=== PATIENT | male | born 1945 | race Caucasian/White ===

== ENCOUNTER 2016-08-27 06:31 | Day surgery (SDC) | payer MEDICARE, OTHER ==
[2016-08-23 14:28] VITALS: BMI 25.0
[~2016-08-27 06:31] MED LIST: LACTATED RINGERS 1,000 ML IV SCH
[2016-08-27 08:03] VITALS: RESP 16; TEMP 97
[2016-08-27] MEDS ORDERED: LIDOCAINE 1% 20 ML VIAL (10MG/ML) FOR IV START INTRADERMA ONE (08:08)
[2016-08-27] MEDS ORDERED: LIDOCAINE 1% INJ 10MG/ML (20 ML MDV) ONE (08:10)
[2016-08-27] MEDS ORDERED: PROPOFOL 10 MG/ML 20 ML VIAL IV ONE (08:10)
--- NOTE | 2016-08-27 08:58 | P.PCN ---
Date of Procedure: 08/27/16 Preoperative Diagnosis: Patient history colon polyps Postoperative Diagnosis: Same extremely poor bowel prep Procedure(s) Performed: Attempted colonoscopy Implants: Anesthesia: MAC Surgeon: Isabel Cm Estimated Blood Loss (ml): 0 IV fluids (ml): 700 Pathology: none sent Condition: stable Disposition: PACU Indications for Procedure: History of colon polyps aborted colonoscopy March secondary to poor bowel prep Operative Findings: Extremely poor bowel prep with copious amounts of liquid stool repeatedly flowing into the colonic lumen Description of Procedure: Patient was taken to the endoscopy suite and following sedation he underwent an EGD, following this an attempted colonoscopy was performed. He was placed in the left lateral decubitus position. Prior to the procedure the patient began to pass stool and gas. He passed copious amounts of liquid stool. The patient underwent a rectal exam patient was noted to have adequate sphincter tone no masses noted. The scope was introduced into the rectum and able to be passed through the rectum and sigmoid colon constantly suctioning liquid stool which was passed into the lumen of the bowel. Although attempts were made to flush the bowel the stool from above was liquid and was continuously flowing into the lumen. The scope was able to be advanced to approximately 100cm and was believed to be in the area of the right colon however large amounts of stool were present. Despite attempts to suction the stool clean bowel secondary to stool continuously coming from above. In the distalmost part of the scope there was noted to be inflammation of the mucosa and a possible hemangioma again however secondary to the repeat covering of this area with stool it was felt that it was not safe to do a biopsy at this time. Recommended that the patient undergo a several-day colon cleansing prior to any repeated attempts to do another colonoscopy. Fashion/plan: 1. Extremely poor bowel prep repeat colonoscopy after new bowel prep
--- NOTE | 2016-08-27 08:59 | P.PCN ---
Date of Procedure: 08/27/16 Preoperative Diagnosis: Postoperative Diagnosis: Procedure(s) Performed: Procedure: Esophagogastroduodenoscopy and biopsy. Preoperative diagnosis: Iron deficiency anemia and history of ulcer disease. Postoperative diagnosis: 1. Hiatal hernia with no obvious esophagitis or complicated reflux disease. 2. Mild antral gastritis. 3. Multiple biopsies obtained from the duodenum, antrum and esophagus. Preparation sedation: Was provided by anesthesia. Brief clinical history: The patient is a 70-year-old male who is scheduled today for colonoscopy with Dr. Cm who asked that I perform an upper endoscopy at the same time because of history of iron deficiency anemia and ulcer disease. The patient is not having any upper GI complaints or any alarm symptoms. Procedure: With the patient on his left lateral decubitus position and after informed consent and adequate sedation, I passed the Olympus-GIF 160 video upper endoscope through the cricopharyngeus down the esophagus. GE junction was around 40 cm from the incisors and there was a small sliding hiatal hernia. The esophagus did not show any obvious erosions, ulcers, strictures or Garcia 's esophagus. The endoscope was then passed into the stomach which was insufflated with air and inspected in detail including the retroflex view in the cardia. There was some mottling and erythema and minimal friability in the antrum and immediate prepyloric area but no ulcers or erosions. Pyloric channel , duodenal bulb, post bulbar area and descending duodenum appeared within normal limits. Because of his anemia, I obtained biopsies from the duodenum, antrum and esophagus then the endoscope was withdrawn. The patient tolerated the procedure well. Plan: The patient will be undergoing colonoscopy shortly. Will await biopsy results and further plans can be made based on his course and biopsy results. I would be happy to see in the future if needed. Implants: Indications for Procedure: Operative Findings: Description of Procedure:
--- NOTE | 2016-08-27 09:00 | P.DS ---
Providers Attending physician: Isabel mC Primary care physician: Cristofer Jones Plan - Discharge Summary Discharge Medication List Albuterol Inhaler [Ventolin Hfa Inhaler] 1 puff INHALATION DAILY PRN 11/02/13 [ History] DULoxetine HCL [Cymbalta] 30 mg PO BID 11/02/13 [History] LORazepam [LORazepam] 1 mg PO TID 11/02/13 [History] Albuterol Nebulized [Ventolin Nebulized] 2.5 mg INHALATION DAILY PRN 03/15/16 [ History] Cyanocobalamin (Vitamin B-12) [Vitamin B-12] 6,000 mcg PO DAILY 03/15/16 [ History] Ferrous Sulfate [Feosol] 325 mg PO DAILY 03/15/16 [History] L.acidoph,Paracasei, B.lactis [Probiotic] 1 each PO DAILY 03/15/16 [History] Methylsulfonylmethane [MSM] 1,000 mg PO DAILY 03/15/16 [History] Mometasone Furoate [Asmanex Hfa] 1 puff INHALATION BID 03/15/16 [History] Multivitamins, Thera [Multivitamin] 1 tab PO DAILY 03/15/16 [History] Naproxen Sodium [Aleve] 220 mg PO DAILY PRN 03/15/16 [History] Omeprazole 20 mg PO BID 03/15/16 [History] Oxybutynin Chloride 5 mg PO BID 03/15/16 [History] Polyethylene Glycol 3350 [Miralax] 17 gm PO DAILY 03/15/16 [History] Triamcinolone Acetonide [Kenalog] 100 gm TP DAILY PRN 03/15/16 [History] Tiotropium Br/Olodaterol HCl [Stiolto Respimat Inhal Allen] 2 spray INHALATION DAILY 08/23/16 [History] Follow up Appointment(s)/Referral(s): Isabel Cm MD [STAFF PHYSICIAN] - 3 Days Discharge Disposition: HOME SELF-CARE
[2016-08-27 09:29] VITALS: BP 158/86; PULSE 59
== END 2016-08-27 09:55 | disposition home or self-care (01) ==
LOC: ORWHC2ENDO 06:31
PROVIDERS: ATTEND Surgery
DX: K29.50 Unspecified chronic gastritis without bleeding (principal); K21.0 Gastro-esophageal reflux disease with esophagitis; D50.9 Iron deficiency anemia, unspecified; Z86.010 Personal history of colon polyps; K44.9 Diaphragmatic hernia without obstruction or gangrene; J44.9 Chronic obstructive pulmonary disease, unspecified; Z87.891 Personal history of nicotine dependence; Z79.51 Long term (current) use of inhaled steroids; Z79.899 Other long term (current) drug therapy; Z91.013 Allergy to seafood
CPT/HCPCS: 88305; 88342; 45378; 43239; J2001; J2704

== ENCOUNTER → 2018-05-05 | Outpatient (CLI) | payer MEDICARE, OTHER ==
--- NOTE | 2018-05-05 15:03 | CONS ---
CONSULTATION REASON FOR CONSULTATION: Disruptive sleep and excessive daytime sleepiness. HISTORY OF PRESENT ILLNESS: A 72-year-old male patient who is coming in for evaluation at the [facility] because of feeling tired and sleepy all the time. Despite sleeping, the patient does not feel refreshed and is constantly feeling fatigued and tired and his symptoms are excessive. For that reason, he decided to come back to the [facility]. Going back through her records, the patient came in for similar complaints back in 2014 and at that time, the patient was seen by Dr. Brown for a sleep evaluation. A sleep study was conducted on 11/14/2014. At that time, the patient used to weigh around 197 pounds. He sleep efficiency back pain was 76% with a latency to sleep onset of around 19 minutes. No REM was identified and the patient's sleep architecture was quite abnormal with over representation of stage I sleep that was approaching 38% in addition to 55% stage II, 6.2% stage III, and 0% REM sleep. He had an arousal index of 42 with a total of 242 arousals and his apnea-hypopnea index was 11.9. The patient also had severe periodic limb movement with a total of 641 periodic limb movements counted with an index of 113. There were 38 periodic limb movements with arousals with an index of 6.7. Based on these results, the patient was given a CPAP therapy pressure of 11 cm of water. The patient tried the CPAP and subsequently he quit the treatment as the patient was unable to tolerate CPAP therapy. I noted that on his CPAP titration study, the patient continued to have excessive periodic limb movements. The arousal index dropped down to 6.3, with complete elimination of the obstructive respiratory events. On today's evaluation, I find this patient quite anxious. He has been going to bed around 10 p.m. and getting up panic at 10 a.m. in the morning. His anxiety has been extensive as the patient had some marital issues. He is currently on a combination of Ativan 0.5 mg 3 times a day and the patient is heavily dependent on benzodiazepines. The patient also has been on a combination of BuSpar at a dose of 5 mg 1 tablet twice a day and venlafaxine 75 mg SA 1 tablet a day. He has had iron deficiency and based on the most recent record, his serum iron level is up to 59 and the patient is on iron supplements orally. The patient's iron levels are from 09/10/2017. In terms of sleep apnea, the patient has lost around 16 to 17 pounds. He is not snoring for now. His main issue is inability to effectively get refreshed after sleeping a good number of hours of sleep. His blood work otherwise is within normal limits. He has normal thyroid function test and liver function tests and the rest of the blood work and electrolytes are within normal limits. His current Alsey Score is at 13. No sleep paralysis. No hallucinations. No cataplexy. No other complaints otherwise. PAST MEDICAL HISTORY: 1. Mild obstructive sleep apnea, as mentioned, with an AHI of 11.9. 2. Severe periodic limb movements. 3. Chronic anxiety. 4. Depression. 5. History of headaches. 6. Acid reflux. 7. BPH. 8. Attention deficit disorder. 9. Bronchial asthma. 10.Iron deficiency currently on oral iron supplements. 11.Psoriasis. PAST SURGICAL HISTORY: Includes penile body plication in addition to hand surgery. DRUG ALLERGIES: Not known. SOCIAL HISTORY: The patient is a former smoker. No history of alcohol. No history of IV drugs. CURRENT MEDICATIONS: Include ProAir rescue inhaler on a as-needed basis, Mometasone 220 mcg 2 puffs once a day, 2 puffs once a day. BuSpar 5 mg p.o. twice a day. Lorazepam 0.5 mg 3 times a day. Venlafaxine 75 mg SA 1 tablet a day. Oxybutynin 5 mg p.o. twice a day, triamcinolone cream, omeprazole 20 mg p.o. daily, calcium supplement, vitamin D supplement, ferrous sulfate 25 mg p.o. daily, cyanocobalamin and albuterol HFA on a p.r.n. basis. SOCIAL HISTORY: Former smoker. No history of alcohol, no history of IV drugs. FAMILY HISTORY: Negative for sleep apnea. REVIEW OF SYSTEMS: A 12-point review of system was done. The patient admits to have some restlessness in lower extremities. Numbness, tingling and restlessness that sometimes wakes him up and gives him the urge to walk. He wakes up with dry mouth. He has lost about 17 pounds. No naps during the day. No dreams. He does not wake up in the middle of the night. He has not been involved in a motor vehicle accident because of feeling drowsy or sleepy. PHYSICAL EXAMINATION: His current vital signs are as follows. His Alsey score is at 13. The blood pressure is 150/75, pulse 58, respirations 16, temperature 97.5, saturation 97% on room air. BMI 24.5, weight is 181, height is 6, 2, neck size 15.5 inches, Alsey score is 13. GENERAL APPEARANCE: Calm, comfortable. Head is atraumatic, normocephalic. Neck is supple. No JVD. No goiter or neck masses. LUNGS: Clear to auscultation. HEART: Sounds regular rate and rhythm. Normal S1, S2. No S3, S4. No murmurs. ABDOMEN: Soft, nontender. No organomegaly. EXTREMITIES: No edema. No cyanosis or clubbing. NEUROLOGIC: The patient is alert and oriented x3. No focal neurological deficits. PSYCHIATRIC: The patient has increased anxiety. No symptoms of active depression, no PTSD. Skin history of psoriasis, currently neck stable. IMPRESSION: Hypersomnia, chronic Alsey score of 13. The patient seems to be sleeping good, more than 8 hours in 24 hours. Yet, he is waking up non refreshed and he is feeling sleepy and tired during the day. He has been diagnosed having obstructive sleep apnea four years ago. However, since then, the patient has lost around 16, 17 pounds. Note that the patient was started on CPAP therapy at that time, and the treatment had failed and the patient opted not to proceed with the treatment. Since then, the patient has lost weight and has not been on any GILBERTO treatment. I noted that he had excessive periodic limb movement in the lower extremities on his previous sleep studies. This was noted on his polysomnogram and his CPAP titration. The patient has some symptoms to suggest restless legs syndrome. He is on a SSRI which potentially exacerbates the periodic limb movements. It is likely, that periodic limb movements/restless leg may be potentiating or exacerbating his daytime sleepiness by making this patient's sleep more fragmented. This is something that we need to concentrate further. Other comorbidities include increased anxiety and some episodic pain which could be viewed as additional factors affecting the patient's sleep quality. My overall impression is that the sleep apnea has a limited role in the patient's symptoms. PLAN: 1. I asked the patient to continue the same medication. 2. Continue iron supplements. 3. Serum iron levels are within normal limits. 4. Rest of the blood work and within normal limits. 5. Repeat a screening polysomnogram to reevaluate this patient. 6. Evaluate the extent of sleep disruption and decide on the factors that are affecting the patient's inability to maintain sleep. Accordingly, will make further recommendations. I am very much inclined treating periodic limb movements which in my view could have been one of the main factors affecting this patient's sleep maintenance. Prosper continue to follow and make final recommendations following his polysomnogram. MMODL / IJN: [id number] /
== END | disposition home or self-care (01) ==
LOC: SLEEP 13:29
PROVIDERS: ATTEND Internal Medicine Critical Care Medicine
DX: G47.10 Hypersomnia, unspecified (principal); F41.9 Anxiety disorder, unspecified; R52 Pain, unspecified; Z87.891 Personal history of nicotine dependence; Z79.899 Other long term (current) drug therapy
CPT/HCPCS: 99211

== ENCOUNTER 2018-08-10 14:30 | Observation (INO) | payer MEDICARE, OTHER ==
[2018-08-10] MEDS ORDERED: SODIUM CHLORIDE 0.9% 500 ML 500 ML IV ONE (15:48)
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
[2018-08-10 16:26] LABS: Basophils % (A) 0 %; Eosinophils # (A) 0.1 k/uL (0-0.7); Eosinophils % (A) 1 %; HCT 35.5 % (39.0-53.0); HGB 11.2 gm/dL (13.0-17.5); Hypochromasia Moderate; Lymphocytes # (A) 0.6 k/uL (1.0-4.8); Lymphocytes % (A) 11 %; MCH 23.3 pg (25.0-35.0); MCHC 31.5 g/dL (31.0-37.0); Mean Platelet Volume 7.4; Microcytosis Slight; Monocytes # (A) 0.4 k/uL (0-1.0); Monocytes % (A) 7 %; Neutrophils # (A) 4.3 k/uL (1.3-7.7); Neutrophils % (A) 78 %; Platelet Count 224 k/uL (150-450); RDW 14.8 % (11.5-15.5); WBC 5.5 k/uL (3.8-10.6)
[2018-08-10 16:32] LABS: Glucose,Whole Blood 82 mg/dL (75-99)
[2018-08-10 16:39] LABS: ALT 20 U/L (21-72); AST 15 U/L (17-59); Albumin 3.3 g/dL (3.5-5.0); Alkaline Phosphatase 80 U/L (38-126); Anion Gap 7 mmol/L; Blood Urea Nitrogen 18 mg/dL (9-20); Calcium 9.2 mg/dL (8.4-10.2); Carbon Dioxide 24 mmol/L (22-30); Chloride 110 mmol/L (98-107); Glucose 89 mg/dL (74-99); Potassium 4.1 mmol/L (3.5-5.1); Sodium 141 mmol/L (137-145); Total Bilirubin 0.9 mg/dL (0.2-1.3); Total Protein 5.6 g/dL (6.3-8.2)
[2018-08-10 16:51] LABS: INR 0.9 (<1.2); Partial Thromboplastin Time 24.3 sec (22.0-30.0); Prothrombin Time 10.2 sec (9.0-12.0)
--- NOTE | 2018-08-10 16:54 | CT ---
EXAMINATION TYPE: CT brain wo con DATE OF EXAM: 08/10/2018 COMPARISON: None HISTORY: altered mental status CT DLP: 1153.4 mGycm Automated exposure control for dose reduction was used. FINDINGS: There is cerebral cortical atrophy. There is no mass effect nor midline shift. There is no sign of in tracranial hemorrhage. The calvarium is intact. There is a 9 mm rounded soft tissue density mass within the right orbit lateral to the optic nerve. T he globes are symmetric. Extraocular muscles are fairly symmetric. Mass appears separate from the keyanna be. Mass effect has contact with the lateral aspect of the optic nerve. IMPRESSION: CEREBRAL ATROPHY. NO ACUTE INTRACRANIAL ABNORMALITY. 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
[2018-08-10 17:36] LABS: Appearance,Urine Clear (Clear); Bilirubin,Urine Negative (Negative); Blood,Urine Negative (Negative); Color,Urine Yellow; Glucose,Urine (UA) Negative (Negative); Ketones,Urine 1+ (Negative); Leukocyte Esterase,Urine Negative (Negative); Nitrite,Urine Negative (Negative); Protein,Urine Negative (Negative); Specific Gravity,Urine 1.016 (1.001-1.035); Urobilinogen,Urine <2.0 mg/dL (<2.0)
--- NOTE | 2018-08-10 17:43 | XR ---
EXAMINATION TYPE: XR chest 2V DATE OF EXAM: 08/10/2018 COMPARISON: 05/31/2016 HISTORY: Altered mental status TECHNIQUE: Frontal and lateral views of the chest are obtained. FINDINGS: There is no heart failure nor confluent pneumonic infiltrate. Heart size is normal. There is no pleural effusion. There is 20% loss of height of T12 vertebra. There are no hilar masses. IMPRESSION: No active cardiopulmonary disease. Old T12 mild compression fracture.
[2018-08-10 17:58] LABS: Amphetamine Screen,Urine Not Detected (NotDetected); Barbiturate Screen,Urine Not Detected (NotDetected); Benzodiazepines Screen,Urine Detected (NotDetected); Cocaine Screen,Urine Not Detected (NotDetected); Methadone Screen, Urine Not Detected (NotDetected); Opiate Screen,Urine Not Detected (NotDetected); Oxycodone Screen, Urine Not Detected (NotDetected); Phencyclidine Screen,Urine Not Detected (NotDetected); Tricyclic Antidepressant,Urine Not Detected (NotDetected); Urn Cannabinoid Scrn Not Detected (NotDetected)
[2018-08-10] MEDS ORDERED: SODIUM CHLORIDE 0.9% 1,000 ML IV ONE (18:20)
[2018-08-10] MEDS ORDERED: CYCLOBENZAPRINE 10 MG TAB PO PRN (22:28)
[2018-08-10] MEDS ORDERED: ALBUTEROL NEBULIZED 2.5 MG/3 ML INHALATION PRN (22:28)
[2018-08-10] MEDS: OXYBUTYNIN CHLORIDE 5 MG TAB PO SCH (23:20)
[2018-08-10] MEDS: LORazepam 1 MG TAB PO PRN (23:20)
[2018-08-11] MEDS ORDERED: PANTOPRAZOLE 40 MG TABLET PO SCH (07:30)
[2018-08-11] MEDS: IPRATROPIUM 0.5 MG/2.5 ML NEBU INHALATION SCH ×4 (07:37→19:28)
[2018-08-11] MEDS: FORMOTEROL FUMARATE 20 MCG/2 ML NEBU INHALATION SCH ×2 (07:37→19:28)
[2018-08-11] MEDS: OXYBUTYNIN CHLORIDE 5 MG TAB PO SCH ×2 (08:41→20:42)
[2018-08-11] MEDS: LORazepam 1 MG TAB PO PRN ×2 (08:44→20:42)
[2018-08-11] MEDS ORDERED: VENLAFAXINE HCL ER 150 MG CAP PO SCH (09:00)
[2018-08-11] MEDS ORDERED: VITAMIN E (DL,TOCOPHERYL ACET) 400 UNIT CAP PO SCH (09:00)
[2018-08-11 09:30] LABS: T4, Free (Free Thyroxine) 1.3 ng/dL (0.78-2.19)
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
[2018-08-11 13:38] VITALS: RESP 18
[2018-08-11 19:28] VITALS: BP 162/77; TEMP 98
[2018-08-11 19:30] VITALS: PULSE 58
== END 2018-08-11 21:40 | disposition other institution (70) ==
LOC: EC 14:30 → 4MS4W 18:20
PROVIDERS: ADMIT Family Medicine; ATTEND Family Medicine
DX: R41.82 Altered mental status, unspecified (principal); R41.89 Other symptoms and signs involving cognitive functions and awareness; R41.3 Other amnesia; G93.9 Disorder of brain, unspecified; K21.9 Gastro-esophageal reflux disease without esophagitis; J44.9 Chronic obstructive pulmonary disease, unspecified; L40.9 Psoriasis, unspecified; N48.6 Induration penis plastica; F41.9 Anxiety disorder, unspecified; R06.00 Dyspnea, unspecified; H53.9 Unspecified visual disturbance; E03.9 Hypothyroidism, unspecified; E46 Unspecified protein-calorie malnutrition; Z79.899 Other long term (current) drug therapy; Z91.013 Allergy to seafood; Z87.891 Personal history of nicotine dependence; Z87.81 Personal history of (healed) traumatic fracture
CPT/HCPCS: 96361 ×2; 96360; 99285; 36415; 94640 ×2; 93005; 84439; 80053; 84443; 84484; 85025; 85610; 85730; 81003; 80306; 71046; 70450; G0378 ×2

== ENCOUNTER 2020-11-01 10:10 | Day surgery (SDC) | payer MEDICARE, OTHER ==
[2020-10-27 13:44] VITALS: BMI 23.1
--- NOTE | 2020-11-01 07:37 | P.GSHP ---
History of Present Illness H&P Date: 11/01/20 CHIEF COMPLAINT: GERD and colon screen HISTORY OF PRESENT ILLNESS: The patient is a 75-year-old male who presents with gastroesophageal reflux disease and need for colon screen. Upper and lower endoscopy were offered for further evaluation and management. PAST MEDICAL HISTORY: Please see list. PAST SURGICAL HISTORY: Please see list. MEDICATIONS: Please see list. ALLERGIES: Please see list. SOCIAL HISTORY: No illicit drug use FAMILY HISTORY: No reports of Crohn disease or ulcerative colitis. REVIEW OF ORGAN SYSTEMS: CONSTITUTIONAL: No reports of fevers or chills. GI: Denies any blood in stools or constipation. PHYSICAL EXAM: VITAL SIGNS: Stable GENERAL: Well-developed pleasant in no acute distress. HEENT: No scleral icterus. Extraocular movements grossly intact. Moist buccal mucosa. NECK: Supple without lymphadenopathy. CHEST: Unlabored respirations. Equal bilateral excursions. CARDIOVASCULAR: Regular rate and rhythm. Distal 2+ pulses. ABDOMEN: Soft, nondistended. MUSCULOSKELETAL: No clubbing, cyanosis, or edema. ASSESSMENT: 1. Gastroesophageal reflux disease 2. Colon screen. PLAN: 1. Recommend proceeding with an upper and lower endoscopy Past Medical History Past Medical History: Asthma, GERD/Reflux, Memory Impairment, Skin Disorder, Thyroid Disorder Additional Past Medical History / Comment(s): PSORIASIS. PEYRONIES DISORDER, HX Ulcers, History of Any Multi-Drug Resistant Organisms: None Reported Past Surgical History: Orthopedic Surgery Additional Past Surgical History / Comment(s): PENILE CORPRAL BODY PLICATION. HAND SX X2 Past Anesthesia/Blood Transfusion Reactions: No Reported Reaction Smoking Status: Former smoker - Past Family History Mother Family Medical History: No Reported History Medications and Allergies Home Medications Medication Instructions Recorded Confirmed Type Albuterol Inhaler (Mhu) [Ventolin 2 puff INHALATION RT-Q4H PRN 11/02/13 10/27/20 History Hfa Inhaler (Mhu)] Omeprazole 40 mg PO DAILY 03/15/16 10/27/20 History Oxybutynin Chloride 5 mg PO DAILY 03/15/16 10/27/20 History Venlafaxine HCl [Effexor XR] 37.5 mg PO DAILY 08/10/18 10/27/20 History Cholecalciferol [Vitamin D3 (25 50 mcg PO DAILY 10/27/20 10/27/20 History Mcg = 1000 Iu)] Cyanocobalamin (Vitamin B-12) 1,000 mcg PO DAILY 10/27/20 10/27/20 History [Vitamin B-12] Donepezil [Aricept] 10 mg PO HS 10/27/20 10/27/20 History Melatonin 3 mg PO HS 10/27/20 10/27/20 History Memantine [Namenda] 10 mg PO DAILY 10/27/20 10/27/20 History Mometasone Furoate [Asmanex Hfa] 1 puff INHALATION DAILY 10/27/20 10/27/20 History Tiotropium Br/Olodaterol HCl 2 puff INHALATION DAILY 10/27/20 10/27/20 History [Stiolto Respimat Inhal [place]] buPROPion XL [Wellbutrin Xl] 150 mg PO DAILY 10/27/20 10/27/20 History modafiniL [Provigil] 100 mg PO QAM 10/27/20 10/27/20 History Allergies Allergy/AdvReac Type Severity Reaction Status Date / Time shellfish derived Allergy Swelling Verified 10/27/20 13:30
[~2020-11-01 10:10] MED LIST changes: +LIDOCAINE 1% (10MG/ML) FOR IV START INTRADERMA PRN
[2020-11-01 10:58] VITALS: TEMP 96.9
[2020-11-01] MEDS ORDERED: PHENYLEPHRINE-0.9% NACL SYG 1,000 MCG/10 ML SYRINGE ONE (11:20)
[2020-11-01] MEDS ORDERED: PROPOFOL 10 MG/ML 20 ML VIAL IV ONE (11:20)
[2020-11-01] MEDS ORDERED: LIDOCAINE 1% INJ 10MG/ML (20 ML MDV) ONE (11:20)
[2020-11-01 12:13] VITALS: BP 126/58; PULSE 50; RESP 16
--- NOTE | 2020-11-01 12:22 | P.PCN ---
Date of Procedure: 11/01/20 Description of Procedure: PREOPERATIVE DIAGNOSIS: Gastroesophageal reflux disease. Epigastric abdominal pain POSTOPERATIVE DIAGNOSIS: Gastritis. Gastroesophageal reflux disease. Diaphragmatic hiatal hernia OPERATION: Esophagogastroduodenoscopy with biopsies along antrum. SURGEON: Brenda Briceño MD ANESTHESIA: MAC. INDICATIONS: The patient is a 75-year-old and epigastric abdominal pain male who presents with a history of reflux disease. Benefits and risks of the procedure were described. Informed consent was obtained. DESCRIPTION: The patient was brought into the endoscopy suite and laid in the left lateral decubitus position. An Olympus gastroscope was passed along the posterior oropharynx down to the distal esophagus where the squamocolumnar junction was encountered at 44 cm from the incisors. The stomach was entered and no bile reflux was found. Additional findings are listed below. Biopsies with cold forceps were obtained of the antrum. The first through third portion of the duodenum was examined and unremarkable. Retroflexion of the scope confirmed Hill grade 4 lower esophageal valve. The squamocolumnar junction demonstrated LA grade B erosive esophagitis. The stomach was desufflated. The patient tolerated the procedure well. FINDINGS: Squamocolumnar junction 44 cm from the incisors. Diaphragmatic hiatus at 45 cm. Hiatal hernia, 1 cm Hill grade 4 lower esophageal valve. LA grade B erosive esophagitis. No active duodenitis. Chronic gastritis RECOMMENDATIONS: Upper endoscopy as needed.
--- NOTE | 2020-11-01 12:42 | P.PCN ---
Date of Procedure: 11/01/20 Description of Procedure: PREOPERATIVE DIAGNOSIS: Personal history of colon polyps Colonoscopy screening POSTOPERATIVE DIAGNOSIS: Tubular adenoma descending colon Tubular adenoma transverse colon Tubular adenoma ascending colon Sigmoid diverticulosis OPERATION: Colonoscopy to the ileocecal valve and appendiceal orifice, cecum Colonoscopy with hot snare polypectomy SURGEON: Brenda Briceño MD. ANESTHESIA: MAC. INDICATIONS: The patient is an 75-year-old male who presents personal history of colon polyps. Last colonoscopy over 5 years. Benefits and risks were described and informed consent was obtained. DESCRIPTION OF PROCEDURE: The patient had undergone Sutab prep. He underwent over 2 day prep. The patient had been brought into the operating room and laid in the left lateral decubitus position. After adequate intravenous sedation, the rectum was examined with 2% lidocaine jelly. The prostate was unremarkable. No external hemorrhoids were encountered. The rectal tone was within normal limits. No lesions were palpated in the rectal vault. An Olympus colonoscope was advanced until the cecum, ileocecal valve and appendiceal orifice were clearly viewed. The prep was fair. The sigmoid colon was highly redundant requiring abdominal wall pressure. Sigmoid diverticulosis was encountered. Colonic polyps were found and removed. No evidence of focal colitis was found. Retroflexion of the scope demonstrated grade 2 internal hemorrhoids without active bleeding or inflammation. The colon was desufflated. The patient had tolerated the procedure well. Withdrawal time was over 6 minutes. FINDINGS: Aronchick preparation quality scale 3 (1-5) Internal hemorrhoids, grade 2 No external hemorrhoids No arteriovenous malformations. Sigmoid diverticulosis Removal of 5 polyps: - Snare polypectomy ascending colon, 5 mm tubulovillous adenoma polyp. - Snare polypectomy transverse colon 3, 5-8 mm flat villous adenoma polyp. - Snare polypectomy descending colon, 5 mm flat villous adenoma polyp. No focal colitis. RECOMMENDATIONS: 1. Recommend colon prep more than 2 days 2. Repeat colonoscopy 3 years, 2023 Plan - Discharge Summary Discharge Rx Participant: No New Discharge Prescriptions: Continue Albuterol Inhaler (Mhu) [Ventolin Hfa Inhaler (Mhu)] 2 puff INHALATION RT-Q4H PRN PRN Reason: Shortness Of Breath Oxybutynin Chloride 5 mg PO DAILY Omeprazole 40 mg PO DAILY Venlafaxine HCl [Effexor XR] 37.5 mg PO DAILY Tiotropium Br/Olodaterol HCl [Stiolto Respimat Inhal [place]] 2 puff INHALATION DAILY Mometasone Furoate [Asmanex Hfa] 1 puff INHALATION DAILY Melatonin 3 mg PO HS Donepezil [Aricept] 10 mg PO HS Cyanocobalamin (Vitamin B-12) [Vitamin B-12] 1,000 mcg PO DAILY buPROPion XL [Wellbutrin XL] 150 mg PO DAILY Cholecalciferol [Vitamin D3 (25 Mcg = 1000 Iu)] 50 mcg PO DAILY Memantine [Namenda] 10 mg PO DAILY modafiniL [Provigil] 100 mg PO QAM Discharge Medication List Albuterol Inhaler (Mhu) [Ventolin Hfa Inhaler (Mhu)] 2 puff INHALATION RT-Q4H PRN 11/02/13 [History] Omeprazole 40 mg PO DAILY 03/15/16 [History] Oxybutynin Chloride 5 mg PO DAILY 03/15/16 [History] Venlafaxine HCl [Effexor XR] 37.5 mg PO DAILY 08/10/18 [History] Cholecalciferol [Vitamin D3 (25 Mcg = 1000 Iu)] 50 mcg PO DAILY 10/27/20 [History] Cyanocobalamin (Vitamin B-12) [Vitamin B-12] 1,000 mcg PO DAILY 10/27/20 [History] Donepezil [Aricept] 10 mg PO HS 10/27/20 [History] Melatonin 3 mg PO HS 10/27/20 [History] Memantine [Namenda] 10 mg PO DAILY 10/27/20 [History] Mometasone Furoate [Asmanex Hfa] 1 puff INHALATION DAILY 10/27/20 [History] Tiotropium Br/Olodaterol HCl [Stiolto Respimat Inhal [place]] 2 puff INHALATION DAILY 10/27/20 [History] buPROPion XL [Wellbutrin XL] 150 mg PO DAILY 10/27/20 [History] modafiniL [Provigil] 100 mg PO QAM 10/27/20 [History] Follow up Appointment(s)/Referral(s): Brenda Briceño MD [STAFF PHYSICIAN] - 11/09/20 Patient Instructions/Handouts: Hiatal Hernia (DC), Colorectal Polyps (GEN) Activity/Diet/Wound Care/Special Instructions: Repeat colonoscopy 3 years, 2023 Discharge Disposition: HOME SELF-CARE
== END 2020-11-01 13:13 | disposition home or self-care (01) ==
LOC: ORWHC2ENDO 10:10
PROVIDERS: ATTEND Surgery Plastic and Reconstructive Surgery
DX: K29.50 Unspecified chronic gastritis without bleeding (principal); K57.30 Diverticulosis of large intestine without perforation or abscess without bleeding; K44.9 Diaphragmatic hernia without obstruction or gangrene; Z79.51 Long term (current) use of inhaled steroids; K21.9 Gastro-esophageal reflux disease without esophagitis; D12.2 Benign neoplasm of ascending colon; D12.3 Benign neoplasm of transverse colon; D12.4 Benign neoplasm of descending colon; J45.909 Unspecified asthma, uncomplicated; Z87.891 Personal history of nicotine dependence; Z87.19 Personal history of other diseases of the digestive system; F41.8 Other specified anxiety disorders; Z79.82 Long term (current) use of aspirin; F03.90 Unspecified dementia, unspecified severity, without behavioral disturbance, psychotic disturbance, mood disturbance, and anxiety
CPT/HCPCS: 45385; 43239; 88305; J2001; J2370; J2704

== ENCOUNTER 2021-03-13 15:14 | Inpatient (IN) | payer MEDICARE, OTHER ==
[2021-03-13] MEDS ORDERED: SODIUM CHLORIDE 0.9% 1,000 ML IV STA (15:43)
--- NOTE | 2021-03-13 15:46 | ED ---
General Adult HPI - General Chief complaint: Weakness Stated complaint: AMS/Weakness Time Seen by Provider: 03/13/21 15:19 Source: EMS Mode of arrival: EMS Limitations: no limitations - History of Present Illness Initial comments: Dictation was produced using [employer] dictation software. please excuse any grammatical, word or spelling errors. Chief Complaint: [id number] male past medical history of dementia brought to the emergency department for altered mental status and episode of hypotension and weakness History of Present Illness: She is a 75-year-old male he lives at assisted living facility. Today patient was found wandering the hallways. He was redirected by staff to go back to his room. Patient was put in a chair. Supposedly he was found on the ground. There was noticed stool behind him. EMS was called. EMS reports the patient was mildly hypertensive initially. He is given some fluids and patient brought to the emergency department. Patient is a poor historian. Suffers from dementia. He has no complaints. He states he wants to go to sleep. The ROS documented in this emergency department record has been reviewed and confirmed by me. Those systems with pertinent positive or negative responses wood ve been documented in the HPI. All other systems are other negative and/or noncontributory. PHYSICAL EXAM: General Impression: Alert and oriented x3, not in acute distress HEENT: Normocephalic atraumatic, extra-ocular movements intact, pupils equal and reactive to light bilaterally, mucous membranes moist. Cardiovascular: Heart regular rate and rhythm Chest: Able to complete full sentences, no retractions, no tachypnea Abdomen: abdomen soft, non-tender, non-distended, no organomegaly Musculoskeletal: Pulses present and equal in all extremities, no peripheral edema Motor: no focal deficits noted Neurological: CN II-XII grossly intact, no focal motor or sensory deficits noted Skin: Intact with no visualized rashes Psych: Normal affect and mood ED course: 75-year-old male with past medical history dementia presents emergency department after terms of potential fall versus weakness and episode of hypotension. Vital signs upon arrival are within acceptable limits. Patient has no signs of traumatic injuries at the bedside. His physical examination is benign. No focal weakness or sensory deficit. Return evaluation obtained. CBC unremarkable. Metabolic panel shows elevated renal markers. Patient has BUN of 32 and creatinine of 1.37. He has no history of elevated renal markers. Rotavirus test is negative. Computed tomography scan of brain is unremarkable. No intracranial processes.. Patient reevaluated at bedside at 5:12 PM. Patient's weakness is likely secondary to his dehydration. He is too weak for discharge back to assisted living facility. Patient given fluids. He will be admitted to observation for IV fluids and medical monitoring. EKG interpretation: Ventricular rate 61, normal sinus rhythm,. Interval 186, QRS 1:30, QTC 481, right bundle branch block. No AR prolongation, no QTC prolongation, no ST or T-wave changes noted. EKG compared to 08/10/2018 showing no changes. Overall, this EKG is unremarkable - Related Data Home Medications Medication Instructions Recorded Confirmed Albuterol Inhaler (Mhu) [Ventolin 2 puff INHALATION RT-Q4H PRN 11/02/13 11/01/20 Hfa Inhaler (Mhu)] Omeprazole 40 mg PO DAILY 03/15/16 11/01/20 Oxybutynin Chloride 5 mg PO DAILY 03/15/16 11/01/20 Venlafaxine HCl [Effexor XR] 37.5 mg PO DAILY 08/10/18 11/01/20 Cholecalciferol [Vitamin D3 (25 50 mcg PO DAILY 10/27/20 11/01/20 Mcg = 1000 Iu)] Cyanocobalamin (Vitamin B-12) 1,000 mcg PO DAILY 10/27/20 11/01/20 [Vitamin B-12] Donepezil [Aricept] 10 mg PO HS 10/27/20 11/01/20 Melatonin 3 mg PO HS 10/27/20 11/01/20 Memantine [Namenda] 10 mg PO DAILY 10/27/20 11/01/20 Mometasone Furoate [Asmanex Hfa] 1 puff INHALATION DAILY 10/27/20 11/01/20 Tiotropium Br/Olodaterol HCl 2 puff INHALATION DAILY 10/27/20 11/01/20 [Stiolto Respimat Inhal [place]] buPROPion XL [Wellbutrin XL] 150 mg PO DAILY 10/27/20 11/01/20 modafiniL [Provigil] 100 mg PO QAM 10/27/20 11/01/20 Allergies Allergy/AdvReac Type Severity Reaction Status Date / Time shellfish derived Allergy Swelling Verified 03/13/21 16:42 Review of Systems ROS Statement: Those systems with pertinent positive or pertinent negative responses have been documented in the HPI. ROS Other: All systems not noted in ROS Statement are negative. Past Medical History Past Medical History: Asthma, GERD/Reflux, Memory Impairment, Skin Disorder, Thyroid Disorder Additional Past Medical History / Comment(s): PSORIASIS. PEYRONIES DISORDER, HX Ulcers, History of Any Multi-Drug Resistant Organisms: None Reported Past Surgical History: Orthopedic Surgery Additional Past Surgical History / Comment(s): PENILE CORPRAL BODY PLICATION. HAND SX X2 Past Anesthesia/Blood Transfusion Reactions: No Reported Reaction Past Psychological History: Anxiety, Depression Smoking Status: Former smoker Past Alcohol Use History: None Reported Past Drug Use History: None Reported - Past Family History Mother Family Medical History: No Reported History General Exam Limitations: no limitations Course Vital Signs 03/13/21 15:17 Temperature 99.5 F Pulse Rate 64 Respiratory 18 Rate Blood Pressure 127/65 O2 Sat by Pulse 95 Oximetry Medical Decision Making - Lab Data Result diagrams: 03/13/21 15:39 03/13/21 15:39 Lab Results 03/13/21 03/13/21 03/13/21 Range/Units 15:39 15:39 15:39 WBC 7.1 (3.8-10.6) k/uL RBC 4.45 (4.30-5.90) m/uL Hgb 13.0 (13.0-17.5) gm/dL Hct 39.9 (39.0-53.0) % MCV 89.7 (80.0-100.0) fL MCH 29.3 (25.0-35.0) pg MCHC 32.6 (31.0-37.0) g/dL RDW 13.6 (11.5-15.5) % Plt Count 172 (150-450) k/uL MPV 7.4 Neutrophils % 83 % Lymphocytes % 7 % Monocytes % 7 % Eosinophils % 2 % Basophils % 0 % Neutrophils # 5.9 (1.3-7.7) k/uL Lymphocytes # 0.5 L (1.0-4.8) k/uL Monocytes # 0.5 (0-1.0) k/uL Eosinophils # 0.1 (0-0.7) k/uL Basophils # 0.0 (0-0.2) k/uL Sodium 140 (137-145) mmol/L Potassium 4.0 (3.5-5.1) mmol/L Chloride 110 H (98-107) mmol/L Carbon Dioxide 21 L (22-30) mmol/L Anion Gap 9 mmol/L BUN 32 H (9-20) mg/dL Creatinine 1.37 H (0.66-1.25) mg/dL Est GFR (CKD-EPI)AfAm 58 (>60 ml/min/1.73 sqM) Est GFR (CKD-EPI)NonAf 50 (>60 ml/min/1.73 sqM) Glucose 118 H (74-99) mg/dL Calcium 8.1 L (8.4-10.2) mg/dL Magnesium 1.9 (1.6-2.3) mg/dL Total Bilirubin 1.0 (0.2-1.3) mg/dL AST 16 L (17-59) U/L ALT 8 (4-49) U/L Alkaline Phosphatase 77 (38-126) U/L Total Protein 5.6 L (6.3-8.2) g/dL Albumin 3.1 L (3.5-5.0) g/dL Coronavirus (PCR) Not Detected (Not Detectd) Disposition Clinical Impression: Weakness, Dehydration Disposition: ADMITTED IP TO THIS HOSP Condition: Fair Referrals: Alec Craig MD [Primary Care Provider] - 1-2 days
[2021-03-13 15:48] LABS: Basophils % (A) 0 %; Eosinophils # (A) 0.1 k/uL (0-0.7); Eosinophils % (A) 2 %; HCT 39.9 % (39.0-53.0); Lymphocytes # (A) 0.5 k/uL (1.0-4.8); Lymphocytes % (A) 7 %; MCH 29.3 pg (25.0-35.0); MCHC 32.6 g/dL (31.0-37.0); MCV 89.7 fL (80.0-100.0); Mean Platelet Volume 7.4; Monocytes # (A) 0.5 k/uL (0-1.0); Monocytes % (A) 7 %; Neutrophils # (A) 5.9 k/uL (1.3-7.7); Neutrophils % (A) 83 %; Platelet Count 172 k/uL (150-450); RBC 4.45 m/uL (4.30-5.90); RDW 13.6 % (11.5-15.5); WBC 7.1 k/uL (3.8-10.6)
[2021-03-13 16:10] LABS: Albumin 3.1 g/dL (3.5-5.0); Calcium 8.1 mg/dL (8.4-10.2); Magnesium 1.9 mg/dL (1.6-2.3); Total Protein 5.6 g/dL (6.3-8.2)
--- NOTE | 2021-03-13 16:35 | CT ---
EXAMINATION TYPE: CT brain wo con DATE OF EXAM: 03/13/2021 COMPARISON: 08/10/2018 INDICATION: Patient appears confused DLP: 1202.4 mGycm, Automated exposure control for dose reduction was used. CONTRAST: None CT of the brain is performed utilizing 3 mm thick sections through the posterior fossa and 3 mm thick sections through the remaining calvarium. Study is performed within 24 hours of arrival to the hosp [facility]. No abnormal hyperdensity is present to suggest an acute intracranial hemorrhage. No mass lesion is evident. No acute infarcts are evident. Ventricles and sulci are prominent for the patient age. Paranasal sinuses and mastoid air cells within the [id number] are clear. There is an intraconal mass in the right orbit. This is lateral and superior to the optic nerve. This is near the extraocular muscle. This is present on the comparison study and is stable in size. IMPRESSIONS: 1. Atrophy. 2. MRI could be performed for more sensitive evaluation. 3. Right intraconal mass, stable from 2019
[2021-03-13] MEDS ORDERED: NALOXONE 0.4 MG/ML 1 ML VIAL IV PRN (17:08)
[2021-03-13] MEDS ORDERED: ONDANSETRON 4 MG/2 ML VIAL IVP PRN (17:08)
[2021-03-13] MEDS ORDERED: ACETAMINOPHEN TAB 325 MG TAB PO PRN (17:08)
[2021-03-14] MEDS: SODIUM CHLORIDE 0.9% 1,000 ML IV SCH ×3 (03:18→20:43)
[2021-03-14] MEDS ORDERED: modafiniL 100 MG TAB PO PRN (10:41)
[2021-03-14] MEDS: CHOLECALCIFEROL 25 MCG (1000 IU) TABLET PO SCH (11:37)
[2021-03-14] MEDS: CYANOCOBALAMIN 500 MCG TAB PO SCH (11:37)
[2021-03-14] MEDS: OXYBUTYNIN CHLORIDE 5 MG TAB PO SCH ×3 (11:38→20:42)
[2021-03-14] MEDS: VENLAFAXINE HCL ER 75 MG CAP PO SCH (11:38)
[2021-03-14 11:48] LABS: African American GFR (CKD) 83 (>60 ml/min/1.73 sqM); Anion Gap 3 mmol/L; Basophils % (A) 1 %; Blood Urea Nitrogen 25 mg/dL (9-20); Calcium 8.1 mg/dL (8.4-10.2); Carbon Dioxide 27 mmol/L (22-30); Chloride 110 mmol/L (98-107); Eosinophils # (A) 0.2 k/uL (0-0.7); Eosinophils % (A) 5 %; Glucose 191 mg/dL (74-99); HCT 38.8 % (39.0-53.0); Lymphocytes # (A) 0.4 k/uL (1.0-4.8); Lymphocytes % (A) 10 %; MCH 28.5 pg (25.0-35.0); MCHC 30.9 g/dL (31.0-37.0); MCV 92.2 fL (80.0-100.0); Mean Platelet Volume 7.8; Monocytes # (A) 0.3 k/uL (0-1.0); Monocytes % (A) 6 %; Neutrophils # (A) 3.3 k/uL (1.3-7.7); Neutrophils % (A) 77 %; Non-African American GFR(CKD) 72 (>60 ml/min/1.73 sqM); Platelet Count 164 k/uL (150-450); Potassium 3.9 mmol/L (3.5-5.1); RBC 4.21 m/uL (4.30-5.90); RDW 13.6 % (11.5-15.5); Sodium 140 mmol/L (137-145); WBC 4.2 k/uL (3.8-10.6)
[2021-03-14] MEDS ORDERED: amLODIPine 10 MG TAB PO STA (20:03)
[2021-03-14] MEDS: DONEPEZIL 10 MG TAB PO SCH (20:42)
[2021-03-14] MEDS: MEMANTINE 10 MG TAB PO SCH (20:42)
[2021-03-14] MEDS: PANTOPRAZOLE 40 MG TABLET PO SCH (20:42)
[2021-03-14] MEDS ORDERED: SENNOSIDES 8.6 MG TAB PO PRN (22:34)
--- NOTE | 2021-03-14 22:34 | P.HPIM ---
History of Present Illness H&P Date: 03/14/21 Chief Complaint: Weakness Patient is a 75-year-old male with a known history of memory impairment/dementia, asthma, GERD, hypothyroidism, anxiety/depression and previous history of smoking was brought to ER due to altered mental status and episode of hypotension and weakness. Patient is currently at the assisted living facility. Evidently patient was found wandering the hallways. He was also having generalized weakness. Assisted living facility staff directed him to go to his room. Patient was put in a chair and supposedly he was found on the ground. EMS was called. Patient was started on IV fluids and was brought to ER. Patient was found to be hypotensive on admission. Blood pressure 162/72 pulse is 58 respirations 18 pulse ox 98% on room air. Laboratory showed WBC 7.1 hemoglobin 13.0 platelets 172 lymphocytes 0.5 Sodium 140 potassium 4.0 chloride 110 bicarb is 20 BUN 32 creatinine 1.37 blood sugar is 118 calcium 8.1 Coronavirus PCR not detected. CT head showed atrophy. Right Mass intraconal mass stable from 2019. EKG showed normal sinus rhythm. Patient is a poor historian. Review of Systems Complete review of systems could not be obtained from the patient. Past Medical History Past Medical History: Asthma, GERD/Reflux, Memory Impairment, Skin Disorder, Thyroid Disorder Additional Past Medical History / Comment(s): PSORIASIS. PEYRONIES DISORDER, HX Ulcers, History of Any Multi-Drug Resistant Organisms: None Reported Past Surgical History: Orthopedic Surgery Additional Past Surgical History / Comment(s): PENILE CORPRAL BODY PLICATION. HAND SX X2 Past Anesthesia/Blood Transfusion Reactions: No Reported Reaction Past Psychological History: Anxiety, Depression Smoking Status: Former smoker Past Alcohol Use History: None Reported Additional Past Alcohol Use History / Comment(s): smoked [id number] 10 packs/month Past Drug Use History: None Reported - Past Family History Mother Family Medical History: No Reported History Medications and Allergies Home Medications Medication Instructions Recorded Confirmed Type Oxybutynin Chloride 5 mg PO QID 03/15/16 03/13/21 History Cholecalciferol [Vitamin D3 (25 50 mcg PO DAILY 10/27/20 03/13/21 History Mcg = 1000 Iu)] Cyanocobalamin (Vitamin B-12) 1,000 mcg PO DAILY 10/27/20 03/13/21 History [Vitamin B-12] Donepezil [Aricept] 10 mg PO HS 10/27/20 03/13/21 History Melatonin 3 mg PO HS 10/27/20 03/13/21 History Memantine [Namenda] 10 mg PO BID 10/27/20 03/13/21 History Tiotropium Br/Olodaterol HCl 2 puff INHALATION RT-DAILY 10/27/20 03/13/21 History [Stiolto Respimat Inhal [place]] modafiniL [Provigil] 100 mg PO DAILY PRN 10/27/20 03/13/21 History Albuterol Sulfate [Albuterol 2 puff PO RT-BID 03/13/21 03/13/21 History Sulfate Hfa] Mometasone Furoate [Asmanex] 1 puff INHALATION RT-DAILY 03/13/21 03/13/21 History Omeprazole 40 mg PO HS 03/13/21 03/13/21 History Venlafaxine HCl [Effexor XR] 75 mg PO DAILY 03/13/21 03/13/21 History Allergies Allergy/AdvReac Type Severity Reaction Status Date / Time shellfish derived Allergy Swelling Verified 03/13/21 19:31 Physical Exam Vitals: Vital Signs Temp Pulse Pulse Resp BP BP Pulse Ox 03/14/21 07:00 98.0 F 41 L 17 151/65 96 03/14/21 02:00 59 L 19 03/14/21 00:30 98.0 F 54 L 16 154/74 99 03/13/21 23:15 98.4 F 59 L 19 178/56 99 03/13/21 21:45 98.0 F 58 L 18 162/72 98 03/13/21 15:17 99.5 F 64 18 127/65 95 Intake and Output 03/13/21 03/14/21 03/14/21 22:59 06:59 14:59 Output Total 150 Balance -150 Output: Urine 150 Other: Voiding Method Urinal # Voids 1 Weight 76.204 kg PHYSICAL EXAMINATION: Patient is lying in the bed comfortably, no acute distress, awake alert. Dementia. Patient is pulling out lines... HEENT: Normocephalic. Neck is supple. Pupils reactive. Nostrils clear. Oral cavity is moist. Neck reveals no JVD, carotid bruits, or thyromegaly. CHEST EXAMINATION: Trachea is central. Symmetrical expansion. Lung melissa clear to auscultation and percussion. CARDIAC: Normal S1, S2 with no gallops. No murmurs ABDOMEN: Soft. Bowel sounds normal. No organomegaly. No abdominal bruits. Extremities: reveal no edema. No clubbing or cyanosis Neurologically awake, alert, oriented x1-2 with well-coordinated movements. No focal deficits noted Skin: No rash or skin lesions. Psychiatric: Noncooperative. Could not be assessed completely. Musculoskeletal: No joint swelling or deformity. Normal range of motion. Results CBC & Chem 7: 03/14/21 11:09 03/14/21 11:09 Labs: Abnormal Lab Results - Last 24 Hours (Table) 03/13/21 03/13/21 Range/Units 15:39 15:39 Lymphocytes # 0.5 L (1.0-4.8) k/uL Chloride 110 H (98-107) mmol/L Carbon Dioxide 21 L (22-30) mmol/L BUN 32 H (9-20) mg/dL Creatinine 1.37 H (0.66-1.25) mg/dL Glucose 118 H (74-99) mg/dL Calcium 8.1 L (8.4-10.2) mg/dL AST 16 L (17-59) U/L Total Protein 5.6 L (6.3-8.2) g/dL Albumin 3.1 L (3.5-5.0) g/dL Thrombosis Risk Factor Assmnt - DVT/VTE Prophylaxis DVT/VTE Prophylaxis: Pharmacologic Prophylaxis ordered Assessment and Plan Assessment: Altered mental status possible metabolic encephalopathy. Generalized weakness. Memory impairment/dementia Acute kidney injury likely prerenal. Improving Hypertension Hypothyroidism DVT prophylaxis with heparin subcu Plan: Patient will be continued on IV hydration with normal saline. Monitor renal function blood pressure. Continue with home medications and follow-up closely. PT OT consulted and possible transfer back to assisted care facility. TSH level was ordered.
[2021-03-15] MEDS: SODIUM CHLORIDE 0.9% 1,000 ML IV SCH ×2 (06:00→21:05)
--- NOTE | 2021-03-15 07:27 | XR ---
EXAMINATION TYPE: XR chest 1V DATE OF EXAM: 03/15/2021 HISTORY: Shortness of breath. COMPARISON: 08/10/2018 TECHNIQUE: Single view of the chest is submitted. FINDINGS: Demonstrated are scattered senescent parenchymal change. There is no evidence for focal infiltrate. The heart is stable. Hilar and mediastinal structures are within normal limits. Degenerative changes are seen of the dorsal spine. IMPRESSION: 1. Chronic changes without evidence for acute pulmonary disease.
[2021-03-15] MEDS: CHOLECALCIFEROL 25 MCG (1000 IU) TABLET PO SCH (08:09)
[2021-03-15] MEDS: VENLAFAXINE HCL ER 75 MG CAP PO SCH (08:10)
[2021-03-15] MEDS: OXYBUTYNIN CHLORIDE 5 MG TAB PO SCH ×4 (08:11→20:47)
[2021-03-15] MEDS: amLODIPine 10 MG TAB PO SCH (08:11)
[2021-03-15] MEDS: CYANOCOBALAMIN 500 MCG TAB PO SCH (08:11)
[2021-03-15] MEDS: MEMANTINE 10 MG TAB PO SCH ×2 (08:11→20:47)
[2021-03-15] MEDS: IPRATROPIUM 0.5 MG/2.5 ML NEBU INHALATION SCH ×4 (08:54→20:04)
[2021-03-15] MEDS: FORMOTEROL FUMARATE 20 MCG/2 ML NEBU INHALATION SCH ×2 (08:54→20:04)
[2021-03-15 11:12] LABS: Basophils # (A) 0.03 X 10*3/uL (0.00-0.10); Basophils % (A) 0.6 %; Eosinophils # (A) 0.24 X 10*3/uL (0.04-0.35); Eosinophils % (A) 4.9 %; HCT 39.9 % (39.6-50.0); HGB 12.3 g/dL (13.0-17.0); Lymphocytes # (A) 0.64 X 10*3/uL (0.90-5.00); MCH 28.1 pg (27.0-32.0); MCHC 30.8 g/dL (32.0-37.0); MCV 91.3 fL (80.0-97.0); Mean Platelet Volume 10.2 fL (9.5-12.2); Monocytes % (A) 10.1 %; Neutrophils # (A) 3.51 X 10*3/uL (1.80-7.70); Platelet Count 155 X 10*3/uL (140-440); RBC 4.37 X 10*6/uL (4.40-5.60); RDW 13.4 % (11.5-14.5); WBC 4.94 X 10*3/uL (4.50-10.00)
[2021-03-15 12:33] LABS: African American GFR (CKD) 102.2 (60.0-200.0); BUN/Creat Ratio 21.43 Ratio (12.00-20.00); Blood Urea Nitrogen 16.5 mg/dL (9.0-27.0); Carbon Dioxide 22.8 mmol/L (20.0-27.5); Chloride 108 mmol/L (96-109); Glucose 101 mg/dL (70-110); Non-African American GFR(CKD) 88.2 (60.0-200.0); Potassium 3.7 mmol/L (3.5-5.5); Sodium 141 mmol/L (135-145)
--- NOTE | 2021-03-15 19:20 | P.PN ---
Subjective Progress Note Date: 03/15/21 Patient is a 75-year-old male with a known history of memory impairment/dementia, asthma, GERD, hypothyroidism, anxiety/depression and previous history of smoking was brought to ER due to altered mental status and episode of hypotension and weakness. Patient is currently at the assisted living facility. Evidently patient was found wandering the hallways. He was also having generalized weakness. Assisted living facility staff directed him to go to his room. Patient was put in a chair and supposedly he was found on the ground. EMS was called. Patient was started on IV fluids and was brought t o ER. Patient was found to be hypotensive on admission. Blood pressure 162/72 pulse is 58 respirations 18 pulse ox 98% on room air. Laboratory showed WBC 7.1 hemoglobin 13.0 platelets 172 lymphocytes 0.5 Sodium 140 potassium 4.0 chloride 110 bicarb is 20 BUN 32 creatinine 1.37 blood sugar is 118 calcium 8.1 Coronavirus PCR not detected. CT head showed atrophy. Right Mass intraconal mass stable from 2019. EKG showed normal sinus rhythm. Patient is a poor historian. 03/15/2021 Patient is seen in follow up this morning and feeling well. Patient was able to work with physical therapy today and will be able to return to his [facility] and will not require MARILEE. Patient kidney functions improved and IV fluids discontinued. Patient blood pressure mildly elevated and will continue with norvasc. Patient reports to eating with no nausea or vomiting noted. Patient is urinating well. Patient was to be discharged and upon leaving started experiencing some dizziness with standing and will keep overnight and observe closely on telemetry. Obtain 2d echo, ecg and basic labs. PHYSICAL EXAMINATION: Patient is lying in the bed comfortably, no acute distress, awake alert. Dementia. more alert and appropriate today HEENT: Normocephalic. Neck is supple. Pupils reactive. Nostrils clear. Oral cavity is moist. Neck reveals no JVD, carotid bruits, or thyromegaly. CHEST EXAMINATION: Trachea is central. Symmetrical expansion. Lung melissa clear to auscultation and percussion. CARDIAC: Normal S1, S2 with no gallops. No murmurs ABDOMEN: Soft. Bowel sounds normal. No organomegaly. No abdominal bruits. Extremities: reveal no edema. No clubbing or cyanosis Neurologically awake, alert, oriented x1-2 with well-coordinated movements. No focal deficits noted Skin: No rash or skin lesions. Psychiatric: cooperative. Musculoskeletal: No joint swelling or deformity. Normal range of motion. Assessment: Altered mental status possible metabolic encephalopathy. Generalized weakness. Memory impairment/dementia Acute kidney injury likely prerenal. Improving dizziness possibly secondary to dehydration and feroz Hypertension Hypothyroidism DVT prophylaxis with heparin subcu Full code Plan: Patient will be continued on IV hydration with normal saline. Will repeat am labs and obtain 2d echo. Patient will continue on telemetry and will repeat ecg. Will have PT/OT reevaluate in the am. Encouraged oral intake and increased activity as tolerated. Monitor renal function blood pressure. Continue with home medications and follow-up closely. Possible discharge in 24 hours to his [facility]. Objective - Vital Signs Vital signs: Vital Signs Temp 97.5 F L 03/15/21 07:00 Pulse 60 03/15/21 09:15 Resp 18 03/15/21 14:00 BP 160/72 03/15/21 16:00 Pulse Ox 97 03/15/21 07:00 Intake & Output 03/15/21 03/15/21 03/16/21 06:59 18:59 06:59 Intake Total 236 Balance 236 Intake: Oral 236 Other: Voiding Method Urinal Urinal # Voids 2 1 - Labs CBC & Chem 7: 03/15/21 06:51 03/15/21 06:51 Labs: Abnormal Lab Results - Last 24 Hours (Table) 03/15/21 03/15/21 Range/Units 06:51 06:51 RBC 4.37 L (4.40-5.60) X 10*6/uL Hgb 12.3 L (13.0-17.0) g/dL MCHC 30.8 L (32.0-37.0) g/dL Lymphocytes # 0.64 L (0.90-5.00) X 10*3/uL BUN/Creatinine Ratio 21.43 H (12.00-20.00) Ratio Calcium 8.0 L (8.7-10.3) mg/dL
[2021-03-15] MEDS: PANTOPRAZOLE 40 MG TABLET PO SCH (20:47)
[2021-03-15] MEDS: DONEPEZIL 10 MG TAB PO SCH (20:48)
[2021-03-16 05:59] LABS: Basophils % (A) 1 %; Eosinophils # (A) 0.3 k/uL (0-0.7); Eosinophils % (A) 6 %; HCT 38.9 % (39.0-53.0); HGB 12.9 gm/dL (13.0-17.5); Lymphocytes # (A) 0.8 k/uL (1.0-4.8); Lymphocytes % (A) 16 %; MCH 30.1 pg (25.0-35.0); MCHC 33.2 g/dL (31.0-37.0); MCV 90.5 fL (80.0-100.0); Mean Platelet Volume 7.4; Monocytes # (A) 0.3 k/uL (0-1.0); Monocytes % (A) 6 %; Neutrophils # (A) 3.3 k/uL (1.3-7.7); Neutrophils % (A) 71 %; Platelet Count 163 k/uL (150-450); RDW 14.2 % (11.5-15.5); WBC 4.7 k/uL (3.8-10.6)
[2021-03-16 06:12] LABS: African American GFR (CKD) >90 (>60 ml/min/1.73 sqM); Anion Gap 7 mmol/L; Blood Urea Nitrogen 17 mg/dL (9-20); Calcium 8.3 mg/dL (8.4-10.2); Carbon Dioxide 26 mmol/L (22-30); Chloride 104 mmol/L (98-107); Glucose 114 mg/dL (74-99); Magnesium 1.7 mg/dL (1.6-2.3); Non-African American GFR(CKD) 83 (>60 ml/min/1.73 sqM); Potassium 3.4 mmol/L (3.5-5.1); Sodium 137 mmol/L (137-145)
[2021-03-16] MEDS: FORMOTEROL FUMARATE 20 MCG/2 ML NEBU INHALATION SCH (07:31)
[2021-03-16] MEDS: IPRATROPIUM 0.5 MG/2.5 ML NEBU INHALATION SCH ×2 (07:31→11:24)
[2021-03-16 08:10] VITALS: BP 135/71; PULSE 84; RESP 16; TEMP 97.4
[2021-03-16] MEDS ORDERED: MAGNESIUM OXIDE 400 MG TAB PO STA (08:23)
[2021-03-16] MEDS ORDERED: POTASSIUM CHLORIDE ER 20 MEQ TAB.ER PO STA (08:23)
[2021-03-16] MEDS: CYANOCOBALAMIN 500 MCG TAB PO SCH (08:50)
[2021-03-16] MEDS: amLODIPine 10 MG TAB PO SCH (08:50)
[2021-03-16] MEDS: MEMANTINE 10 MG TAB PO SCH (08:50)
[2021-03-16] MEDS: VENLAFAXINE HCL ER 75 MG CAP PO SCH (08:51)
[2021-03-16] MEDS: CHOLECALCIFEROL 25 MCG (1000 IU) TABLET PO SCH (08:51)
[2021-03-16] MEDS: OXYBUTYNIN CHLORIDE 5 MG TAB PO SCH ×2 (08:51→12:29)
--- NOTE | 2021-03-16 12:04 | P.CRDCN ---
History of Present Illness History of present illness: HISTORY OF PRESENTING ILLNESS This is a pleasant 75-year-old male past medical history significant for hypertension, asthma, dementia, former smoker. He does not follow with a seaman officer. We were consulted on 03/16/2021 for dizziness and bradycardia. Patient was brought to the emergency department on 03/13/2021 for concerns for altered mental status, hypotension, and generalized weakness. Patient is from an assisted living, he was found wandering the halls, staff directed him to his ro om, patient supposedly was in the chair was supposedly found on the ground. EMS was called. Patient was found to be hypotensive. IV fluids were given. On admission patient and found to have acute kidney injury, due to dehydration, patient was given IV fluids with improvement in kidney function. Patient was supposedly being discharged on 03/15/2021, however, had an episode of dizziness with standing, And patient was kept for observation overnight. Telemetry reviewed, on 03/14/2021 overnight patient did go into sinus rhythm with second degree AV block type 1. No further episodes. On exam, patient is alert, oriented x 1-2. He is pleasant denies dizziness, lightheadedness, chest pain or shortness of breath DIAGNOSTICS EKG reveals sinus rhythm, heart rate 61, right bundle-branch block, left anterior fascicular block, T wave inversion in lead III, ST depression in lead V3, ST flattening in V4. Prior EKG in 2019 with similar findings. Telemetry tracings indicate sinus bradycardia HR 42-50s. Chest xray no acute cardiopulmonary process. Demonstrated scattered parenchymal changes. CT brain revealed atrophy, right intracostal mass, stable from 2019, [place], performed more sensitive evaluation. Laboratory reviewed,WBC 4.7, hemoglobin 12.9, platelets 163, sodium 137, potassium 3.4, BUN 17, serum creatinine 0.8, magnesium 1.7. TSH within normal limits Current home medications include amlodipine 10 mg daily, Aricept, Namenda, melatonin, Monopril, omeprazole, senna, albuterol, Effexor, Asmanex REVIEW OF SYSTEMS At the time of my exam: CONSTITUTIONAL: Denies fever or chills. CARDIOVASCULAR: Denies chest pain, shortness of breath, orthopnea, PND or palpitations. RESPIRATORY: Denies cough. GASTROINTESTINAL: Denies abdominal pain, diarrhea, constipation, nausea or vomiting. MUSCULOSKELETAL: Denies myalgias. NEUROLOGIC: Denies numbness, tingling, headacbe or weakness. ENDOCRINE: Denies fatigue, weight change, polydipsia or polyurina. GENITOURINARY: Denies burning, hematuria or urgency with micturation. HEMATOLOGIC: Denies history of anemia or bleeding. PHYSICAL EXAMINATION Blood pressure 135/71, heart rate 84, afebrile, saturations 92% on room air CONSTITUTIONAL: No apparent distress. HEENT: Head is normocephalic. Pupils are equal, round. Sclerae anicteric. Mucous membranes of the mouth are moist. No JVD. No carotid bruit. CHEST EXAMINATION: Lungs are clear to auscultation. No chest wall tenderness is noted on palpation or with deep breathing. HEART EXAMINATION: Regular rate and rhythm. S1, S2 heard. No murmurs, gallops or rub. ABDOMEN: Soft, nontender. Positive bowel sounds. EXTREMITIES: 2+ peripheral pulses, no lower extremity edema and no calf tenderness. NEUROLOGIC EXAMINATION: Patient is awake, alert and oriented x1-2 ASSESSMENT Altered mental status Acute Kidney Injury, improved with IV fluids Dehydration Second degree AV block type 1 Dizziness, resolved. Dementia Asthma Former Smoker PLAN From a cardiology perspective, patient is stable. No significant pauses or arrhythmia. Patient is not on an AV isa blockers. Ok to continue amlodipine. We will follow the patient as needed. Please re-consult if needed. Nurse Practitioner note has been reviewed, I agree with a documented findings and plan of care. Patient was seen and examined. Past Medical History Past Medical History: Asthma, GERD/Reflux, Memory Impairment, Skin Disorder, Thyroid Disorder Additional Past Medical History / Comment(s): PSORIASIS. PEYRONIES DISORDER, HX Ulcers, History of Any Multi-Drug Resistant Organisms: None Reported Past Surgical History: Orthopedic Surgery Additional Past Surgical History / Comment(s): PENILE CORPRAL BODY PLICATION. HAND SX X2 Past Anesthesia/Blood Transfusion Reactions: No Reported Reaction Past Psychological History: Anxiety, Depression Smoking Status: Former smoker Past Alcohol Use History: None Reported Additional Past Alcohol Use History / Comment(s): smoked [id number] 10 packs/month Past Drug Use History: None Reported - Past Family History Mother Family Medical History: No Reported History Medications and Allergies Home Medications Medication Instructions Recorded Confirmed Type Oxybutynin Chloride 5 mg PO QID 03/15/16 03/13/21 History Cholecalciferol [Vitamin D3 (25 50 mcg PO DAILY 10/27/20 03/13/21 History Mcg = 1000 Iu)] Cyanocobalamin (Vitamin B-12) 1,000 mcg PO DAILY 10/27/20 03/13/21 History [Vitamin B-12] Donepezil [Aricept] 10 mg PO HS 10/27/20 03/13/21 History Melatonin 3 mg PO HS 10/27/20 03/13/21 History Memantine [Namenda] 10 mg PO BID 10/27/20 03/13/21 History Tiotropium Br/Olodaterol HCl 2 puff INHALATION RT-DAILY 10/27/20 03/13/21 History [Stiolto Respimat Inhal [place]] modafiniL [Provigil] 100 mg PO DAILY PRN 10/27/20 03/13/21 History Albuterol Sulfate [Albuterol 2 puff PO RT-BID 03/13/21 03/13/21 History Sulfate Hfa] Mometasone Furoate [Asmanex] 1 puff INHALATION RT-DAILY 03/13/21 03/13/21 History Omeprazole 40 mg PO HS 03/13/21 03/13/21 History Venlafaxine HCl [Effexor XR] 75 mg PO DAILY 03/13/21 03/13/21 History Acetaminophen Tab [Tylenol] 650 mg PO Q6HR PRN tab 03/15/21 Rx Sennosides [Senokot] 8.6 mg PO DAILY PRN #30 tab 03/15/21 Rx amLODIPine [Norvasc] 10 mg PO DAILY 30 Days #30 tab 03/15/21 Rx Allergies Allergy/AdvReac Type Severity Reaction Status Date / Time shellfish derived Allergy Swelling Verified 03/13/21 19:31 Physical Exam Vitals: Vital Signs Temp Pulse Pulse Resp BP Pulse Ox 03/16/21 07:46 68 03/16/21 07:42 66 03/16/21 07:41 66 03/16/21 07:31 66 03/16/21 07:00 97.4 F L 84 16 135/71 92 L 03/16/21 02:00 98.0 F 51 L 17 172/74 97 03/15/21 20:00 49 L 17 03/15/21 19:55 97.6 F 49 L 17 160/71 99 03/15/21 16:00 160/72 03/15/21 14:00 18 Intake and Output 03/15/21 03/16/21 03/16/21 22:59 06:59 14:59 Intake Total 118 120 Output Total 500 Balance 118 -380 Intake: Oral 118 120 Output: Urine 500 Other: # Voids 2 1 Results 03/16/21 05:25 03/16/21 05:25 CBC 03/15/21 03/16/21 Range/Units 06:51 05:25 WBC 4.94 4.7 (4.50-10.00) X 10*3/uL RBC 4.37 L 4.30 (4.40-5.60) X 10*6/uL Hgb 12.3 L 12.9 L (13.0-17.0) g/dL Hct 39.9 38.9 L (39.6-50.0) % Plt Count 155 163 (140-440) X 10*3/uL Comprehensive Metabolic Panel 03/15/21 03/16/21 Range/Units 06:51 05:25 Sodium 141 137 (135-145) mmol/L Potassium 3.7 3.4 L (3.5-5.5) mmol/L Chloride 108 104 (96-109) mmol/L Carbon Dioxide 22.8 26 (20.0-27.5) mmol/L BUN 16.5 17 (9.0-27.0) mg/dL Creatinine 0.8 0.89 (0.6-1.5) mg/dL Glucose 101 114 H (70-110) mg/dL Calcium 8.0 L 8.3 L (8.7-10.3) mg/dL Current Medications Generic Name Dose Route Start Last Admin Trade Name Freq PRN Reason Stop Dose Admin Acetaminophen 650 mg 03/13/21 17:08 Acetaminophen Tab 325 Mg Tab PO Q6HR PRN Mild Pain or Fever > 100.5 Amlodipine Besylate 10 mg 03/15/21 09:00 03/16/21 08:50 Amlodipine 10 Mg Tab PO 10 mg DAILY SHARITA Administration Cholecalciferol 50 mcg 03/14/21 10:45 03/16/21 08:51 Cholecalciferol 25 Mcg (1000 Iu) Tablet PO 50 mcg DAILY SHARITA Administration Cyanocobalamin 1,000 mcg 03/14/21 10:45 03/16/21 08:50 Cyanocobalamin 500 Mcg Tab PO 1,000 mcg DAILY SHARITA Administration Donepezil HCl 10 mg 03/14/21 21:00 03/15/21 20:48 Donepezil 10 Mg Tab PO 10 mg HS SHARITA Administration Formoterol Fumarate 20 mcg 03/15/21 08:00 03/16/21 07:31 Formoterol Fumarate 20 Mcg/2 Ml Nebu INHALATION 20 mcg RT-BID SHARITA Administration Sodium Chloride 1,000 mls @ 100 mls/hr 03/13/21 17:15 03/15/21 21:05 Saline 0.9% IV 100 mls/hr .Q10H SHARITA Administration Ipratropium [place] 0.5 mg 03/15/21 08:00 03/16/21 07:31 Ipratropium 0.5 Mg/2.5 Ml Nebu INHALATION 0.5 mg RT-QID SHARITA Administration Memantine 10 mg 03/14/21 21:00 03/16/21 08:50 Memantine 10 Mg Tab PO 10 mg BID SHARITA Administration Modafinil 100 mg 03/14/21 10:41 Modafinil 100 Mg Tab PO DAILY PRN EXCESSIVE DAYTIME SLEEPINESS Naloxone HCl 0.2 mg 03/13/21 17:08 Naloxone 0.4 Mg/Ml 1 Ml Vial IV Q2M PRN Opioid Reversal Ondansetron HCl 4 mg 03/13/21 17:08 Ondansetron 4 Mg/2 Ml Vial IVP Q8HR PRN Nausea And Vomiting Oxybutynin Chloride 5 mg 03/14/21 13:00 03/16/21 08:51 Oxybutynin Chloride 5 Mg Tab PO 5 mg QID SHARITA Administration Pantoprazole Sodium 40 mg 03/14/21 21:00 03/15/21 20:47 Pantoprazole 40 Mg Tablet PO 40 mg HS SHARITA Administration Senna 8.6 mg 03/14/21 22:34 Sennosides 8.6 Mg Tab PO DAILY PRN Constipation Venlafaxine HCl 75 mg 03/14/21 10:45 03/16/21 08:51 Venlafaxine Hcl Er 75 Mg Cap PO 75 mg DAILY SHARITA Administration Intake and Output 03/15/21 03/16/21 03/16/21 22:59 06:59 14:59 Intake Total 118 120 Output Total 500 Balance 118 -380 Intake: Oral 118 120 Output: Urine 500 Other: # Voids 2 1 03/16/21 05:25 03/16/21 05:25
[2021-03-16] MEDS: SODIUM CHLORIDE 0.9% 1,000 ML IV SCH (12:29)
--- NOTE | 2021-03-16 13:00 | ECHOF ---
Referral Reason:dizziness MEASUREMENTS -------- HEIGHT: 188.0 cm WEIGHT: 76.2 kg BP: 172/74 IVSd: 1.6 cm (0.6 - 1.1) LVIDd: 3.9 cm (3.9 - 5.3) LVPWd: 1.7 cm (0.6 - 1.1) EDV(Teich): 67 ml IVSs: 1.7 cm LVIDs: 2.3 cm LVPWs: 2.1 cm %IVS Thck: 10 % ESV(Teich): 19 ml EF(Teich): 72 % %FS: 40 % SV(Teich): 48 ml RVIDd: 4.4 cm (< 3.3) RA Diam: 5.7 cm LALs A4C: 5.5 cm LAAs A4C: 22.5 cm LAESV A-L A4C: 78 ml LAESV MOD A4C: 74 ml LALs A2C: 5.8 cm LAAs A2C: 20.9 cm LAESV A-L A2C: 64 ml LAESV MOD A2C: 62 ml LAESV(A-L): 72 ml LAESV Index (A-L): 35.85 ml/m Ao Diam: 3.1 cm (2.0 - 3.7) LA Diam: 5.9 cm (2.7 - 3.8) AV Cusp: 2.3 cm (1.5 - 2.6) EPSS: 0.2 cm MV E Daren: 0.73 m/s MV DecT: 297 ms MV Dec [place]: 2.4 m/s MV A Daren: 0.85 m/s MV E/A Ratio: 0.85 MV PHT: 86 ms LVOT Vmax: 1.09 m/s LVOT maxP.79 mmHg AV Vmax: 1.32 m/s AV maxP.95 mmHg TR Vmax: 2.85 m/s TR maxP.41 mmHg RAP: 5.00 mmHg RVSP: 37.41 mmHg MV EF SLOPE: 38.35 mm/s (70 - 150) MV EXCURSION: 15.89 mm (> 18.000) FINDINGS -------- Sinus rhythm. This was a technically adequate study. The left ventricular size is normal. There is moderate concentric left ventricular hypertrophy. O verall left ventricular systolic function is normal with, an EF between 55 - 60 %. The diastolic fi lling pattern is normal for the age of the patient {E/E'}. The right ventricle is moderate to severely enlarged. LA is moderately dilated 34-39 ml/m2 The right atrium is mildly enlarged. Interatrial and interventricular septum intact. There is mild aortic regurgitation. There is no evidence of aortic stenosis. [id number] mitral regurgitation is present. Mild tricuspid regurgitation present. There is mild pulmonary hypertension. The right ventricular systolic pressure, as measured by Doppler, is 37.41mmHg. There is no pulmonic regurgitation present. The aortic root size is normal. IVC Not well visulized. There is a small, generalized pericardial effusion present. CONCLUSIONS -------- 1. The left ventricular size is normal. 2. There is moderate concentric left ventricular hypertrophy. 3. Overall left ventricular systolic function is normal with, an EF between 55 - 60 %. 4. The diastolic filling pattern is normal for the age of the patient {E/E'} 5. The right ventricle is moderate to severely enlarged. 6. LA is moderately dilated 34-39 ml/m2 7. The right atrium is mildly enlarged. 8. There is mild aortic regurgitation. 9. [id number]-[id number] mitral regurgitation is present. 10. Mild tricuspid regurgitation present. 11. There is mild pulmonary hypertension. 12. The right ventricular systolic pressure, as measured by Doppler, is 37.41mmHg. 13. There is a small, generalized pericardial effusion present. [employer]ION PI[employer]URE CRITIC: Nayely Prince RDCS
--- NOTE | 2021-03-16 13:06 | P.DS ---
Providers Date of admission: 03/13/21 17:09 Expected date of discharge: 03/16/21 Attending physician: Skylar Davila Primary care physician: Alec Craig Hospital Course: Final diagnosis Altered mental status possible metabolic encephalopathy, improved Generalized weakness. Memory impairment/dementia Acute kidney injury likely prerenal. Improved dizziness possibly secondary to dehydration and feroz Hypertension Hypothyroidism DVT prophylaxis Full code Discharge disposition Patient is being discharged in a stable condition with guarded prognosis to home patient resides at [facility]. Patient will follow-up with Dr. Craig in the outpatient setting upon discharge. Patient will also need to follow-up with cardiology outpatient in 1-2 weeks. Patient will continue on Norvasc 10 mg daily and close monitoring of blood pressure. Recommend repeat labs in 2-3 days to monitor electrolytes. Total time taken is greater than 35 minutes. Hospital course This is a 75-year-old male who was recently admitted with altered mental status and episode of hypotension and weakness and was brought to the hospital from his [facility] facility after being found wandering the halls and altered. Patient was found to be dehydrated and given IV hydration which showed improvement. Patient was initially scheduled to be discharged and had feelings of dizziness with ambulation in order 2-D echo along with repeat labs and cardiology consult. EKG showed normal sinus rhythm with a right bundle branch block with a left anterior fascicular block bifascicular block which appeared changed from original. Cardiology has evaluated the patient and cleared him for discharge and would like him to follow-up in the outpatient setting with Dr. Inman in the clinic in 2 weeks. Patient also instructed to follow-up with [facility] care provider Dr. Craig upon discharge. Patient has been evaluated by physical therapy and has improved recommending home with home care. Patient does have resources that are provided by [email or web address]] and will continue with those. Patient to continue Norvasc 10 mg daily and recommended to keep a diary of blood pressure readings for primary care follow- up. Patient encouraged to get up slowly and sit for 1-2 minutes prior to getting and standing and monitor for any signs of further dizziness. Patient denies any dizziness and requesting when he can go home today. Encouraged oral intake and patient states he has been eating well. Currently no reports of chest pain, shortness of breath, or palpitations. Patient is afebrile. No reports of nausea or vomiting and patient is tolerating diet. Patient will be discharged to [facility] today. Guarded prognosis. PHYSICAL EXAMINATION: Patient is sitting up at the side of the bed comfortably, no acute distress, awake alert. Dementia. more alert and appropriate today HEENT: Normocephalic. Neck is supple. Pupils reactive. Nostrils clear. Oral cavity is moist. Neck reveals no JVD, carotid bruits, or thyromegaly. CHEST EXAMINATION: Trachea is central. Symmetrical expansion. Lung melissa clear to auscultation and percussion. CARDIAC: Normal S1, S2 with no gallops. No murmurs ABDOMEN: Soft. Bowel sounds normal. No organomegaly. No abdominal bruits. Extremities: reveal no edema. No clubbing or cyanosis Neurologically awake, alert, oriented x2-3 with well-coordinated movements. No focal deficits noted Skin: No rash or skin lesions. Psychiatric: cooperative. Musculoskeletal: No joint swelling or deformity. Normal range of motion. Please refer to medication reconciliation sheet for a list of medications. Patient Condition at Discharge: Fair Plan - Discharge Summary New Discharge Prescriptions: New Acetaminophen Tab [Tylenol] 650 mg PO Q6HR PRN tab PRN Reason: Mild Pain Or Fever > 100.5 amLODIPine [Norvasc] 10 mg PO DAILY 30 Days #30 tab Sennosides [Senokot] 8.6 mg PO DAILY PRN #30 tab PRN Reason: Constipation Continue Oxybutynin Chloride 5 mg PO QID Tiotropium Br/Olodaterol HCl [Stiolto Respimat Inhal [place]] 2 puff INHALATION RT-DAILY Melatonin 3 mg PO HS Donepezil [Aricept] 10 mg PO HS Cyanocobalamin (Vitamin B-12) [Vitamin B-12] 1,000 mcg PO DAILY Albuterol Sulfate [Albuterol Sulfate Hfa] 2 puff PO RT-BID Omeprazole 40 mg PO HS Cholecalciferol [Vitamin D3 (25 Mcg = 1000 Iu)] 50 mcg PO DAILY Memantine [Namenda] 10 mg PO BID modafiniL [Provigil] 100 mg PO DAILY PRN PRN Reason: EXCESSIVE DAYTIME SLEEPINESS Venlafaxine HCl [Effexor XR] 75 mg PO DAILY Mometasone Furoate [Asmanex] 1 puff INHALATION RT-DAILY Discharge Medication List Oxybutynin Chloride 5 mg PO QID 03/15/16 [History] Cholecalciferol [Vitamin D3 (25 Mcg = 1000 Iu)] 50 mcg PO DAILY 10/27/20 [History] Cyanocobalamin (Vitamin B-12) [Vitamin B-12] 1,000 mcg PO DAILY 10/27/20 [History] Donepezil [Aricept] 10 mg PO HS 10/27/20 [History] Melatonin 3 mg PO HS 10/27/20 [History] Memantine [Namenda] 10 mg PO BID 10/27/20 [History] Tiotropium Br/Olodaterol HCl [Stiolto Respimat Inhal [place]] 2 puff INHALATION RT-DAILY 10/27/20 [History] modafiniL [Provigil] 100 mg PO DAILY PRN 10/27/20 [History] Albuterol Sulfate [Albuterol Sulfate Hfa] 2 puff PO RT-BID 03/13/21 [History] Mometasone Furoate [Asmanex] 1 puff INHALATION RT-DAILY 03/13/21 [History] Omeprazole 40 mg PO HS 03/13/21 [History] Venlafaxine HCl [Effexor XR] 75 mg PO DAILY 03/13/21 [History] Acetaminophen Tab [Tylenol] 650 mg PO Q6HR PRN tab 03/15/21 [Rx] Sennosides [Senokot] 8.6 mg PO DAILY PRN #30 tab 03/15/21 [Rx] amLODIPine [Norvasc] 10 mg PO DAILY 30 Days #30 tab 03/15/21 [Rx] Follow up Appointment(s)/Referral(s): Alec Craig MD [Primary Care Provider] - 1-2 days Wagner Inman MD [STAFF PHYSICIAN] - 2 Weeks (financial investment adviser ) Patient Instructions/Handouts: Dehydration (DC), Heart Healthy Diet (DC), Hypertension in the Older Adult (DC) Activity/Diet/Wound Care/Special Instructions: Patient returning to AF Activity as tolerated Continue taking medications as prescribed Follow-up with primary care provider on discharge Monitor blood pressure daily and keep a diary for primary follow-up as patient was started on Norvasc 10 mg daily Continue heart healthy diet *On d/c please call [facility] for wheelchair van . Cost to be billed to hospital. Discharge Disposition: HOME SELF-CARE
== END 2021-03-16 14:07 | disposition home or self-care (01) | DRG 640 ==
LOC: EC 15:14 → 6NMEDSUR 17:09 → OBSVTOIN 03-16 08:50
PROVIDERS: ADMIT Hospitalist; ATTEND Hospitalist
DX: E86.0 Dehydration (principal); G93.41 Metabolic encephalopathy; I45.2 Bifascicular block; N17.9 Acute kidney failure, unspecified; E03.9 Hypothyroidism, unspecified; F03.90 Unspecified dementia, unspecified severity, without behavioral disturbance, psychotic disturbance, mood disturbance, and anxiety; I95.9 Hypotension, unspecified; I10 Essential (primary) hypertension; N48.6 Induration penis plastica; Z20.822 Contact with and (suspected) exposure to COVID-19; R53.1 Weakness; G31.89 Other specified degenerative diseases of nervous system; K21.9 Gastro-esophageal reflux disease without esophagitis; L40.9 Psoriasis, unspecified; I08.3 Combined rheumatic disorders of mitral, aortic and tricuspid valves; I27.20 Pulmonary hypertension, unspecified; F32.A Depression, unspecified; F41.9 Anxiety disorder, unspecified; I44.1 Atrioventricular block, second degree; J45.909 Unspecified asthma, uncomplicated; Z79.899 Other long term (current) drug therapy; Z87.891 Personal history of nicotine dependence; Z91.83 Wandering in diseases classified elsewhere; Z79.890 Hormone replacement therapy; Z91.013 Allergy to seafood; Z87.19 Personal history of other diseases of the digestive system
CPT/HCPCS: 36415; 70450; 71045; 80048; 80053; 83735; 84443; 85025; 87635; 93005; 93306; 94640; 99285

== ENCOUNTER 2021-06-04 21:36 | Observation (INO) | payer MEDICARE, OTHER ==
[2021-06-04] MEDS ORDERED: SODIUM CHLORIDE 0.9% 1,000 ML IV ONE (22:20)
--- NOTE | 2021-06-04 22:20 | ED ---
Altered Mental Status HPI - General Chief Complaint: Altered Mental Status Stated Complaint: AMS Time Seen by Provider: 06/04/21 22:00 Source: patient, EMS, RN notes reviewed (Mayito), old records reviewed Mode of arrival: EMS Limitations: altered mental status - History of Present Illness Initial Comments: This is a 75-year-old male from his apartment. Patient was sent in by staff for not acting himself, not making appropriate same as it just acting a little bit off. Patient does have a mild history of underlying dementia but does live on his own. Patient is unable to provide accurate history states he currently has no complaints no headache chest pain shortness breath or abdominal pain. Patient is without fever. No new medications. Denies drugs or alcohol MD Complaint: altered mental status, confusion, decreased responsiveness -: unknown Severity: mild Consistency of Symptoms: waxing and waning Context: history of similar presentation Associated Symptoms: weakness Treatments Prior to Arrival: IV fluid, oxygen - Related Data Home Medications Medication Instructions Recorded Confirmed Oxybutynin Chloride 5 mg PO QID 03/15/16 03/13/21 Cholecalciferol [Vitamin D3 (25 50 mcg PO DAILY 10/27/20 03/13/21 Mcg = 1000 Iu)] Cyanocobalamin (Vitamin B-12) 1,000 mcg PO DAILY 10/27/20 03/13/21 [Vitamin B-12] Donepezil [Aricept] 10 mg PO HS 10/27/20 03/13/21 Melatonin 3 mg PO HS 10/27/20 03/13/21 Memantine [Namenda] 10 mg PO BID 10/27/20 03/13/21 Tiotropium Br/Olodaterol HCl 2 puff INHALATION RT-DAILY 10/27/20 03/13/21 [Stiolto Respimat Inhal [place]] modafiniL [Provigil] 100 mg PO DAILY PRN 10/27/20 03/13/21 Albuterol Sulfate [Albuterol 2 puff PO RT-BID 03/13/21 03/13/21 Sulfate Hfa] Mometasone Furoate [Asmanex 1 puff INHALATION RT-DAILY 03/13/21 03/13/21 Inhaler] Omeprazole 40 mg PO HS 03/13/21 03/13/21 Venlafaxine HCl [Effexor XR] 75 mg PO DAILY 03/13/21 03/13/21 Previous Rx's Medication Instructions Recorded Acetaminophen Tab [Tylenol] 650 mg PO Q6HR PRN tab 03/15/21 Sennosides [Senokot] 8.6 mg PO DAILY PRN #30 tab 03/15/21 amLODIPine [Norvasc] 10 mg PO DAILY 30 Days #30 tab 03/15/21 Allergies Allergy/AdvReac Type Severity Reaction Status Date / Time shellfish derived Allergy Swelling Verified 03/13/21 19:31 Review of Systems ROS Statement: Those systems with pertinent positive or pertinent negative responses have been documented in the HPI. ROS Other: All systems not noted in ROS Statement are negative. Past Medical History Past Medical History: Asthma, GERD/Reflux, Memory Impairment, Skin Disorder, Thyroid Disorder Additional Past Medical History / Comment(s): PSORIASIS. PEYRONIES DISORDER, HX Ulcers, History of Any Multi-Drug Resistant Organisms: None Reported Past Surgical History: Orthopedic Surgery Additional Past Surgical History / Comment(s): PENILE CORPRAL BODY PLICATION. HAND SX X2 Past Anesthesia/Blood Transfusion Reactions: No Reported Reaction Past Psychological History: ADD/ADHD, Anxiety, Depression Smoking Status: Former smoker Past Alcohol Use History: None Reported Past Drug Use History: None Reported - Past Family History Mother Family Medical History: No Reported History General Exam Limitations: altered mental status General appearance: alert, lethargic Head exam: Present: atraumatic, normocephalic, normal inspection Eye exam: Present: normal appearance, PERRL, EOMI. Absent: scleral icterus, conjunctival injection, periorbital swelling ENT exam: Present: normal exam, mucous membranes moist Neck exam: Present: normal inspection. Absent: tenderness, meningismus, lymphadenopathy Respiratory exam: Present: normal lung sounds bilaterally. Absent: respiratory distress, wheezes, rales, rhonchi, stridor Cardiovascular Exam: Present: regular rate, normal rhythm, normal heart sounds. Absent: systolic murmur, diastolic murmur, rubs, gallop, clicks GI/Abdominal exam: Present: soft, normal bowel sounds. Absent: distended, tenderness, guarding, rebound, rigid Extremities exam: Present: normal inspection, full ROM, normal capillary refill. Absent: tenderness, pedal edema, joint swelling, calf tenderness Back exam: Present: normal inspection Neurological exam: Present: alert, oriented X3, CN II-XII intact Psychiatric exam: Present: normal affect, normal mood Skin exam: Present: warm, dry, intact, normal color. Absent: rash Course Vital Signs 06/04/21 06/04/21 06/04/21 22:00 22:38 22:40 Temperature 98.7 F Pulse Rate 73 Respiratory 18 Rate Blood Pressure 155/79 137/66 137/66 O2 Sat by Pulse 98 99 99 Oximetry 06/04/21 06/04/21 06/04/21 22:50 23:00 23:10 Temperature Pulse Rate Respiratory Rate Blood Pressure 137/66 137/66 150/68 O2 Sat by Pulse 99 99 100 Oximetry 06/04/21 06/04/21 06/04/21 23:20 23:30 23:40 Temperature Pulse Rate Respiratory Rate Blood Pressure 150/68 150/68 149/67 O2 Sat by Pulse 99 Oximetry 06/04/21 06/05/21 06/05/21 23:50 00:00 00:10 Temperature Pulse Rate Respiratory Rate Blood Pressure 149/67 149/67 143/65 O2 Sat by Pulse Oximetry 06/05/21 00:20 Temperature Pulse Rate Respiratory Rate Blood Pressure 143/65 O2 Sat by Pulse Oximetry - Reevaluation(s) Reevaluation #1: 06/05/21 00:42 Medical record is reviewed Reevaluation #2: 06/05/21 00:42 Patient is mental status does appear to be improving here in the ER Reevaluation #3: 06/05/21 00:42 Patient informed results and questions answered - Consultations Consultation #1: Spoke with Dr. Craig who agrees to admit this patient Medical Decision Making - Medical Decision Making 75 male to the emergency department for evaluation. Patient for altered mental status not acting himself patient is dehydrated with urinary tract infection, weakness and acute kidney injury. Patient be admitted for IV antibiotics and resuscitation - Lab Data Result diagrams: 06/04/21 22:38 06/04/21 22:38 Lab Results 06/04/21 06/04/21 06/04/21 Range/Units 22:38 22:38 22:38 WBC 5.4 (3.8-10.6) k/uL RBC 4.48 (4.30-5.90) m/uL Hgb 13.8 (13.0-17.5) gm/dL Hct 43.0 (39.0-53.0) % MCV 96.0 (80.0-100.0) fL MCH 30.9 (25.0-35.0) pg MCHC 32.2 (31.0-37.0) g/dL RDW 14.5 (11.5-15.5) % Plt Count 194 (150-450) k/uL MPV 7.3 Neutrophils % 81 % Lymphocytes % 10 % Monocytes % 6 % Eosinophils % 1 % Basophils % 0 % Neutrophils # 4.4 (1.3-7.7) k/uL Lymphocytes # 0.6 L (1.0-4.8) k/uL Monocytes # 0.3 (0-1.0) k/uL Eosinophils # 0.1 (0-0.7) k/uL Basophils # 0.0 (0-0.2) k/uL PT 10.3 (9.0-12.0) sec INR 0.9 (<1.2) APTT 18.7 L (22.0-30.0) sec Sodium 137 (137-145) mmol/L Potassium 5.1 (3.5-5.1) mmol/L Chloride 110 H (98-107) mmol/L Carbon Dioxide 19 L (22-30) mmol/L Anion Gap 8 mmol/L BUN 44 H (9-20) mg/dL Creatinine 2.01 H (0.66-1.25) mg/dL Est GFR (CKD-EPI)AfAm 36 (>60 ml/min/1.73 sqM) Est GFR (CKD-EPI)NonAf 31 (>60 ml/min/1.73 sqM) Glucose 109 H (74-99) mg/dL POC Glucose (mg/dL) (75-99) mg/dL POC Glu Fibrous Plasterer ID Calcium 8.6 (8.4-10.2) mg/dL Total Bilirubin 0.8 (0.2-1.3) mg/dL AST 21 (17-59) U/L ALT 17 (4-49) U/L Alkaline Phosphatase 94 (38-126) U/L Ammonia (<30) umol/L Troponin I (0.000-0.034) ng/mL Total Protein 6.1 L (6.3-8.2) g/dL Albumin 3.6 (3.5-5.0) g/dL Urine Color Urine Appearance (Clear) Urine pH (5.0-8.0) Ur Specific [place] (1.001-1.035) Urine Protein (Negative) Urine Glucose (UA) (Negative) Urine Ketones (Negative) Urine Blood (Negative) Urine Nitrite (Negative) Urine Bilirubin (Negative) Urine Urobilinogen (<2.0) mg/dL Ur Leukocyte Esterase (Negative) Urine RBC (0-5) /hpf Urine WBC (0-5) /hpf Urine Bacteria (None) /hpf Hyaline Casts (0-2) /lpf Urine Mucus (None) /hpf Urine Opiates Screen (NotDetected) Ur Oxycodone Screen (NotDetected) Urine Methadone Screen (NotDetected) Ur Propoxyphene Screen (NotDetected) Ur Barbiturates Screen (NotDetected) U Tricyclic Antidepress (NotDetected) Ur Phencyclidine Scrn (NotDetected) Ur Amphetamines Screen (NotDetected) U Methamphetamines Scrn (NotDetected) U Benzodiazepines Scrn (NotDetected) Urine Cocaine Screen (NotDetected) U Marijuana (THC) Screen (NotDetected) Serum Alcohol <10 mg/dL 06/04/21 06/04/21 06/04/21 Range/Units 22:38 22:38 23:03 WBC (3.8-10.6) k/uL RBC (4.30-5.90) m/uL Hgb (13.0-17.5) gm/dL Hct (39.0-53.0) % MCV (80.0-100.0) fL MCH (25.0-35.0) pg MCHC (31.0-37.0) g/dL RDW (11.5-15.5) % Plt Count (150-450) k/uL MPV Neutrophils % % Lymphocytes % % Monocytes % % Eosinophils % % Basophils % % Neutrophils # (1.3-7.7) k/uL Lymphocytes # (1.0-4.8) k/uL Monocytes # (0-1.0) k/uL Eosinophils # (0-0.7) k/uL Basophils # (0-0.2) k/uL PT (9.0-12.0) sec INR (<1.2) APTT (22.0-30.0) sec Sodium (137-145) mmol/L Potassium (3.5-5.1) mmol/L Chloride (98-107) mmol/L Carbon Dioxide (22-30) mmol/L Anion Gap mmol/L BUN (9-20) mg/dL Creatinine (0.66-1.25) mg/dL Est GFR (CKD-EPI)AfAm (>60 ml/min/1.73 sqM) Est GFR (CKD-EPI)NonAf (>60 ml/min/1.73 sqM) Glucose (74-99) mg/dL POC Glucose (mg/dL) 95 (75-99) mg/dL POC Glu Fibrous Plasterer ID Michell Esparza Calcium (8.4-10.2) mg/dL Total Bilirubin (0.2-1.3) mg/dL AST (17-59) U/L ALT (4-49) U/L Alkaline Phosphatase (38-126) U/L Ammonia <9 (<30) umol/L Troponin I <0.012 (0.000-0.034) ng/mL Total Protein (6.3-8.2) g/dL Albumin (3.5-5.0) g/dL Urine Color Urine Appearance (Clear) Urine pH (5.0-8.0) Ur Specific [place] (1.001-1.035) Urine Protein (Negative) Urine Glucose (UA) (Negative) Urine Ketones (Negative) Urine Blood (Negative) Urine Nitrite (Negative) Urine Bilirubin (Negative) Urine Urobilinogen (<2.0) mg/dL Ur Leukocyte Esterase (Negative) Urine RBC (0-5) /hpf Urine WBC (0-5) /hpf Urine Bacteria (None) /hpf Hyaline Casts (0-2) /lpf Urine Mucus (None) /hpf Urine Opiates Screen (NotDetected) Ur Oxycodone Screen (NotDetected) Urine Methadone Screen (NotDetected) Ur Propoxyphene Screen (NotDetected) Ur Barbiturates Screen (NotDetected) U Tricyclic Antidepress (NotDetected) Ur Phencyclidine Scrn (NotDetected) Ur Amphetamines Screen (NotDetected) U Methamphetamines Scrn (NotDetected) U Benzodiazepines Scrn (NotDetected) Urine Cocaine Screen (NotDetected) U Marijuana (THC) Screen (NotDetected) Serum Alcohol mg/dL 06/04/21 Range/Units 23:52 WBC (3.8-10.6) k/uL RBC (4.30-5.90) m/uL Hgb (13.0-17.5) gm/dL Hct (39.0-53.0) % MCV (80.0-100.0) fL MCH (25.0-35.0) pg MCHC (31.0-37.0) g/dL RDW (11.5-15.5) % Plt Count (150-450) k/uL MPV Neutrophils % % Lymphocytes % % Monocytes % % Eosinophils % % Basophils % % Neutrophils # (1.3-7.7) k/uL Lymphocytes # (1.0-4.8) k/uL Monocytes # (0-1.0) k/uL Eosinophils # (0-0.7) k/uL Basophils # (0-0.2) k/uL PT (9.0-12.0) sec INR (<1.2) APTT (22.0-30.0) sec Sodium (137-145) mmol/L Potassium (3.5-5.1) mmol/L Chloride (98-107) mmol/L Carbon Dioxide (22-30) mmol/L Anion Gap mmol/L BUN (9-20) mg/dL Creatinine (0.66-1.25) mg/dL Est GFR (CKD-EPI)AfAm (>60 ml/min/1.73 sqM) Est GFR (CKD-EPI)NonAf (>60 ml/min/1.73 sqM) Glucose (74-99) mg/dL POC Glucose (mg/dL) (75-99) mg/dL POC Glu Fibrous Plasterer ID Calcium (8.4-10.2) mg/dL Total Bilirubin (0.2-1.3) mg/dL AST (17-59) U/L ALT (4-49) U/L Alkaline Phosphatase (38-126) U/L Ammonia (<30) umol/L Troponin I (0.000-0.034) ng/mL Total Protein (6.3-8.2) g/dL Albumin (3.5-5.0) g/dL Urine Color Light Red Urine Appearance Cloudy (Clear) Urine pH 6.0 (5.0-8.0) Ur Specific [place] 1.021 (1.001-1.035) Urine Protein 2+ H (Negative) Urine Glucose (UA) Negative (Negative) Urine Ketones Negative (Negative) Urine Blood Large H (Negative) Urine Nitrite Negative (Negative) Urine Bilirubin Negative (Negative) Urine Urobilinogen <2.0 (<2.0) mg/dL Ur Leukocyte Esterase Large H (Negative) Urine RBC >182 H (0-5) /hpf Urine WBC >182 H (0-5) /hpf Urine Bacteria Rare H (None) /hpf Hyaline Casts 10 H (0-2) /lpf Urine Mucus Moderate H (None) /hpf Urine Opiates Screen Not Detected (NotDetected) Ur Oxycodone Screen Not Detected (NotDetected) Urine Methadone Screen Not Detected (NotDetected) Ur Propoxyphene Screen Not Detected (NotDetected) Ur Barbiturates Screen Not Detected (NotDetected) U Tricyclic Antidepress Not Detected (NotDetected) Ur Phencyclidine Scrn Not Detected (NotDetected) Ur Amphetamines Screen Not Detected (NotDetected) U Methamphetamines Scrn Not Detected (NotDetected) U Benzodiazepines Scrn Detected H (NotDetected) Urine Cocaine Screen Not Detected (NotDetected) U Marijuana (THC) Screen Not Detected (NotDetected) Serum Alcohol mg/dL - EKG Data -: EKG Interpreted by Me (EKG shows sinus a rate of 62 MT 223 QRS 143 QTc 451) Disposition Clinical Impression: Altered mental status, Weakness, Dehydration, Dizziness, EBONY (acute kidney injury) Disposition: ADMITTED IP TO THIS [facility] Condition: Fair Is patient prescribed a controlled substance at d/c from ED?: No Referrals: Alec Craig MD [Primary Care Provider] - 1-2 days
[2021-06-04 22:59] LABS: Basophils % (A) 0 %; Eosinophils # (A) 0.1 k/uL (0-0.7); Eosinophils % (A) 1 %; HGB 13.8 gm/dL (13.0-17.5); Lymphocytes # (A) 0.6 k/uL (1.0-4.8); Lymphocytes % (A) 10 %; MCH 30.9 pg (25.0-35.0); MCHC 32.2 g/dL (31.0-37.0); Mean Platelet Volume 7.3; Monocytes # (A) 0.3 k/uL (0-1.0); Monocytes % (A) 6 %; Neutrophils # (A) 4.4 k/uL (1.3-7.7); Neutrophils % (A) 81 %; Platelet Count 194 k/uL (150-450); RBC 4.48 m/uL (4.30-5.90); RDW 14.5 % (11.5-15.5); WBC 5.4 k/uL (3.8-10.6)
[2021-06-04 23:03] LABS: ALT 17 U/L (4-49); AST 21 U/L (17-59); African American GFR (CKD) 36 (>60 ml/min/1.73 sqM); Albumin 3.6 g/dL (3.5-5.0); Alcohol <10 mg/dL; Alkaline Phosphatase 94 U/L (38-126); Anion Gap 8 mmol/L; Blood Urea Nitrogen 44 mg/dL (9-20); Calcium 8.6 mg/dL (8.4-10.2); Carbon Dioxide 19 mmol/L (22-30); Chloride 110 mmol/L (98-107); Glucose 109 mg/dL (74-99); Non-African American GFR(CKD) 31 (>60 ml/min/1.73 sqM); Potassium 5.1 mmol/L (3.5-5.1); Sodium 137 mmol/L (137-145); Total Bilirubin 0.8 mg/dL (0.2-1.3); Total Protein 6.1 g/dL (6.3-8.2)
[2021-06-04 23:04] LABS: Glucose,Whole Blood 95 mg/dL (75-99)
[2021-06-04 23:16] LABS: INR 0.9 (<1.2); Prothrombin Time 10.3 sec (9.0-12.0)
[2021-06-04 23:23] LABS: Partial Thromboplastin Time 18.7 sec (22.0-30.0)
[2021-06-05 00:33] LABS: Appearance,Urine Cloudy (Clear); Bacteria,Urine Rare /hpf; Bilirubin,Urine Negative (Negative); Blood,Urine Large (Negative); Color,Urine Light Red; Glucose,Urine (UA) Negative (Negative); Hyaline Casts,Urine 10 /lpf (0-2); Ketones,Urine Negative (Negative); Leukocyte Esterase,Urine Large (Negative); Mucus,Urine Moderate /hpf; Nitrite,Urine Negative (Negative); Protein,Urine 2+ (Negative); RBC,Urine >182 /hpf (0-5); Specific Gravity,Urine 1.021 (1.001-1.035); Urobilinogen,Urine <2.0 mg/dL (<2.0); WBC,Urine >182 /hpf (0-5)
[2021-06-05 00:36] LABS: Amphetamine Screen,Urine Not Detected (NotDetected); Barbiturate Screen,Urine Not Detected (NotDetected); Benzodiazepines Screen,Urine Detected (NotDetected); Cocaine Screen,Urine Not Detected (NotDetected); Methadone Screen, Urine Not Detected (NotDetected); Opiate Screen,Urine Not Detected (NotDetected); Oxycodone Screen, Urine Not Detected (NotDetected); Phencyclidine Screen,Urine Not Detected (NotDetected); Tricyclic Antidepressant,Urine Not Detected (NotDetected); Urn Cannabinoid Scrn Not Detected (NotDetected)
[2021-06-05] MEDS ORDERED: SODIUM CHLORIDE 0.9% 1,000 ML IV STA ×2 (00:37)
[2021-06-05] MEDS ORDERED: MORPHINE SULFATE 4 MG/ML SYRINGE IV PRN (00:38)
[2021-06-05] MEDS ORDERED: NALOXONE 0.4 MG/ML 1 ML VIAL IV PRN (00:38)
[2021-06-05] MEDS ORDERED: LORazepam 2 MG/ML INJ IV PRN (00:38)
[2021-06-05] MEDS: SODIUM CHLORIDE 0.9% 1,000 ML IV SCH ×3 (03:56→11:19)
[2021-06-05 09:39] LABS: HCT 37.5 % (39.0-53.0); MCH 31.4 pg (25.0-35.0); Mean Platelet Volume 7.5; Platelet Count 127 k/uL (150-450); RBC 3.83 m/uL (4.30-5.90); RDW 13.8 % (11.5-15.5)
[2021-06-05 09:49] LABS: ALT 13 U/L (4-49); AST 18 U/L (17-59); African American GFR (CKD) 65 (>60 ml/min/1.73 sqM); Albumin 2.6 g/dL (3.5-5.0); Albumin/Globulin Ratio 1.2; Alkaline Phosphatase 74 U/L (38-126); Anion Gap 3 mmol/L; Blood Urea Nitrogen 32 mg/dL (9-20); Calcium 7.6 mg/dL (8.4-10.2); Carbon Dioxide 19 mmol/L (22-30); Chloride 115 mmol/L (98-107); Globulin 2.2 g/dL; Glucose 87 mg/dL (74-99); Non-African American GFR(CKD) 57 (>60 ml/min/1.73 sqM); Potassium 4.3 mmol/L (3.5-5.1); Sodium 137 mmol/L (137-145); Total Bilirubin 0.7 mg/dL (0.2-1.3); Total Protein 4.8 g/dL (6.3-8.2)
[2021-06-05] MEDS: PANTOPRAZOLE 40 MG/10 ML VIAL IV SCH (10:15)
[2021-06-05] MEDS ORDERED: ALBUTEROL NEBULIZED 2.5 MG/3 ML INHALATION PRN (10:38)
[2021-06-05] MEDS: VENLAFAXINE HCL ER 75 MG CAP PO SCH (11:18)
[2021-06-05] MEDS: MEMANTINE 10 MG TAB PO SCH ×2 (11:18→21:55)
[2021-06-05] MEDS: busPIRone HCl 10 MG TAB PO SCH ×2 (11:18→21:55)
[2021-06-05] MEDS: CHOLECALCIFEROL 25 MCG (1000 IU) TABLET PO SCH (11:25)
[2021-06-05] MEDS: LORazepam 0.5 MG TAB PO PRN (11:25)
[2021-06-05] MEDS: amLODIPine 10 MG TAB PO SCH (11:26)
[2021-06-05] MEDS: CYANOCOBALAMIN 500 MCG TAB PO SCH (11:26)
--- NOTE | 2021-06-05 14:25 | P.HPIM ---
History of Present Illness H&P Date: 06/05/21 Chief Complaint: altered mental status Patient is a pleasantly confused 75-year-old male, that was sent to the emergency room for altered mental status. Patient reports trying to leave apartment facility to go to the store and got into an argument with the security solutions engineer. security guards dispatcher called 911 for altered mental status. Patient has a pertinent medical history of dementia, memory impairment, asthma, hypertension, hypothyroidism, obstructive sleep apnea, iron deficiency anemia, BPH, anxiety, depression and ADD. Workup in the emergency room found urinary tract infection, and dehydration with acute kidney injury. EKG showed sinus rhythm with first- degree AV block. Patient did test positive for benzodiazepine on drug screen, patient has not been prescribed Ativan in 2 years. Patient reports having a few pills left that he took prior to admission. 06/05/2021 Patient was seen and examined at bedside. Patient was agitated and anxious about missing clothing items. Alert and orientedx3, but easily confused. Patient denies chest pain, shortness of breath, headache, fever, chills. Patient denies pain with urination. Urinary output has increased overnight. BUN improved from 44-32, creatinine improved from 2.0-1.24. IV fluids were decreased to 75 mLs an hour, continue treatment with IV Rocephin until urine culture results. Patient had reported to nurse that he is requiring more assistance at home and may need to go to an assisted living. Social work and physical therapy consulted. Review of Systems Constitutional: Denies chills, Denies fever Ears, nose, mouth and throat: Denies hoarseness, Denies sore throat, Denies vertigo Cardiovascular: Denies chest pain, Denies palpitations, Denies shortness of breath, Denies syncope Respiratory: Denies cough, Denies dyspnea Gastrointestinal: Denies abdominal pain, Denies nausea, Denies vomiting Genitourinary: Denies flank pain, Denies urinary retention Musculoskeletal: Denies frequent falls, Denies muscle weakness Integumentary: Denies change in hair/nails, Denies wounds Neurological: Denies headaches, Denies syncope, Denies weakness Psychiatric: Reports anxiety, Reports confusion Endocrine: Denies fatigue, Denies weight change Hematologic/Lymphatic: Denies easy bleeding Allergic/Immunologic: Denies anaphylaxis, Denies wheezing Past Medical History Past Medical History: Asthma, Dementia, GERD/Reflux, Hypertension, Memory Impairment, Prostate Disorder, Skin Disorder, Sleep Apnea/CPAP/BIPAP, Thyroid Disorder Additional Past Medical History / Comment(s): Pt states he has had a recent UTI treated with antibiotic, PUD, hiatal hernia, benign colon polyps, constipation, BPH, vertigo, peyronies disorder, iron anemia, GILBERTO without device, hypothyroid, acute kidney injury, psoriaisis. History of Any Multi-Drug Resistant Organisms: None Reported Past Surgical History: Orthopedic Surgery Additional Past Surgical History / Comment(s): Penile implant, EGD, colonoscopy, L hand surgery d/t injury, R hand trigger finger release. Past Anesthesia/Blood Transfusion Reactions: No Reported Reaction Smoking Status: Former smoker - Past Family History Mother Family Medical History: No Reported History Additional Family Medical History / Comment(s): Mother lived to be 94 yrs old. Father Family Medical History: No Reported History Additional Family Medical History / Comment(s): Father lived to be 97 yrs old. Medications and Allergies Home Medications Medication Instructions Recorded Confirmed Type Oxybutynin Chloride 5 mg PO QID 03/15/16 06/05/21 History Cholecalciferol [Vitamin D3 (25 50 mcg PO DAILY 10/27/20 06/05/21 History Mcg = 1000 Iu)] Cyanocobalamin (Vitamin B-12) 1,000 mcg PO DAILY 10/27/20 06/05/21 History [Vitamin B-12] Donepezil [Aricept] 10 mg PO HS 10/27/20 06/05/21 History Melatonin 3 mg PO HS 10/27/20 06/05/21 History Memantine [Namenda] 10 mg PO BID 10/27/20 06/05/21 History Tiotropium Br/Olodaterol HCl 2 puff INHALATION RT-DAILY 10/27/20 06/05/21 History [Stiolto Respimat Inhal [place]] modafiniL [Provigil] 100 mg PO DAILY 10/27/20 06/05/21 History Albuterol Sulfate [Albuterol 2 puff PO RT-BID 03/13/21 06/05/21 History Sulfate Hfa] Mometasone Furoate [Asmanex 1 puff INHALATION RT-DAILY 03/13/21 06/05/21 History Inhaler] Omeprazole 40 mg PO HS 03/13/21 06/05/21 History Venlafaxine HCl [Effexor XR] 75 mg PO DAILY 03/13/21 06/05/21 History amLODIPine [Norvasc] 10 mg PO DAILY 30 Days #30 tab 03/15/21 06/05/21 Rx Sennosides [Senokot] 8.6 mg PO HS 06/05/21 06/05/21 History Sulfamethox-Tmp 800-160Mg [Bactrim 1 tab PO Q12HR 06/05/21 06/05/21 History DS 800-160 mg] Triamcinolone 0.1% Cream [Kenalog 1 applic TOPICAL BID PRN 06/05/21 06/05/21 History 0.1% Cream] busPIRone HCl [Buspar] 10 mg PO BID 06/05/21 06/05/21 History Allergies Allergy/AdvReac Type Severity Reaction Status Date / Time shellfish derived Allergy Swelling Verified 06/05/21 08:32 Physical Exam Vitals: Vital Signs Temp Pulse Pulse Resp BP BP Pulse Ox 06/05/21 07:00 97.3 F L 50 L 18 135/62 98 06/05/21 02:00 97.7 F 48 L 16 161/76 99 06/05/21 00:20 143/65 06/05/21 00:10 143/65 06/05/21 00:00 149/67 06/04/21 23:50 149/67 06/04/21 23:40 149/67 06/04/21 23:30 150/68 06/04/21 23:20 150/68 99 06/04/21 23:10 150/68 100 06/04/21 23:00 137/66 99 06/04/21 22:50 137/66 99 06/04/21 22:40 137/66 99 06/04/21 22:38 137/66 99 06/04/21 22:00 98.7 F 73 18 155/79 98 Intake and Output 06/04/21 06/05/21 06/05/21 22:59 06:59 14:59 Intake Total 1040 Balance 1040 Intake: Intake, IV Titration 1040 Amount Sodium Chloride 0.9% 1, 1040 000 ml @ 130 mls/hr IV . Q7H42M [facility] Rx#:[id number] Other: # Voids 1 Weight 79.379 kg 79.379 kg - Constitutional General appearance: average body habitus, disheveled, no acute distress - EENT Eyes: EOMI, PERRLA ENT: normal oropharynx Ears: bilateral: normal - Neck Neck: normal ROM Carotids: bilateral: upstroke normal - Respiratory Respiratory: bilateral: diminished - Cardiovascular Heart rate: 70 Rhythm: regular Heart sounds: normal: S1, S2 radial pulse Peripheral Pulses: bilateral: Normal - Gastrointestinal General gastrointestinal: normal bowel sounds, soft - Integumentary Integumentary: normal - Neurologic History of dementia, poor historian Neurologic: focal deficits - Musculoskeletal Musculoskeletal: gait normal - Psychiatric Anxious, agitated with missing clothes, confused at times Results CBC & Chem 7: 06/05/21 09:09 06/05/21 09:09 Labs: Abnormal Lab Results - Last 24 Hours (Table) 06/04/21 06/04/21 06/04/21 Range/Units 22:38 22:38 22:38 RBC (4.30-5.90) m/uL Hgb (13.0-17.5) gm/dL Hct (39.0-53.0) % Plt Count (150-450) k/uL Lymphocytes # 0.6 L (1.0-4.8) k/uL APTT 18.7 L (22.0-30.0) sec Chloride 110 H (98-107) mmol/L Carbon Dioxide 19 L (22-30) mmol/L BUN 44 H (9-20) mg/dL Creatinine 2.01 H (0.66-1.25) mg/dL Glucose 109 H (74-99) mg/dL Calcium (8.4-10.2) mg/dL Total Protein 6.1 L (6.3-8.2) g/dL Albumin (3.5-5.0) g/dL Urine Protein (Negative) Urine Blood (Negative) Ur Leukocyte Esterase (Negative) Urine RBC (0-5) /hpf Urine WBC (0-5) /hpf Urine Bacteria (None) /hpf Hyaline Casts (0-2) /lpf Urine Mucus (None) /hpf U Benzodiazepines Scrn (NotDetected) 06/04/21 06/05/21 06/05/21 Range/Units 23:52 09:09 09:09 RBC 3.83 L (4.30-5.90) m/uL Hgb 12.0 L (13.0-17.5) gm/dL Hct 37.5 L (39.0-53.0) % Plt Count 127 L (150-450) k/uL Lymphocytes # (1.0-4.8) k/uL APTT (22.0-30.0) sec Chloride 115 H (98-107) mmol/L Carbon Dioxide 19 L (22-30) mmol/L BUN 32 H (9-20) mg/dL Creatinine (0.66-1.25) mg/dL Glucose (74-99) mg/dL Calcium 7.6 L (8.4-10.2) mg/dL Total Protein 4.8 L (6.3-8.2) g/dL Albumin 2.6 L (3.5-5.0) g/dL Urine Protein 2+ H (Negative) Urine Blood Large H (Negative) Ur Leukocyte Esterase Large H (Negative) Urine RBC >182 H (0-5) /hpf Urine WBC >182 H (0-5) /hpf Urine Bacteria Rare H (None) /hpf Hyaline Casts 10 H (0-2) /lpf Urine Mucus Moderate H (None) /hpf U Benzodiazepines Scrn Detected H (NotDetected) Microbiology - Last 24 Hours (Table) 06/04/21 23:52 Urine Culture - Preliminary Urine,Voided Thrombosis Risk Factor Assmnt - DVT/VTE Prophylaxis DVT/VTE Prophylaxis: Pharmacologic Prophylaxis ordered - Choose All That Apply Any of the Below Risk Factors Present?: No Other Risk Factors: Yes Each Risk Factor Represents 3 Points: Age 75 years or older Other congenital or acquired thrombophilia - If yes, enter type in comment: No Thrombosis Risk Factor Assessment Total Risk Factor Score: 3 Thrombosis Risk Factor Assessment Level: Moderate Risk Assessment and Plan Assessment: Altered mental status Urinary tract infection, culture pending Acute kidney injury secondary to dehydration Acute anxiety Increasing weakness at home Poor short-term memory secondary to dementia Hypertension GERD Mild intermittent asthma full code Plan: Continue IV hydration, kidney function has improved, repeat in the morning Continue IV Rocephin for antibiotic treatment of urinary tract infection, awaiting culture results Patient's mental status has returned closer to normal, continue to monitor mentation Social work and physical therapy consulted to assess patient's need for placement Heparin subcu for DVT prophylaxis Further recommendations to come based on patient's clinical course Time with Patient: Greater than 30
[2021-06-05] MEDS ORDERED: ACETAMINOPHEN TAB 325 MG TAB PO PRN (14:27)
[2021-06-05] MEDS: modafiniL 100 MG TAB PO SCH (16:30)
[2021-06-05] MEDS: IPRATROPIUM 0.5 MG/2.5 ML NEBU INHALATION SCH ×3 (16:41→20:52)
[2021-06-05] MEDS: FORMOTEROL FUMARATE 20 MCG/2 ML NEBU INHALATION SCH ×2 (16:43→20:51)
[2021-06-05] MEDS ORDERED: ALBUTEROL NEBULIZED 2.5 MG/3 ML INHALATION SCH (20:00)
[2021-06-05] MEDS: DONEPEZIL 10 MG TAB PO SCH (21:55)
[2021-06-05] MEDS: SENNOSIDES 8.6 MG TAB PO SCH (21:55)
[2021-06-05] MEDS: MELATONIN 3 MG TABLET PO SCH (21:55)
[2021-06-05] MEDS: HEPARIN SODIUM,PORCINE/PF 5,000 UNIT/0.5 ML SYRINGE SQ SCH (21:55)
[2021-06-06] MEDS: SODIUM CHLORIDE 0.9% 1,000 ML IV SCH ×2 (01:05→16:03)
[2021-06-06] MEDS: FORMOTEROL FUMARATE 20 MCG/2 ML NEBU INHALATION SCH ×2 (08:41→19:38)
[2021-06-06] MEDS: IPRATROPIUM 0.5 MG/2.5 ML NEBU INHALATION SCH ×4 (08:41→19:38)
[2021-06-06] MEDS: FLUTICASONE 110 MCG INHALER INHALATION SCH ×2 (08:44→19:38)
[2021-06-06 09:46] LABS: Basophils # (A) 0.02 X 10*3/uL (0.00-0.10); Basophils % (A) 0.5 %; Eosinophils % (A) 2.3 %; HGB 11.5 g/dL (13.0-17.0); Immature Grans, Automated 0.2 %; Lymphocytes # (A) 0.92 X 10*3/uL (0.90-5.00); Lymphocytes % (A) 20.8 %; MCH 29.8 pg (27.0-32.0); MCHC 31.9 g/dL (32.0-37.0); MCV 93.3 fL (80.0-97.0); Mean Platelet Volume 9.7 fL (9.5-12.2); Monocytes # (A) 0.37 X 10*3/uL (0.20-1.00); Monocytes % (A) 8.4 %; NRBC Per 100 WBC 0 /100 WBCS (0.0-0.0); Neutrophils # (A) 3.01 X 10*3/uL (1.80-7.70); Neutrophils % (A) 67.8 %; Platelet Count 158 X 10*3/uL (140-440); RBC 3.86 X 10*6/uL (4.40-5.60); RDW 13.8 % (11.5-14.5); WBC 4.43 X 10*3/uL (4.50-10.00)
[2021-06-06 09:58] LABS: African American GFR (CKD) 84.4 (60.0-200.0); Anion Gap 9.2 mmol/L (10.00-18.00); BUN/Creat Ratio 21.8 Ratio (12.00-20.00); Blood Urea Nitrogen 21.8 mg/dL (9.0-27.0); Calcium 8.1 mg/dL (8.7-10.3); Carbon Dioxide 20.8 mmol/L (20.0-27.5); Globulin 1.5 g/dL (1.6-3.3); Non-African American GFR(CKD) 72.8 (60.0-200.0); Potassium 4.3 mmol/L (3.5-5.5); Total Bilirubin 0.3 mg/dL (0.30-1.20); Total Protein 4.5 g/dL (6.2-8.2)
[2021-06-06] MEDS: LORazepam 0.5 MG TAB PO PRN ×2 (10:24→22:00)
[2021-06-06] MEDS: MEMANTINE 10 MG TAB PO SCH ×2 (10:25→21:59)
[2021-06-06] MEDS: CYANOCOBALAMIN 500 MCG TAB PO SCH (10:25)
[2021-06-06] MEDS: busPIRone HCl 10 MG TAB PO SCH ×2 (10:25→22:00)
[2021-06-06] MEDS: VENLAFAXINE HCL ER 75 MG CAP PO SCH (10:26)
[2021-06-06] MEDS: CHOLECALCIFEROL 25 MCG (1000 IU) TABLET PO SCH (10:26)
[2021-06-06] MEDS: amLODIPine 10 MG TAB PO SCH (10:26)
[2021-06-06] MEDS: PANTOPRAZOLE 40 MG/10 ML VIAL IV SCH (10:27)
[2021-06-06] MEDS: HEPARIN SODIUM,PORCINE/PF 5,000 UNIT/0.5 ML SYRINGE SQ SCH ×2 (10:27→22:00)
[2021-06-06] MEDS: modafiniL 100 MG TAB PO SCH (11:43)
--- NOTE | 2021-06-06 15:26 | P.PN ---
Subjective Patient is admitted for altered mental status, toxic encephalopathy secondary believed to be secondary to urinary tract Infection patient also had acute renal failure. Azotemia from sepsis secondary to intravascular depletion both of which improved patient is awaiting urine cultures and sensitivity results and the awaiting physical gentleman occupational therapy evaluation patient present creatinine is around 1. Receiving 75 mL of normal saline at this time. REVIEW OF SYSTEMS: CONSTITUTIONAL: No fever, no malaise, no fatigue. HEENT: No recent visual problems or hearing problems. Denied any sore throat. CARDIOVASCULAR: No chest pain, orthopnea, PND, no palpitations, no syncope. PULMONARY: No shortness of breath, no cough, no hemoptysis. GASTROINTESTINAL: No diarrhea, no nausea, no vomiting, no abdominal pain. NEUROLOGICAL: No headaches, no weakness, no numbness. HEMATOLOGICAL: Denies any bleeding or petechiae. GENITOURINARY: Denies any burning micturition, frequency, or urgency. MUSCULOSKELETAL/RHEUMATOLOGICAL: Denies any joint pain, swelling, or any muscle pain. ENDOCRINE: Denies any polyuria or polydipsia. The rest of the 14-point review of systems is negative. PHYSICAL EXAMINATION: GENERAL: The patient is alert and oriented x3, not in any acute distress. Well developed, well nourished. HEENT: Pupils are round and equally reacting to light. EOMI. No scleral icterus. No conjunctival pallor. Normocephalic, atraumatic. No pharyngeal erythema. No thyromegaly. CARDIOVASCULAR: S1 and S2 present. No murmurs, rubs, or gallops. PULMONARY: Chest is clear to auscultation, no wheezing or crackles. ABDOMEN: Soft, nontender, nondistended, normoactive bowel sounds. No palpable organomegaly. MUSCULOSKELETAL: No joint swelling or deformity. EXTREMITIES: No cyanosis, clubbing, or pedal edema. NEUROLOGICAL: Gross neurological examination did not reveal any focal deficits. SKIN: No rashes. Assessment and plan -Altered mental status: Seconded toxic applied encephalopathy patient may have metabolic encephalopathy from acute renal failure as. -Acute renal failure prerenal azotemia from sepsis and intravascular volume depletion which improved at this time we'll leave him on surfaces of normal saline today patient possibly can be discharged tomorrow Urinary tract infection for which Rocephin is being continued and still pending Hypertension -Gastroesophageal reflux disease -Mild intermittent asthma without any acute exacerbation DVT prophylaxis: Subcutaneous heparin Objective - Vital Signs Vital signs: Vital Signs Temp 98.0 F 06/06/21 14:46 Pulse 52 L 06/06/21 14:46 Resp 18 06/06/21 14:46 BP 110/61 06/06/21 14:46 Pulse Ox 97 06/06/21 14:46 Intake & Output 06/05/21 06/06/21 06/06/21 18:59 06:59 18:59 Intake Total 118 780 Balance 118 780 Weight 79.379 kg Intake: Oral 118 780 Other: # Voids 1 2 - Labs CBC & Chem 7: 06/06/21 06:15 06/06/21 06:15 Labs: Abnormal Lab Results - Last 24 Hours (Table) 06/06/21 06/06/21 Range/Units 06:15 06:15 WBC 4.43 L (4.50-10.00) X 10*3/uL RBC 3.86 L (4.40-5.60) X 10*6/uL Hgb 11.5 L (13.0-17.0) g/dL Hct 36.0 L (39.6-50.0) % MCHC 31.9 L (32.0-37.0) g/dL Chloride 110 H (96-109) mmol/L Anion Gap 9.20 L (10.00-18.00) mmol/L BUN/Creatinine Ratio 21.80 H (12.00-20.00) Ratio Calcium 8.1 L (8.7-10.3) mg/dL AST 13 L (14-35) U/L Total Protein 4.5 L (6.2-8.2) g/dL Albumin 3.0 L (3.8-4.9) g/dL Globulin 1.5 L (1.6-3.3) g/dL Microbiology - Last 24 Hours (Table) 06/04/21 23:52 Urine Culture - Final Urine,Voided
[2021-06-06] MEDS: SENNOSIDES 8.6 MG TAB PO SCH (22:00)
[2021-06-06] MEDS: DONEPEZIL 10 MG TAB PO SCH (22:00)
[2021-06-06] MEDS: MELATONIN 3 MG TABLET PO SCH (22:00)
[2021-06-07] MEDS: SODIUM CHLORIDE 0.9% 1,000 ML IV SCH (04:33)
[2021-06-07 07:06] VITALS: BP 157/68; PULSE 49; RESP 12; TEMP 97.7
[2021-06-07] MEDS ORDERED: PANTOPRAZOLE 40 MG TABLET PO SCH (07:30)
[2021-06-07] MEDS: FLUTICASONE 110 MCG INHALER INHALATION SCH (07:48)
[2021-06-07] MEDS: FORMOTEROL FUMARATE 20 MCG/2 ML NEBU INHALATION SCH (07:48)
[2021-06-07] MEDS: IPRATROPIUM 0.5 MG/2.5 ML NEBU INHALATION SCH ×2 (07:49→11:25)
[2021-06-07] MEDS: CHOLECALCIFEROL 25 MCG (1000 IU) TABLET PO SCH (08:56)
[2021-06-07] MEDS: MEMANTINE 10 MG TAB PO SCH (08:56)
[2021-06-07] MEDS: CYANOCOBALAMIN 500 MCG TAB PO SCH (08:56)
[2021-06-07] MEDS: busPIRone HCl 10 MG TAB PO SCH (08:56)
[2021-06-07] MEDS: amLODIPine 10 MG TAB PO SCH (08:56)
[2021-06-07] MEDS: HEPARIN SODIUM,PORCINE/PF 5,000 UNIT/0.5 ML SYRINGE SQ SCH (08:56)
[2021-06-07] MEDS: VENLAFAXINE HCL ER 75 MG CAP PO SCH (08:57)
[2021-06-07] MEDS: LORazepam 0.5 MG TAB PO PRN (09:37)
[2021-06-07] MEDS: modafiniL 100 MG TAB PO SCH (09:37)
--- NOTE | 2021-06-07 11:05 | P.DS ---
Providers Date of admission: 06/05/21 00:38 Expected date of discharge: 06/07/21 Attending physician: Alec Craig Primary care physician: Alec Craig [facility] Course: Patient is a pleasantly confused 75-year-old male, that was sent to the emergency room for altered mental status. Patient reports trying to leave apartment facility to go to the store and got into an argument with the security guard supervisor. career guidance technician called 911 for altered mental status. Patient has a pertinent medical history of dementia, memory impairment, asthma, hypertension, hypothyroidism, obstructive sleep apnea, iron deficiency anemia, BPH, anxiety, depression and ADD. Workup in the emergency room found urinary tract infection, and dehydration with acute kidney injury. EKG showed sinus rhythm with first- degree AV block. Patient did test positive for benzodiazepine on drug screen, patient has not been prescribed Ativan in 2 years. Patient reports having a few pills left that he took prior to admission. 06/05/2021 Patient was seen and examined at bedside. Patient was agitated and anxious about missing clothing items. Alert and orientedx3, but easily confused. Patient denies chest pain, shortness of breath, headache, fever, chills. Patient denies pain with urination. Urinary output has increased overnight. BUN improved from 44-32, creatinine improved from 2.0-1.24. IV fluids were decreased to 75 mLs an hour, continue treatment with IV Rocephin until urine culture results. Patient had reported to nurse that he is requiring more assistance at home and may need to go to an assisted living. Social work and physical therapy consulted. 06/06/2021-hospitalist coverage 06/07/2021 Patient was seen and examined at bedside. Patient reports feeling better, alert and oriented 3, back at baseline mentation. He denies chest pain, shortness of breath, fever, headaches. States he is ready to leave the hospital but does not feel safe to go home, needs more assistance with activities of daily living. [facility] has [facility] patient for rehab, patient will be discharged to subacute rehab. Urine culture was negative for growth after 18 hours. Kidney function has returned to normal, BUN 21, creatinine 1.2. Stable for d ischarge. Assessment: Altered mental status Urinary tract infection, resolved Acute kidney injury secondary to dehydration, resolved Acute anxiety Increasing weakness at home Poor short-term memory secondary to dementia Hypertension GERD Mild intermittent asthma full code Health Concerns: multiple comorbidities Pertinent Studies: urine culture negative after 18 hours Patient Condition at Discharge: Fair Plan - Discharge Summary Discharge Rx Participant: No New Discharge Prescriptions: Continue Tiotropium Br/Olodaterol HCl [Stiolto Respimat Inhal [place]] 2 puff INHALATION RT-DAILY Melatonin 3 mg PO HS Donepezil [Aricept] 10 mg PO HS Cyanocobalamin (Vitamin B-12) [Vitamin B-12] 1,000 mcg PO DAILY Albuterol Sulfate [Albuterol Sulfate Hfa] 2 puff PO RT-BID Omeprazole 40 mg PO HS Cholecalciferol [Vitamin D3 (25 Mcg = 1000 Iu)] 50 mcg PO DAILY Memantine [Namenda] 10 mg PO BID modafiniL [Provigil] 100 mg PO DAILY Venlafaxine HCl [Effexor XR] 75 mg PO DAILY Mometasone Furoate [Asmanex Inhaler] 1 puff INHALATION RT-DAILY amLODIPine [Norvasc] 10 mg PO DAILY 30 Days #30 tab busPIRone HCl [Buspar] 10 mg PO BID Sennosides [Senokot] 8.6 mg PO HS Discontinued Oxybutynin Chloride 5 mg PO QID Sulfamethox-Tmp 800-160Mg [Bactrim DS 800-160 mg] 1 tab PO Q12HR Triamcinolone 0.1% Cream [Kenalog 0.1% Cream] 1 applic TOPICAL BID PRN PRN Reason: Rash Discharge Medication List Cholecalciferol [Vitamin D3 (25 Mcg = 1000 Iu)] 50 mcg PO DAILY 10/27/20 [History] Cyanocobalamin (Vitamin B-12) [Vitamin B-12] 1,000 mcg PO DAILY 10/27/20 [History] Donepezil [Aricept] 10 mg PO HS 10/27/20 [History] Melatonin 3 mg PO HS 10/27/20 [History] Memantine [Namenda] 10 mg PO BID 10/27/20 [History] Tiotropium Br/Olodaterol HCl [Stiolto Respimat Inhal [place]] 2 puff INHALATION RT-DAILY 10/27/20 [History] modafiniL [Provigil] 100 mg PO DAILY 10/27/20 [History] Albuterol Sulfate [Albuterol Sulfate Hfa] 2 puff PO RT-BID 03/13/21 [History] Mometasone Furoate [Asmanex Inhaler] 1 puff INHALATION RT-DAILY 03/13/21 [History] Omeprazole 40 mg PO HS 03/13/21 [History] Venlafaxine HCl [Effexor XR] 75 mg PO DAILY 03/13/21 [History] amLODIPine [Norvasc] 10 mg PO DAILY 30 Days #30 tab 03/15/21 [Rx] Sennosides [Senokot] 8.6 mg PO HS 06/05/21 [History] busPIRone HCl [Buspar] 10 mg PO BID 06/05/21 [History] Follow up Appointment(s)/Referral(s): Alec Craig MD [Primary Care Provider] - 1-2 days Activity/Diet/Wound Care/Special Instructions: No ativan at discharge. Discharge Disposition: TRANSFER TO SNF/ECF
== END 2021-06-07 13:35 ==
LOC: EC 21:36 → 6NMEDSUR 06-05 00:38
PROVIDERS: ADMIT Family Medicine; ATTEND Family Medicine
DX: N17.9 Acute kidney failure, unspecified (principal); G92.9 Unspecified toxic encephalopathy; N39.0 Urinary tract infection, site not specified; E86.0 Dehydration; F03.90 Unspecified dementia, unspecified severity, without behavioral disturbance, psychotic disturbance, mood disturbance, and anxiety; I10 Essential (primary) hypertension; K21.9 Gastro-esophageal reflux disease without esophagitis; J45.20 Mild intermittent asthma, uncomplicated; E03.9 Hypothyroidism, unspecified; N40.0 Benign prostatic hyperplasia without lower urinary tract symptoms; G47.33 Obstructive sleep apnea (adult) (pediatric); D50.9 Iron deficiency anemia, unspecified; F32.A Depression, unspecified; F41.9 Anxiety disorder, unspecified; I44.0 Atrioventricular block, first degree; N48.6 Induration penis plastica; L40.9 Psoriasis, unspecified; F90.9 Attention-deficit hyperactivity disorder, unspecified type; F90.0 Attention-deficit hyperactivity disorder, predominantly inattentive type; K44.9 Diaphragmatic hernia without obstruction or gangrene; K59.00 Constipation, unspecified; Z79.899 Other long term (current) drug therapy; Z79.51 Long term (current) use of inhaled steroids; Z91.013 Allergy to seafood; Z87.891 Personal history of nicotine dependence; Z96.89 Presence of other specified functional implants; Z86.010 Personal history of colon polyps; Z87.11 Personal history of peptic ulcer disease; Z87.19 Personal history of other diseases of the digestive system; Z98.890 Other specified postprocedural states
CPT/HCPCS: 96376; 96361 ×4; 96366 ×3; 96372 ×3; 96365; 96375; 99285; 36415; 94640 ×2; 94760; 93005; 97162; 97535; 97166; 80053 ×3; 82140; 84484; 85025 ×2; 85027; 85610; 85730; 81001; 80306; 87086; G0378 ×3; G0480; J0696 ×4; C9113 ×2; J1644 ×3; 80320

== ENCOUNTER 2022-01-08 12:20 | Inpatient (IN) | payer MEDICARE, OTHER ==
[2022-01-08] MEDS ORDERED: SODIUM CHLORIDE 0.9% 1,000 ML IV STA (12:34)
[2022-01-08] MEDS ORDERED: DIPHENOX-ATROP 2.5-0.025 MG 1 EACH TAB PO STA (12:34)
[2022-01-08 12:57] LABS: Basophils % (A) 0 %; Eosinophils # (A) 0.1 k/uL (0-0.7); Eosinophils % (A) 1 %; HCT 41.3 % (39.0-53.0); HGB 13.4 gm/dL (13.0-17.5); Lymphocytes # (A) 0.5 k/uL (1.0-4.8); Lymphocytes % (A) 7 %; MCH 29.1 pg (25.0-35.0); MCHC 32.5 g/dL (31.0-37.0); MCV 89.5 fL (80.0-100.0); Mean Platelet Volume 7.9; Monocytes # (A) 0.6 k/uL (0-1.0); Monocytes % (A) 8 %; Neutrophils % (A) 82 %; Platelet Count 121 k/uL (150-450); RBC 4.61 m/uL (4.30-5.90); RDW 13.2 % (11.5-15.5); WBC 7.3 k/uL (3.8-10.6)
[2022-01-08 13:07] LABS: Albumin 3.5 g/dL (3.5-5.0); Calcium 8.4 mg/dL (8.4-10.2); Potassium 4.2 mmol/L (3.5-5.1); Total Bilirubin 1.4 mg/dL (0.2-1.3); Total Protein 5.7 g/dL (6.3-8.2)
--- NOTE | 2022-01-08 13:19 | ED ---
General Adult HPI - General Chief complaint: Abdominal Pain Stated complaint: Diarrhea Time Seen by Provider: 01/08/22 12:20 Source: patient, EMS, RN notes reviewed, old records reviewed Mode of arrival: EMS Limitations: altered mental status - History of Present Illness Initial comments: This is a 76-year-old male who presents emergency Department because of he has been having diarrhea since yesterday at 5:00. Patient is an extremely poor historian secondary to dementia. According to EMS the patient stated to them that he didn't feel capable of taking care of himself at home anymore. Patient lives alone. Patient denies any pain currently. Patient denies any chest pain difficult breathing shortness breath per patient denies having had a fever. Patient denies any abdominal pain. She denies any antibiotic use recently - Related Data Home Medications Medication Instructions Recorded Confirmed Cholecalciferol [Vitamin D3 (25 50 mcg PO DAILY 10/27/20 06/05/21 Mcg = 1000 Iu)] Cyanocobalamin (Vitamin B-12) 1,000 mcg PO DAILY 10/27/20 06/05/21 [Vitamin B-12] Donepezil [Aricept] 10 mg PO HS 10/27/20 06/05/21 Melatonin 3 mg PO HS 10/27/20 06/05/21 Memantine [Namenda] 10 mg PO BID 10/27/20 06/05/21 Tiotropium Br/Olodaterol HCl 2 puff INHALATION RT-DAILY 10/27/20 06/05/21 [Stiolto Respimat Inhal [place]] modafiniL [Provigil] 100 mg PO DAILY 10/27/20 06/05/21 Albuterol Sulfate [Albuterol 2 puff PO RT-BID 03/13/21 06/05/21 Sulfate Hfa] Mometasone Furoate [Asmanex 1 puff INHALATION RT-DAILY 03/13/21 06/05/21 Inhaler] Omeprazole 40 mg PO HS 03/13/21 06/05/21 Venlafaxine HCl [Effexor XR] 75 mg PO DAILY 03/13/21 06/05/21 Sennosides [Senokot] 8.6 mg PO HS 06/05/21 06/05/21 busPIRone HCl [Buspar] 10 mg PO BID 06/05/21 06/05/21 Previous Rx's Medication Instructions Recorded amLODIPine [Norvasc] 10 mg PO DAILY 30 Days #30 tab 03/15/21 Allergies Allergy/AdvReac Type Severity Reaction Status Date / Time shellfish derived Allergy Swelling Verified 01/08/22 12:29 Review of Systems ROS Statement: Those systems with pertinent positive or pertinent negative responses have been documented in the HPI. ROS Other: All systems not noted in ROS Statement are negative. Past Medical History Past Medical History: Asthma, Dementia, GERD/Reflux, Hypertension, Memory Impairment, Prostate Disorder, Skin Disorder, Sleep Apnea/CPAP/BIPAP, Thyroid Disorder Additional Past Medical History / Comment(s): Pt states he has had a recent UTI treated with antibiotic, PUD, hiatal hernia, benign colon polyps, constipation, BPH, vertigo, peyronies disorder, iron anemia, GILBERTO without device, hypothyroid, acute kidney injury, psoriaisis. History of Any Multi-Drug Resistant Organisms: None Reported Past Surgical History: Orthopedic Surgery Additional Past Surgical History / Comment(s): Penile implant, EGD, colonoscopy, L hand surgery d/t injury, R hand trigger finger release. Past Anesthesia/Blood Transfusion Reactions: No Reported Reaction Past Psychological History: ADD/ADHD, Anxiety, Depression Smoking Status: Former smoker - Past Family History Mother Family Medical History: No Reported History Additional Family Medical History / Comment(s): Mother lived to be 94 yrs old. Father Family Medical History: No Reported History Additional Family Medical History / Comment(s): Father lived to be 97 yrs old. General Exam - General Exam Comments Initial Comments: GENERAL: Patient is well-developed and well-nourished. Patient is nontoxic and well- hydrated and is in no acute distress. ENT: Neck is soft and supple. No significant lymphadenopathy is noted. Oropharynx is clear. Moist mucous membranes. Neck has full range of motion without eliciting any pain. EYES: The sclera were anicteric and conjunctiva were pink and moist. Extraocular movements were intact and pupils were equal round and reactive to light. Eyelids were unremarkable. PULMONARY: Unlabored respirations. Good breath sounds bilaterally. No audible rales rhonchi or wheezing was noted. CARDIOVASCULAR: There is a regular rate and rhythm without any murmurs gallops or rubs. ABDOMEN: Soft and nontender with normal bowel sounds. No palpable organomegaly was noted. There is no palpable pulsatile mass. SKIN: Skin is clear with no lesions or rashes and otherwise unremarkable. NEUROLOGIC: Patient is alert and oriented 2. Cranial nerves II through XII are grossly intact. Motor and sensory are also intact. Normal speech, volume and content. Symmetrical smile. MUSCULOSKELETAL: Normal extremities with adequate strength and full range of motion. LYMPHATICS: No significant lymphadenopathy is noted PSYCHIATRIC: Normal psychiatric evaluation. Limitations: altered mental status Course Vital Signs 01/08/22 12:22 Temperature 97.9 F Pulse Rate 61 Respiratory 18 Rate Blood Pressure 123/62 O2 Sat by Pulse 96 Oximetry Medical Decision Making - Medical Decision Making I spoke with Dr. Davila he agreed to admit the patient admitted the patient I wrote admitting orders. Patient will be needing placement because he is unable to take care of himself at home. - Lab Data Result diagrams: 01/08/22 12:46 01/08/22 12:46 Lab Results 01/08/22 01/08/22 Range/Units 12:46 12:46 WBC 7.3 (3.8-10.6) k/uL RBC 4.61 (4.30-5.90) m/uL Hgb 13.4 (13.0-17.5) gm/dL Hct 41.3 (39.0-53.0) % MCV 89.5 (80.0-100.0) fL MCH 29.1 (25.0-35.0) pg MCHC 32.5 (31.0-37.0) g/dL RDW 13.2 (11.5-15.5) % Plt Count 121 L (150-450) k/uL MPV 7.9 Neutrophils % 82 % Lymphocytes % 7 % Monocytes % 8 % Eosinophils % 1 % Basophils % 0 % Neutrophils # 6.0 (1.3-7.7) k/uL Lymphocytes # 0.5 L (1.0-4.8) k/uL Monocytes # 0.6 (0-1.0) k/uL Eosinophils # 0.1 (0-0.7) k/uL Basophils # 0.0 (0-0.2) k/uL Sodium 140 (137-145) mmol/L Potassium 4.2 (3.5-5.1) mmol/L Chloride 103 (98-107) mmol/L Carbon Dioxide 28 (22-30) mmol/L Anion Gap 9 mmol/L BUN 19 (9-20) mg/dL Creatinine 0.99 (0.66-1.25) mg/dL Est GFR (CKD-EPI)AfAm 85 (>60 ml/min/1.73 sqM) Est GFR (CKD-EPI)NonAf 73 (>60 ml/min/1.73 sqM) Glucose 120 H (74-99) mg/dL Calcium 8.4 (8.4-10.2) mg/dL Total Bilirubin 1.4 H (0.2-1.3) mg/dL AST 17 (17-59) U/L ALT 14 (4-49) U/L Alkaline Phosphatase 92 (38-126) U/L Total Protein 5.7 L (6.3-8.2) g/dL Albumin 3.5 (3.5-5.0) g/dL Amylase 45 (30-110) U/L Lipase 15 L (23-300) U/L Disposition Clinical Impression: Acute diarrhea, Inability to perform activities of daily living Disposition: ADMITTED IP TO THIS [facility] Referrals: Alec Craig MD [Primary Care Provider] - 1-2 days Time of Disposition: 15:02
[2022-01-08] MEDS ORDERED: SODIUM CHLORIDE 0.9% 1,000 ML IV ONE (15:04)
--- NOTE | 2022-01-08 17:51 | CT ---
EXAMINATION TYPE: CT brain wo con CT DLP: 1137.4 mGycm, Automated exposure control for dose reduction was used. DATE OF EXAM: 01/08/2022 5:23 PM COMPARISON: 03/13/2021. MRI brain 10/19/2015, 08/10/2018. CLINICAL INDICATION:Male, 76 years old with history of stroke, TECHNIQUE: Brain: Axial CT images of the brain were obtained with coronal and sagittal reformats created and rev iewed. Contrast used: None. Oral contrast used: None. FINDINGS: Brain: Extra-axial spaces: No abnormal extra-axial fluid collections. Ventricular system: Within normal limits Cerebral parenchyma: Remote right basal ganglia lacunar injury. No acute intraparenchymal hemorrhage or mass effect. The marquez-white junction is well differentiated. Cerebellum: Unremarkable. Mass effect: No evidence of midline shift. Intracranial vasculature: Atherosclerotic calcifications of the intracranial vessels. Soft tissues: Normal. Calvarium/osseous structures: No depressed skull fracture. Paranasal sinuses and mastoid air cells: Clear Visualized orbits: Orbital contents are intact. There is an intraconal mass seen within the right orb it which is increased in size from prior now measuring 14 mm, previously 10 mm in greatest dimension in 2019. IMPRESSION: 1. No acute intracranial process. 2. 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 3. Right basal ganglia lacunar injury.
[2022-01-08] MEDS: OXYBUTYNIN CHLORIDE 5 MG TAB PO SCH ×2 (17:55→21:36)
[2022-01-08] MEDS: ALBUTEROL NEBULIZED 2.5 MG/3 ML INHALATION SCH (19:06)
[2022-01-08] MEDS: FLUTICASONE 110 MCG INHALER INHALATION SCH (19:06)
[2022-01-08] MEDS: FORMOTEROL FUMARATE 20 MCG/2 ML NEBU INHALATION SCH (19:06)
[2022-01-08] MEDS: IPRATROPIUM 0.5 MG/2.5 ML NEBU INHALATION SCH (19:06)
[2022-01-08] MEDS: SENNOSIDES 8.6 MG TAB PO SCH (20:00)
[2022-01-08] MEDS: MELATONIN 3 MG TABLET PO SCH (21:36)
[2022-01-08] MEDS: VENLAFAXINE HCL ER 75 MG CAP PO SCH (21:36)
[2022-01-08] MEDS: busPIRone HCl 10 MG TAB PO SCH (21:36)
[2022-01-08] MEDS: LORazepam 1 MG TAB PO SCH (21:36)
[2022-01-08] MEDS: DONEPEZIL 10 MG TAB PO SCH (21:36)
[2022-01-08] MEDS: MEMANTINE 10 MG TAB PO SCH (21:36)
[2022-01-08] MEDS: CHOLECALCIFEROL 25 MCG (1000 IU) TABLET PO SCH (21:36)
--- NOTE | 2022-01-09 04:31 | HP ---
HISTORY AND PHYSICAL CHIEF COMPLAINTS: Change in mental status, abdominal pain, diarrhea. HISTORY OF PRESENT ILLNESS: This is a 76-year-old gentleman with past medical history of multiple medical issues including asthma, dementia, also complains of abdominal pain and diarrhea. The patient is confused. The patient was admitted for evaluation and treatment. There is no history of any fever, rigors, or chills at this time. COVID-[address] scan is not available. PAST MEDICAL HISTORY: Reviewed, include dementia, asthma. MEDICATIONS: Rest of the medications noted. Home medications also reviewed include oxybutynin, dose and rest of medication noted. ALLERGIES: Shellfish. FAMILY HISTORY: No history of any heart disease or strokes in the family. SOCIAL HISTORY: Previous history of smoker. REVIEW OF SYSTEMS: A 14-point review of systems is negative except as mentioned earlier. PHYSICAL EXAMINATION: VITAL SIGNS: Pulse is 60, blood pressure 109/71, respirations 16. HEENT: Conjunctivae normal. NECK: No JVD. CARDIOVASCULAR: S1, S2 muffled. RESPIRATIONS: Breath sounds diminished at the bases. No rhonchi. No crackles. ABDOMEN: Soft, nontender. LEGS: No edema. NERVOUS SYSTEM: Diffusely weak and tone is also increased. History of Parkinson disease and parkinsonian tremors also present. LABS: Reviewed. ASSESSMENT: 1. Change in mental status and confusion. 2. Gait dysfunction, possible Parkinson's. 3. Dementia. 4. Abdominal pain, diarrhea, possible acute diarrheal disease. 5. History of dementia. 6. Multiple medical issues. RECOMMENDATIONS AND DISCUSSION: This is a 76-year-old gentleman who presented with multiple complex medical issues. We will monitor the patient closely, otherwise I would recommend baseline evaluation. Neurology consultation for possible Parkinson's. PT, OT evaluation. sprinkler worker to evaluate for the home situation. Prognosis guarded. Further recommendations to follow. MMODL / IJN: [id number] /
[2022-01-09] MEDS: FORMOTEROL FUMARATE 20 MCG/2 ML NEBU INHALATION SCH ×2 (07:51→21:06)
[2022-01-09] MEDS: IPRATROPIUM 0.5 MG/2.5 ML NEBU INHALATION SCH ×4 (07:51→21:06)
[2022-01-09] MEDS: FLUTICASONE 110 MCG INHALER INHALATION SCH ×2 (07:52→21:05)
[2022-01-09] MEDS: OXYBUTYNIN CHLORIDE 5 MG TAB PO SCH ×4 (09:09→20:21)
[2022-01-09] MEDS: busPIRone HCl 10 MG TAB PO SCH ×2 (09:09→20:22)
[2022-01-09] MEDS: MELOXICAM 7.5 MG TAB PO SCH (09:10)
[2022-01-09] MEDS: MEMANTINE 10 MG TAB PO SCH ×2 (09:10→20:21)
[2022-01-09] MEDS: amLODIPine 10 MG TAB PO SCH (09:11)
[2022-01-09] MEDS: CYANOCOBALAMIN 500 MCG TAB PO SCH (09:11)
[2022-01-09] MEDS: FAMOTIDINE 20 MG TAB PO SCH (09:11)
[2022-01-09] MEDS: LORazepam 1 MG TAB PO SCH ×2 (09:15→20:21)
[2022-01-09 09:16] LABS: Basophils # (A) 0.03 X 10*3/uL (0.00-0.10); Basophils % (A) 0.4 %; Eosinophils # (A) 0.14 X 10*3/uL (0.04-0.35); Eosinophils % (A) 2.1 %; HCT 35.7 % (39.6-50.0); HGB 11.8 g/dL (13.0-17.0); Immature Grans, Automated 0.4 %; Lymphocytes # (A) 0.72 X 10*3/uL (0.90-5.00); Lymphocytes % (A) 10.6 %; MCH 29.1 pg (27.0-32.0); MCHC 33.1 g/dL (32.0-37.0); MCV 88.1 fL (80.0-97.0); Monocytes # (A) 0.78 X 10*3/uL (0.20-1.00); Monocytes % (A) 11.5 %; NRBC Per 100 WBC 0 /100 WBCS (0.0-0.0); Neutrophils # (A) 5.08 X 10*3/uL (1.80-7.70); Platelet Count 112 X 10*3/uL (140-440); RBC 4.05 X 10*6/uL (4.40-5.60); RDW 13.2 % (11.5-14.5); WBC 6.78 X 10*3/uL (4.50-10.00)
[2022-01-09 09:45] LABS: African American GFR (CKD) 95.1 (60.0-200.0); Anion Gap 7.3 mmol/L (10.00-18.00); BUN/Creat Ratio 20.44 Ratio (12.00-20.00); Blood Urea Nitrogen 18.4 mg/dL (9.0-27.0); Calcium 7.9 mg/dL (8.7-10.3); Carbon Dioxide 25.7 mmol/L (20.0-27.5); Non-African American GFR(CKD) 82.1 (60.0-200.0); Potassium 3.9 mmol/L (3.5-5.5)
[2022-01-09] MEDS ORDERED: LOPERAMIDE 2 MG CAP PO PRN (11:12)
[2022-01-09] MEDS: ALBUTEROL NEBULIZED 2.5 MG/3 ML INHALATION SCH ×2 (11:53→21:05)
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
[2022-01-09] MEDS: CHOLECALCIFEROL 25 MCG (1000 IU) TABLET PO SCH (20:20)
[2022-01-09] MEDS: MELATONIN 3 MG TABLET PO SCH (20:21)
[2022-01-09] MEDS: VENLAFAXINE HCL ER 75 MG CAP PO SCH (20:21)
[2022-01-09] MEDS: DONEPEZIL 10 MG TAB PO SCH (20:22)
[2022-01-09] MEDS: CARBIDOPA-LEVODOPA 25-100 MG 1 EACH TAB PO SCH (20:22)
[2022-01-09] MEDS: SENNOSIDES 8.6 MG TAB PO SCH (20:22)
--- NOTE | 2022-01-10 06:30 | PN ---
PROGRESS NOTE SUBJECTIVE: This is a 76-year-old gentleman admitted with change in mental status, also had some diarrhea. The patient had dementia. No chest pain. No palpitation. PHYSICAL EXAMINATION: VITAL SIGNS: Pulse is 56. Blood pressure is 172/73, respirations 18. HEENT: Conjunctivae normal. NECK: No JVD. CARDIOVASCULAR: S1, S2 muffled. RESPIRATIONS: Breath sounds diminished at the bases. ABDOMEN: Soft, nontender. NERVOUS SYSTEM: No focal deficits. LABS: Reviewed. ASSESSMENT: 1. Change in mental status and confusion. 2. Diarrhea, possible acute diarrheal disease. 3. Gait dysfunction, possible Parkinson's. 4. Dementia. 5. Abdominal pain and diarrhea. 6. Multiple medical issues. RECOMMENDATIONS AND DISCUSSION: Recommend to continue current management and symptomatic treatment. We will check stool culture and stool WBC. Closely follow with Neurology. Guarded prognosis. PT/OT evaluation, possible ECF rehab. Further recommendations to follow. LUZ / ALBERTO: [id number] /
[2022-01-10] MEDS: ALBUTEROL NEBULIZED 2.5 MG/3 ML INHALATION SCH ×3 (07:13→21:22)
[2022-01-10] MEDS: FORMOTEROL FUMARATE 20 MCG/2 ML NEBU INHALATION SCH ×2 (07:13→21:22)
[2022-01-10] MEDS: FLUTICASONE 110 MCG INHALER INHALATION SCH ×3 (07:13→21:24)
[2022-01-10] MEDS: IPRATROPIUM 0.5 MG/2.5 ML NEBU INHALATION SCH ×4 (07:13→21:22)
[2022-01-10] MEDS: MELOXICAM 7.5 MG TAB PO SCH (08:54)
[2022-01-10] MEDS: amLODIPine 10 MG TAB PO SCH (08:54)
[2022-01-10] MEDS: CARBIDOPA-LEVODOPA 25-100 MG 1 EACH TAB PO SCH ×2 (08:54→20:56)
[2022-01-10] MEDS: busPIRone HCl 10 MG TAB PO SCH ×2 (08:54→20:55)
[2022-01-10] MEDS: FAMOTIDINE 20 MG TAB PO SCH (08:55)
[2022-01-10] MEDS: OXYBUTYNIN CHLORIDE 5 MG TAB PO SCH ×4 (08:56→22:59)
[2022-01-10] MEDS: MEMANTINE 10 MG TAB PO SCH ×2 (08:56→20:55)
[2022-01-10] MEDS: LORazepam 1 MG TAB PO SCH ×2 (08:56→20:55)
[2022-01-10] MEDS: CYANOCOBALAMIN 500 MCG TAB PO SCH (11:54)
[2022-01-10] MEDS ORDERED: BARIUM SULFATE 450 ML ORAL.SUSP BOTTLE PO PRN (12:03)
[2022-01-10 12:12] LABS: Appearance,Urine Clear (Clear); Bilirubin,Urine Negative (Negative); Blood,Urine Trace (Negative); Color,Urine Yellow; Glucose,Urine (UA) Negative (Negative); Ketones,Urine Negative (Negative); Leukocyte Esterase,Urine Small (Negative); Mucus,Urine Occasional /hpf; Nitrite,Urine Negative (Negative); PH, Urine 5.5 (5.0-8.0); Protein,Urine Negative (Negative); RBC,Urine 28 /hpf (0-5); Specific Gravity,Urine 1.018 (1.001-1.035); Urobilinogen,Urine <2.0 mg/dL (<2.0); WBC,Urine 17 /hpf (0-5)
[2022-01-10] MEDS: PANTOPRAZOLE 40 MG/10 ML VIAL IVP SCH (12:37)
[2022-01-10] MEDS: LEVOFLOXACIN 500MG-D5W PMX 500 MG in DEXTROSE/WATER 1 100ML.BAG IVPB SCH (12:37)
--- NOTE | 2022-01-10 13:39 | P.PN ---
Subjective Progress Note Date: 01/10/22 This is a 76-year-old male who was recently admitted with changes in mental status also had some excessive diarrhea and is being closely monitored. Patient with history of dementia and has been evaluated by neurology. Patient continues with diarrhea and upset stomach and reports increased distention of gas and bloating. Will order CT abdomen pelvis. Awaiting stool cultures and will obtain blood cultures as well. Patient will be initiated on empiric antibiotics in the form of Levaquin and will await CT report. Patient currently resides at [facility] and [facility] following as patient also having significant weakness and decline in ADLs unable to care for himself and possible ECF being planned. Patient is afebrile denies chest pain or shortness of breath. Patient denies nausea or vomiting but continues to report abdominal distention with gas and bloating and continued diarrhea. Review of systems: Constitutional: No reports of fatigue, fever, or chills Cardiovascular: No reports of chest pain or palpitations Respiratory: No reports of shortness of breath or cough GI: No reports of nausea, no reports of of vomiting, reports abdominal pain with gas distention and continued diarrhea : No reports of dysuria or retention Neurovascular: reports of generalized weakness All medications have been reviewed Active Medications Albuterol Sulfate (Albuterol Nebulized 2.5 Mg/3 Ml) 2.5 mg INHALATION RT-BID [facility] Last Admin: 01/10/22 07:13 Dose: 2.5 mg Amlodipine Besylate (Amlodipine 10 Mg Tab) 10 mg PO DAILY [facility] Last Admin: 01/10/22 08:54 Dose: 10 mg Barium Sulfate (Barium Sulfate 450 Ml Oral.Susp Bottle) 450 ml PO Q3HR PRN PRN Reason: CT Scan Stop: 01/11/22 12:04 Buspirone HCl (Buspirone Hcl 10 Mg Tab) 10 mg PO BID [facility] Last Admin: 01/10/22 08:54 Dose: 10 mg Carbidopa/Levodopa (Carbidopa-Levodopa 25-100 Mg 1 Each Tab) 1 each PO BID [facility] Last Admin: 01/10/22 08:54 Dose: 1 each Cholecalciferol (Cholecalciferol 25 Mcg (1000 Iu) Tablet) 50 mcg PO HS [facility] Last Admin: 01/09/22 20:20 Dose: 50 mcg Cyanocobalamin (Cyanocobalamin 500 Mcg Tab) 1,000 mcg PO DAILY [facility] Last Admin: 01/10/22 11:54 Dose: Not Given Donepezil HCl (Donepezil 10 Mg Tab) 10 mg PO [facility] Last Admin: 01/09/22 20:22 Dose: 10 mg Famotidine (Famotidine 20 Mg Tab) 40 mg PO DAILY [facility] Last Admin: 01/10/22 08:55 Dose: 40 mg Fluticasone Propionate (Fluticasone 110 Mcg Inhaler) 1 puff INHALATION RT-BID [facility] Last Admin: 01/10/22 07:13 Dose: 1 puff Formoterol Fumarate (Formoterol Fumarate 20 Mcg/2 Ml Nebu) 20 mcg INHALATION RT-BID [facility] Last Admin: 01/10/22 07:13 Dose: 20 mcg Levofloxacin 500 mg/ IV (Solution) 100 mls @ 100 mls/hr IVPB Q24H [facility]; Protocol Last Admin: 01/10/22 12:37 Dose: 100 mls/hr Iopamidol (Iopamidol Contrast (Oral Use) Vial) 30 ml PO Q60M PRN PRN Reason: CT Scan Stop: 01/11/22 11:58 Ipratropium [place] (Ipratropium 0.5 Mg/2.5 Ml Nebu) 0.5 mg INHALATION RT-QID [facility] Last Admin: 01/10/22 10:37 Dose: 0.5 mg Loperamide HCl (Loperamide 2 Mg Cap) 2 mg PO QID PRN PRN Reason: Diarrhea Last Admin: 01/09/22 20:21 Dose: 2 mg Lorazepam (Lorazepam 1 Mg Tab) 1 mg PO BID [facility] Last Admin: 01/10/22 08:56 Dose: 1 mg Melatonin (Melatonin 3 Mg Tablet) 3 mg PO [facility] Last Admin: 01/09/22 20:21 Dose: 3 mg Meloxicam (Meloxicam 7.5 Mg Tab) 15 mg PO DAILY [facility] Last Admin: 01/10/22 08:54 Dose: 15 mg Memantine (Memantine 10 Mg Tab) 10 mg PO BID [facility] Last Admin: 01/10/22 08:56 Dose: 10 mg Oxybutynin Chloride (Oxybutynin Chloride 5 Mg Tab) 5 mg PO QID [facility] Last Admin: 01/10/22 12:37 Dose: 5 mg Pantoprazole Sodium (Pantoprazole 40 Mg/10 Ml Vial) 40 mg IVP DAILY [facility] Last Admin: 01/10/22 12:37 Dose: 40 mg Senna (Sennosides 8.6 Mg Tab) 8.6 mg PO HS [facility] Last Admin: 01/09/22 20:22 Dose: Not Given Venlafaxine HCl (Venlafaxine Hcl Er 75 Mg Cap) 75 mg PO HS [facility] Last Admin: 01/09/22 20:21 Dose: 75 mg PHYSICAL EXAMINATION: GENERAL: The patient is alert and oriented x2-3, thin built, elderly appearing male HEENT: Pupils are round and equally reacting to light. EOMI. no scleral icterus. No conjunctival pallor. Normocephalic, atraumatic. No pharyngeal erythema. No thyromegaly. CARDIOVASCULAR: S1 and S2 muffled PULMONARY: diminished breath sounds bilaterally with no wheezing or rhonchi noted. ABDOMEN: soft. Nontender on exam. Mildly distended, normoactive bowel sounds. No palpable organomegaly. MUSCULOSKELETAL: No joint swelling or deformity. EXTREMITIES: No cyanosis, clubbing, or pedal edema. NEUROLOGICAL: Gross neurological examination did not reveal any focal deficits. Diffuse weakness SKIN: No rashes. Assessment: Change in mental status and confusion Diarrhea, possible acute diarrheal disease, C. diff ruled out Gait dysfunction, possible Parkinson's Dementia Abdominal pain with diarrhea and distention History of asthma not an exacerbation Gastroesophageal reflux disease Hypertension Decreased functionality in ADLs Sleep apnea Hypothyroidism History of anxiety/depression GI prophylaxis DVT prophylaxis Plan: Recommend to continue with current medications and management with neurology following. Patient has been seen and evaluated by PT/OT therapy recommending rehab and patient is agreeable as he currently resides at [facility] in an independent apartment although having decline most recently in ability to care for himself and perform ADLs. Patient is becoming more weak with increased gait dysfunction with memory impairment as well. Patient does follow with neurologist Dr. Naik in the outpatient setting and neurology is following currently. Patient being started on Sinemet. Patient continues with abdominal distention along with pain and gas with continued diarrhea and will order CT abdomen and pelvis which is currently pending and empirically start the patient on IV Levaquin. Currently awaiting stool cultures and will add blood cultures as well. Social work is following and awaiting return call from family to discuss discharge planning needs. Due to multiple complex medical issues, prognosis is guarded. The impression and plan of care has been dictated by Silvia Krause nurse pra ctitioner as directed. Dr. Giovanni MD I have performed a history and examination and MDM of this patient, discussed the same with the dictator, and agree with the dictator's assessment and plan as written ,documented as a scribe. Based on total visit time, I have performed more than 50% of the visit. Any additional findings or plans will be noted. Objective - Vital Signs Vital signs: Vital Signs Temp 97.6 F 01/10/22 07:00 Pulse 52 L 01/10/22 10:47 Resp 16 01/10/22 08:56 BP 161/65 01/10/22 07:00 Pulse Ox 94 L 01/10/22 07:00 FiO2 Intake & Output 01/09/22 01/10/22 01/10/22 18:59 06:59 18:59 Intake Total 118 118 Balance 118 118 Intake: Oral 118 118 Other: Voiding Method Toilet # Voids 3 1 # Bowel Movements 3 - Labs CBC & Chem 7: 01/09/22 05:21 01/09/22 05:21 Labs: Abnormal Lab Results - Last 24 Hours (Table) 01/09/22 Range/Units 05:21 Vitamin B12 1741.0 H (200.0-944.0) pg/mL
[2022-01-10] MEDS: IOPAMIDOL CONTRAST (ORAL USE) VIAL PO PRN ×2 (15:16→16:22)
--- NOTE | 2022-01-10 17:29 | CT ---
EXAMINATION TYPE: CT abdomen pelvis wo con DATE OF EXAM: 01/10/2022 COMPARISON: 07/10/2021 HISTORY: ABDOMINAL PAIN AND DIARRHEA CT DLP: 951 mGycm Automated exposure control for dose reduction was used. Images obtained from the diaphragm to the floor the pelvis with oral contrast only. There is some infiltrate and atelectasis at both lung bases. Heart is borderline enlarged. No pericar dial effusion. Liver and spleen are intact. There is no pancreatic mass. The stomach is intact. Small bowel pattern is fairly normal. No bowel obstruction. There is no evidence of pancreatic mass. Gallbladder is large . Bile ducts are not dilated. There are multiple calcified gallstones. There is no adrenal mass. Kidneys have normal size. No hydronephrosis. Ureters are not dilated. There is 5 cm cortical cyst lower pole left kidney. There is a 4 cm cortical cyst upper pole left kidney. No retroperitoneal adenopathy. The bladder distends smoothly. There is retained fecal material in the rectum that measures 8.5 cm. No inguinal hernia. There is presacral edema. There is a large divertic ulum of the posterior left side of the urinary bladder that measures 5 cm. Appendix not definitely se en. There is some mild fat stranding around the rectum. The lumbar vertebra appear intact. No compression fracture. Posterior elements are intact. Bony pelvi s is intact. The hip joints are intact. IMPRESSION: Large bladder diverticulum. Rectal fecal impaction with perirectal edema. Fecal impaction is new comp ared to old exam. Nonobstructing right renal 5 mm calculus slightly larger than on the exam. Bilateral basilar pulmonary infiltrates and atelectasis for which are mostly new compared to the old exam. Heart is slightly increased compared to old exams
[2022-01-10] MEDS: CHOLECALCIFEROL 25 MCG (1000 IU) TABLET PO SCH (20:55)
[2022-01-10] MEDS: VENLAFAXINE HCL ER 75 MG CAP PO SCH (20:55)
[2022-01-10] MEDS: SENNOSIDES 8.6 MG TAB PO SCH (20:56)
[2022-01-10] MEDS: DONEPEZIL 10 MG TAB PO SCH (20:56)
[2022-01-10] MEDS: MELATONIN 3 MG TABLET PO SCH (20:56)
--- NOTE | 2022-01-10 23:48 | P.PN ---
Subjective Progress Note Date: 01/10/22 Patient was seen for a follow-up. Patient denies headache. States he has some dizziness, but not new. Patient tolerating Sinemet well with no side effects. Objective - Vital Signs Vital signs: Vital Signs Temp 97.9 F 01/10/22 15:00 Pulse 53 L 01/10/22 15:00 Resp 20 01/10/22 15:00 BP 109/62 01/10/22 15:00 Pulse Ox 96 01/10/22 15:00 FiO2 Intake & Output 01/09/22 01/10/22 01/10/22 18:59 06:59 18:59 Intake Total 118 118 Balance 118 118 Intake: Oral 118 118 Other: Voiding Method Toilet # Voids 3 1 2 # Bowel Movements 3 - Exam Patient is alert and awake. Patient is extremely hard of hearing. Patient's tone has improved in the arms. No tremors at rest. Bradykinesia appears slightly better possibly. - Labs CBC & Chem 7: 01/09/22 05:21 01/09/22 05:21 Labs: Abnormal Lab Results - Last 24 Hours (Table) 01/09/22 01/10/22 Range/Units 05:21 11:00 Vitamin B12 1741.0 H (200.0-944.0) pg/mL Urine Blood Trace H (Negative) Ur Leukocyte Esterase Small H (Negative) Urine RBC 28 H (0-5) /hpf Urine WBC 17 H (0-5) /hpf Urine Mucus Occasional H (None) /hpf Assessment and Plan Assessment: * Atypical Parkinson's versus Parkinson's disease. Patient not taking any medication which can produce parkinsonism. No evidence of NPH on CT head. 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 Plan: * Continue Sinemet 25/100, one tablet twice a day. Patient's tone is slightly better. May increase the dose to 3 times a day if needed. Patient informed to watch for any hallucinations or nausea or dizziness. * Patient may benefit from outpatient KRISTAL scan to confirm Parkinson's/p arkinsonism. * PT OT, evaluate gait. * Patient has right orbital mass, which has grown in size as compared to the study from 2019. May need MRI of the brain/orbits with and without contrast as an outpatient. * B12 1741, folate 10.50. TSH was normal 0.853 on 03/15/2021. * Neurologically clear for discharge. Recommend patient follow up with his neurologist in 2-4 weeks.
[2022-01-11] MEDS: FLUTICASONE 110 MCG INHALER INHALATION SCH ×2 (07:31→19:23)
[2022-01-11] MEDS: IPRATROPIUM 0.5 MG/2.5 ML NEBU INHALATION SCH ×4 (07:31→19:23)
[2022-01-11] MEDS: FORMOTEROL FUMARATE 20 MCG/2 ML NEBU INHALATION SCH ×2 (07:31→19:23)
[2022-01-11] MEDS: ALBUTEROL NEBULIZED 2.5 MG/3 ML INHALATION SCH ×2 (07:31→19:23)
[2022-01-11] MEDS: busPIRone HCl 10 MG TAB PO SCH ×2 (09:36→20:39)
[2022-01-11] MEDS: PANTOPRAZOLE 40 MG/10 ML VIAL IVP SCH (09:36)
[2022-01-11] MEDS: MEMANTINE 10 MG TAB PO SCH ×2 (09:37→20:40)
[2022-01-11] MEDS: CARBIDOPA-LEVODOPA 25-100 MG 1 EACH TAB PO SCH ×2 (09:37→20:39)
[2022-01-11] MEDS: OXYBUTYNIN CHLORIDE 5 MG TAB PO SCH ×4 (09:37→20:39)
[2022-01-11] MEDS: FAMOTIDINE 20 MG TAB PO SCH (09:37)
[2022-01-11] MEDS: MELOXICAM 7.5 MG TAB PO SCH (09:38)
[2022-01-11] MEDS: LORazepam 1 MG TAB PO SCH ×2 (09:38→20:39)
[2022-01-11] MEDS: amLODIPine 10 MG TAB PO SCH (09:39)
[2022-01-11] MEDS: CYANOCOBALAMIN 500 MCG TAB PO SCH (09:51)
[2022-01-11] MEDS: LEVOFLOXACIN 500MG-D5W PMX 500 MG in DEXTROSE/WATER 1 100ML.BAG IVPB SCH (12:43)
[2022-01-11] MEDS: LACTULOSE 20 GM/30 ML CUP PO SCH ×5 (13:05→18:07)
--- NOTE | 2022-01-11 15:14 | P.GSCN ---
History of Present Illness Consult date: 01/11/22 History of present illness: CHIEF COMPLAINT: Altered mental status HISTORY OF PRESENT ILLNESS: This is a 76-year-old male who presented to the hospital with altered mental status changes and diarrhea. He does have a known history of dementia and there are concerns for possible Parkinson's. He is evaluated by neurology service and started on Sinemet. Patient had a computed tomography scan completed due to his abdominal pain and diarrhea. The results demonstrated rectal fecal impaction with perirectal edema. Fecal impaction is new compared to old exam. Patient denies abdominal pain. He is eating a regular diet. White count is normal. He denies any nausea or vomiting. Denies any fevers. PAST MEDICAL HISTORY: Right orbital mass, Asthma, Dementia, GERD/Reflux, Hypertension, Memory Impairment, Prostate Disorder, Skin Disorder, Sleep Apnea/CPAP/BIPAP, Thyroid Disorder, peptic ulcer disease, constipation PAST SURGICAL HISTORY: See list. MEDICATIONS: See list. ALLERGIES: See list. SOCIAL HISTORY: No illicit drug use. REVIEW OF SYSTEMS: CONSTITUTIONAL: Denies fever or chills. HEENT: Denies blurred vision, vision changes, or eye pain. Denies hemoptysis CARDIOVASCULAR: Denies chest pain or pressure. RESPIRATORY: No shortness of breath. GASTROINTESTINAL: See HPI for pertinent findings HEMATOLOGIC: Denies bleeding disorders. GENITOURINARY: Denies any blood in urine or increased urinary frequency. SKIN: Denies pruitis. Denies rash. PHYSICAL EXAM: VITAL SIGNS: Reviewed GENERAL: Well-developed in no acute distress. HEENT: No sclera icterus. Extraocular movements grossly intact. Moist buccal mucosa. Head is atraumatic, normocephalic. No nasal drainage. ABDOMEN: Soft. Nondistended. Nontender NEUROLOGIC: Awake and alert. Some confusion. Rectal exam: Stool is present in the rectum. Small amount of soft stool was evacuated. Patient did have soft stool in his diaper LABORATORY DATA: IMAGING: Computed tomography scan large bladder diverticulum. Rectal fecal impaction with perirectal edema. Fecal impaction is new compared to old exam. Nonobstructing right renal 5 mm calculus slightly larger than on the exam. Bi lateral basilar pulmonary infiltrates and atelectasis for which are mostly new compared to the old exam. Heart is slightly increased compared to old exams. ASSESSMENT: 1. Rectal fecal impaction with perirectal edema PLAN: -Ordered soapsud enemas until clear -Lactulose 30 mL one dose every hour 5 doses -Discontinue Imodium last given on 01/09/2022 -Okay to continue regular diet -Recommend to hold on discharge for today Thank you for this consultation Physician Radiography Technician note has been reviewed by physician. Signing provider agrees with the documented findings, assessment, and plan of care. Past Medical History Past Medical History: Asthma, Dementia, GERD/Reflux, Hypertension, Memory Impairment, Prostate Disorder, Skin Disorder, Sleep Apnea/CPAP/BIPAP, Thyroid Disorder Additional Past Medical History / Comment(s): Pt states he has had a recent UTI treated with antibiotic, PUD, hiatal hernia, benign colon polyps, constipation, BPH, vertigo, peyronies disorder, iron anemia, GILBERTO without device, hypothyroid, acute kidney injury, psoriaisis. History of Any Multi-Drug Resistant Organisms: None Reported Past Surgical History: Orthopedic Surgery Additional Past Surgical History / Comment(s): Penile implant, EGD, colonoscopy, L hand surgery d/t injury, R hand trigger finger release. Past Anesthesia/Blood Transfusion Reactions: No Reported Reaction Past Psychological History: ADD/ADHD, Anxiety, Depression Additional Psychological History / Comment(s): Pt resides at [facility]. Pt states he has been needing more and more assistance and feels he is ready to go into a different type living situation. He mentioned [facility]. He uses no assistive device. He drives some. His medications are managed thru [facility]. Smoking Status: Former smoker Past Alcohol Use History: None Reported Additional Past Alcohol Use History / Comment(s): smoked [id number] 10 packs/month Past Drug Use History: None Reported - Past Family History Mother Family Medical History: No Reported History Additional Family Medical History / Comment(s): Mother lived to be 94 yrs old. Father Family Medical History: No Reported History Additional Family Medical History / Comment(s): Father lived to be 97 yrs old. Medications and Allergies Home Medications Medication Instructions Recorded Confirmed Type Cholecalciferol [Vitamin D3 (25 50 mcg PO HS 10/27/20 01/08/22 History Mcg = 1000 Iu)] Cyanocobalamin (Vitamin B-12) 1,000 mcg PO DAILY 10/27/20 01/08/22 History [Vitamin B-12] Donepezil [Aricept] 10 mg PO HS 10/27/20 01/08/22 History Melatonin 3 mg PO HS 10/27/20 01/08/22 History Memantine [Namenda] 10 mg PO BID 10/27/20 01/08/22 History Tiotropium Br/Olodaterol HCl 2 puff INHALATION RT-DAILY 10/27/20 01/08/22 History [Stiolto Respimat Inhal [place]] Albuterol Sulfate [Albuterol 2 puff PO RT-BID 03/13/21 01/08/22 History Sulfate Hfa] Mometasone Furoate [Asmanex 1 puff INHALATION RT-DAILY 03/13/21 01/08/22 History Inhaler] Venlafaxine HCl [Effexor XR] 75 mg PO HS 03/13/21 01/08/22 History amLODIPine [Norvasc] 10 mg PO DAILY 30 Days #30 tab 03/15/21 01/08/22 Rx Sennosides [Senokot] 8.6 mg PO HS 06/05/21 01/08/22 History busPIRone HCl [Buspar] 10 mg PO BID 06/05/21 01/08/22 History Famotidine [Pepcid] 40 mg PO DAILY 01/08/22 01/08/22 History LORazepam [Ativan] 1 mg PO BID 01/08/22 01/08/22 History Meloxicam [Mobic] 15 mg PO DIRECTED 01/08/22 01/08/22 History Oxybutynin Chloride [Ditropan] 5 mg PO DIRECTED 01/08/22 01/08/22 History Allergies Allergy/AdvReac Type Severity Reaction Status Date / Time shellfish derived Allergy Swelling Verified 01/08/22 15:22 Surgical - Exam Vital Signs Temp Pulse Resp BP Pulse Ox 97.9 F 61 18 123/62 96 01/08/22 12:22 01/08/22 12:22 01/08/22 12:22 01/08/22 12:22 01/08/22 12:22 Results - Labs 01/09/22 05:21 01/09/22 05:21 Microbiology - Last 24 Hours (Table) 01/10/22 11:00 Stool Culture - Preliminary Stool
--- NOTE | 2022-01-11 15:20 | P.PN ---
Subjective Progress Note Date: 01/11/22 This is a 76-year-old male who was recently admitted with changes in mental status also had some excessive diarrhea and is being closely monitored. Patient with history of dementia and has been evaluated by neurology. Patient continues with diarrhea and upset stomach and reports increased distention of gas and bloating. Will order CT abdomen pelvis. Awaiting stool cultures and will obtain blood cultures as well. Patient will be initiated on empiric antibiotics in the form of Levaquin and will await CT report. Patient currently resides at [facility] and social work following as patient also having significant weakness and decline in ADLs unable to care for himself and possible ECF being planned. Patient is afebrile denies chest pain or shortness of breath. Patient denies nausea or vomiting but continues to report abdominal distention with gas and bloating and continued diarrhea. 01/11/2022 Patient is seen and evaluated in follow-up this morning continues with abdominal pain with cramping and distention. Patient had computed tomography scan of the abdomen and pelvis which is showing rectal fecal impaction with perirectal edema and fecal impaction is new compared to old exam. Patient reports to having loose stools although no formed stools at this time. Patient continues with abdominal distention and extremely sensitive on palpation. Patient reports the tolerating diet although has decreased appetite with no reports of nausea or vomiting noted. General surgery consulted and appreciate input and recommendations. Review of systems: Constitutional: No reports of fatigue, fever, or chills Cardiovascular: No reports of chest pain or palpitations Respiratory: No reports of shortness of breath or cough GI: No reports of nausea, no reports of of vomiting, reports abdominal pain with gas distention and continued diarrhea : No reports of dysuria or retention Neurovascular: reports of generalized weakness All medications have been reviewed Active Medications Albuterol Sulfate (Albuterol Nebulized 2.5 Mg/3 Ml) 2.5 mg INHALATION RT-BID [facility] Last Admin: 01/11/22 07:31 Dose: 2.5 mg Amlodipine Besylate (Amlodipine 10 Mg Tab) 10 mg PO DAILY [facility] Last Admin: 01/11/22 09:39 Dose: 10 mg Buspirone HCl (Buspirone Hcl 10 Mg Tab) 10 mg PO BID [facility] Last Admin: 01/11/22 09:36 Dose: 10 mg Carbidopa/Levodopa (Carbidopa-Levodopa 25-100 Mg 1 Each Tab) 1 each PO BID [facility] Last Admin: 01/11/22 09:37 Dose: 1 each Cholecalciferol (Cholecalciferol 25 Mcg (1000 Iu) Tablet) 50 mcg PO HS [facility] Last Admin: 01/10/22 20:55 Dose: 50 mcg Cyanocobalamin (Cyanocobalamin 500 Mcg Tab) 1,000 mcg PO DAILY [facility] Last Admin: 01/11/22 09:51 Dose: Not Given Donepezil HCl (Donepezil 10 Mg Tab) 10 mg PO [facility] Last Admin: 01/10/22 20:56 Dose: 10 mg Famotidine (Famotidine 20 Mg Tab) 40 mg PO DAILY [facility] Last Admin: 01/11/22 09:37 Dose: 40 mg Fluticasone Propionate (Fluticasone 110 Mcg Inhaler) 1 puff INHALATION RT-BID [facility] Last Admin: 01/11/22 07:31 Dose: 1 puff Formoterol Fumarate (Formoterol Fumarate 20 Mcg/2 Ml Nebu) 20 mcg INHALATION RT-BID [facility] Last Admin: 01/11/22 07:31 Dose: 20 mcg Levofloxacin 500 mg/ IV (Solution) 100 mls @ 100 mls/hr IVPB Q24H [facility]; Protocol Last Admin: 01/11/22 12:43 Dose: 100 mls/hr Ipratropium [place] (Ipratropium 0.5 Mg/2.5 Ml Nebu) 0.5 mg INHALATION RT-QID [facility] Last Admin: 01/11/22 11:06 Dose: 0.5 mg Lactulose (Lactulose 20 Gm/30 Ml Cup) 30 gm PO Q1H [facility] Stop: 01/11/22 17:01 Last Admin: 01/11/22 14:49 Dose: 30 gm Lorazepam (Lorazepam 1 Mg Tab) 1 mg PO BID [facility] Last Admin: 01/11/22 09:38 Dose: 1 mg Melatonin (Melatonin 3 Mg Tablet) 3 mg PO [facility] Last Admin: 01/10/22 20:56 Dose: 3 mg Meloxicam (Meloxicam 7.5 Mg Tab) 15 mg PO DAILY [facility] Last Admin: 01/11/22 09:38 Dose: 15 mg Memantine (Memantine 10 Mg Tab) 10 mg PO BID [facility] Last Admin: 01/11/22 09:37 Dose: 10 mg Oxybutynin Chloride (Oxybutynin Chloride 5 Mg Tab) 5 mg PO QID [facility] Last Admin: 01/11/22 12:43 Dose: 5 mg Pantoprazole Sodium (Pantoprazole 40 Mg/10 Ml Vial) 40 mg IVP DAILY [facility] Last Admin: 01/11/22 09:36 Dose: 40 mg Senna (Sennosides 8.6 Mg Tab) 8.6 mg PO HS [facility] Last Admin: 01/10/22 20:56 Dose: 8.6 mg Venlafaxine HCl (Venlafaxine Hcl Er 75 Mg Cap) 75 mg PO HS [facility] Last Admin: 01/10/22 20:55 Dose: 75 mg PHYSICAL EXAMINATION: GENERAL: The patient is alert and oriented x2-3, thin built, elderly appearing male HEENT: Pupils are round and equally reacting to light. EOMI. no scleral icterus. No conjunctival pallor. Normocephalic, atraumatic. No pharyngeal erythema. No thyromegaly. CARDIOVASCULAR: S1 and S2 muffled PULMONARY: diminished breath sounds bilaterally with no wheezing or rhonchi noted. ABDOMEN: soft. Mildly tender on exam. Mildly distended, normoactive bowel sounds. No palpable organomegaly. MUSCULOSKELETAL: No joint swelling or deformity. EXTREMITIES: No cyanosis, clubbing, or pedal edema. NEUROLOGICAL: Gross neurological examination did not reveal any focal deficits. Diffuse weakness SKIN: No rashes. Assessment: Change in mental status and confusion Diarrhea, possible acute diarrheal disease, C. diff ruled out Rectal fecal impaction with perirectal edema is noted on CT Gait dysfunction, possible Parkinson's Dementia Abdominal pain with diarrhea and distention History of asthma not an exacerbation Gastroesophageal reflux disease Hypertension Decreased functionality in ADLs Sleep apnea Hypothyroidism History of anxiety/depression GI prophylaxis DVT prophylaxis Plan: Recommend to continue with current medications and management with neurology following. Patient has been seen and evaluated by PT/OT therapy recommending rehab and patient is agreeable as he currently resides at [facility] in an independent apartment although having decline most recently in ability to care for himself and perform ADLs. Patient is becoming more weak with increased gait dysfunction with memory impairment as well. Patient has been accepted at [facility] the [address] and is agreeable with this. Patient does follow with neurologist Dr. Naik in the outpatient setting and neurology is following currently. Patient being started on Sinemet. Patient continues with abdominal distention along with pain and gas with continued diarrhea and CT abdomen and pelvis mentioned previously and have consulted general surgery. Bedside disimpaction done and has ordered multiple enemas and lactulose until clear. Patient is continued on regular diet and will continue for now. Will continue with IV Levaquin empirically for now while awaiting for stool cultures. Recommend repeat labs in a.m. Due to multiple complex medical issues, prognosis is guarded. The impression and plan of care has been dictated by Silvia Krause, nurse practitioner as directed. Dr. Giovanni MD I have performed a history and examination and MDM of this patient, discussed the same with the dictator, and agree with the dictator's assessment and plan as written ,documented as a scribe. Based on total visit time, I have performed more than 50% of the visit. Any additional findings or plans will be noted. Objective - Vital Signs Vital signs: Vital Signs Temp 97.7 F 01/11/22 07:00 Pulse 64 01/11/22 11:24 Resp 17 01/11/22 09:38 BP 159/70 01/11/22 07:00 Pulse Ox 94 L 01/11/22 07:00 FiO2 Intake & Output 01/10/22 01/11/22 01/11/22 18:59 06:59 18:59 Intake Total 118 180 Output Total 600 Balance 118 -600 180 Intake: Oral 118 180 Output: Urine 600 Other: Voiding Method Toilet Urinal Urinal # Voids 2 2 - Labs CBC & Chem 7: 01/09/22 05:21 01/09/22 05:21 Labs: Microbiology - Last 24 Hours (Table) 01/10/22 11:00 Stool Culture - Preliminary Stool
[2022-01-11] MEDS: SENNOSIDES 8.6 MG TAB PO SCH (20:38)
[2022-01-11] MEDS: DONEPEZIL 10 MG TAB PO SCH (20:39)
[2022-01-11] MEDS: VENLAFAXINE HCL ER 75 MG CAP PO SCH (20:39)
[2022-01-11] MEDS: CHOLECALCIFEROL 25 MCG (1000 IU) TABLET PO SCH (20:39)
[2022-01-11] MEDS: MELATONIN 3 MG TABLET PO SCH (20:39)
[2022-01-12] MEDS: ALBUTEROL NEBULIZED 2.5 MG/3 ML INHALATION SCH ×2 (07:55→20:05)
[2022-01-12] MEDS: FORMOTEROL FUMARATE 20 MCG/2 ML NEBU INHALATION SCH ×2 (07:56→20:05)
[2022-01-12] MEDS: FLUTICASONE 110 MCG INHALER INHALATION SCH ×2 (07:58→20:05)
[2022-01-12] MEDS: IPRATROPIUM 0.5 MG/2.5 ML NEBU INHALATION SCH ×4 (07:58→20:05)
[2022-01-12] MEDS: MEMANTINE 10 MG TAB PO SCH ×2 (08:00→22:04)
[2022-01-12] MEDS: FAMOTIDINE 20 MG TAB PO SCH (08:01)
[2022-01-12] MEDS: MELOXICAM 7.5 MG TAB PO SCH (08:01)
[2022-01-12] MEDS: PANTOPRAZOLE 40 MG TABLET PO SCH (08:02)
[2022-01-12] MEDS: LORazepam 1 MG TAB PO SCH ×2 (08:02→22:04)
[2022-01-12] MEDS: OXYBUTYNIN CHLORIDE 5 MG TAB PO SCH ×4 (08:02→22:05)
[2022-01-12] MEDS: CYANOCOBALAMIN 500 MCG TAB PO SCH ×2 (08:02→08:22)
[2022-01-12] MEDS: CARBIDOPA-LEVODOPA 25-100 MG 1 EACH TAB PO SCH ×2 (08:02→22:04)
[2022-01-12] MEDS: amLODIPine 10 MG TAB PO SCH (08:02)
[2022-01-12] MEDS: busPIRone HCl 10 MG TAB PO SCH ×2 (08:20→22:03)
--- NOTE | 2022-01-12 10:56 | P.PN ---
Progress Note - Text Progress Note Date: 01/12/22 The patient was disimpacted yesterday. He then received lactulose soapsuds enemas. Multiple bowel movements yesterday. On exam vital signs appear stable. Abdomen soft. Fecal impaction resolved. Patient will be stable for discharge today.
[2022-01-12] MEDS ORDERED: LEVOFLOXACIN 500 MG TAB PO SCH (13:00)
[2022-01-12] MEDS: DONEPEZIL 10 MG TAB PO SCH (22:03)
[2022-01-12] MEDS: MELATONIN 3 MG TABLET PO SCH (22:04)
[2022-01-12] MEDS: CHOLECALCIFEROL 25 MCG (1000 IU) TABLET PO SCH (22:04)
[2022-01-12] MEDS: SENNOSIDES 8.6 MG TAB PO SCH (22:05)
[2022-01-12] MEDS: VENLAFAXINE HCL ER 75 MG CAP PO SCH (22:05)
[2022-01-13] MEDS: FORMOTEROL FUMARATE 20 MCG/2 ML NEBU INHALATION SCH ×2 (07:26→19:14)
[2022-01-13] MEDS: ALBUTEROL NEBULIZED 2.5 MG/3 ML INHALATION SCH ×2 (07:26→19:14)
[2022-01-13] MEDS: IPRATROPIUM 0.5 MG/2.5 ML NEBU INHALATION SCH ×4 (07:26→19:14)
[2022-01-13] MEDS: FLUTICASONE 110 MCG INHALER INHALATION SCH ×2 (07:27→19:15)
[2022-01-13] MEDS: PANTOPRAZOLE 40 MG TABLET PO SCH (08:21)
[2022-01-13] MEDS: amLODIPine 10 MG TAB PO SCH (08:21)
[2022-01-13] MEDS: FAMOTIDINE 20 MG TAB PO SCH (08:21)
[2022-01-13] MEDS: MELOXICAM 7.5 MG TAB PO SCH (08:22)
[2022-01-13] MEDS: busPIRone HCl 10 MG TAB PO SCH ×2 (08:22→21:53)
[2022-01-13] MEDS: OXYBUTYNIN CHLORIDE 5 MG TAB PO SCH ×4 (08:22→21:52)
[2022-01-13] MEDS: LORazepam 1 MG TAB PO SCH ×2 (08:22→21:52)
[2022-01-13] MEDS: MEMANTINE 10 MG TAB PO SCH ×2 (08:22→21:53)
[2022-01-13] MEDS: CARBIDOPA-LEVODOPA 25-100 MG 1 EACH TAB PO SCH ×2 (08:22→21:53)
[2022-01-13] MEDS: CYANOCOBALAMIN 500 MCG TAB PO SCH (08:23)
--- NOTE | 2022-01-13 13:07 | P.PN ---
Progress Note - Text Progress Note Date: 01/13/22 Patient remains stable. There is no sign of bowel obstruction. Abdomen soft nontender. Patient is stable for discharge from surgical standpoint
--- NOTE | 2022-01-13 14:20 | PN ---
PROGRESS NOTE SUBJECTIVE: This 76-year-old gentleman admitted with change in mental status also had fecal impaction:. No chest pain. No palpitations. No fever. Surgery evaluated the patient. The patient appears to be confused. PHYSICAL EXAMINATION: VITAL SIGNS: Pulse is 78, blood pressure is 150/ 69, AND respiration 18. CHEST: Clear to auscultation. CARDIOVASCULAR: S1, S2. ABDOMEN: Soft. NERVOUS SYSTEM: Nonfocal. LABS: Reviewed. ASSESSMENT: 1. Change in mental status and confusion. 2. Diarrhea, possible acute diarrheal disease. 3. Rectal fecal impaction dementia, multiple medical issues recommend to continue current management PT OT evaluation, otherwise closely follow with surgery. Guarded prognosis. MMODL / IJN: [id number] /
[2022-01-13 21:38] VITALS: RESP 16
[2022-01-13] MEDS: SENNOSIDES 8.6 MG TAB PO SCH (21:52)
[2022-01-13] MEDS: MELATONIN 3 MG TABLET PO SCH (21:52)
[2022-01-13] MEDS: CHOLECALCIFEROL 25 MCG (1000 IU) TABLET PO SCH (21:52)
[2022-01-13] MEDS: VENLAFAXINE HCL ER 75 MG CAP PO SCH (21:53)
[2022-01-13] MEDS: DONEPEZIL 10 MG TAB PO SCH (21:53)
--- NOTE | 2022-01-13 22:34 | P.PN ---
Subjective Progress Note Date: 01/12/22 Patient was seen for a follow-up. Patient denies headache. Patient denies dizziness. Patient has some diarrhea. Patient tolerating Sinemet well with no side effects. Patient states that diarrhea started before he started Sinemet. No hallucinations reported. Objective - Vital Signs Vital signs: Vital Signs Temp 98 F 01/12/22 07:00 Pulse 74 01/12/22 11:47 Resp 18 01/12/22 07:00 BP 156/69 01/12/22 07:00 Pulse Ox 97 01/12/22 07:00 FiO2 Intake & Output 01/11/22 01/12/22 01/12/22 18:59 06:59 18:59 Intake Total 420 120 Balance 420 120 Intake: Oral 420 120 Other: Voiding Method Urinal Urinal Diaper Diaper # Voids 1 4 1 # Bowel Movements 4 - Exam Patient is alert and awake. Patient is extremely hard of hearing. Patient's tone has improved in the arms, mildly increased bilaterally. No tremors at rest. Bradykinesia appears slightly better possibly. 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 Patient not taking any medication which can produce parkinsonism. No evidence of NPH on CT head. 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 Plan: * Continue Sinemet 25/100, one tablet twice a day. Patient's tone is slightly better. May increase the dose to 3 times a day if needed. Patient informed to watch for any hallucinations or nausea or dizziness. * Patient may benefit from outpatient KRISATL scan to confirm Parkinson's/parkinsonism. * PT OT, evaluate gait. * Patient has right orbital mass, which has grown in size as compared to the study from 2019. May need MRI of the brain/orbits with and without contrast as an outpatient. * B12 1741, folate 10.50. TSH was normal 0.853 on 03/15/2021. * Neurologically clear for discharge. Recommend patient follow up with his neurologist in 2-4 weeks.
[2022-01-14] MEDS: ALBUTEROL NEBULIZED 2.5 MG/3 ML INHALATION SCH (07:21)
[2022-01-14] MEDS: FLUTICASONE 110 MCG INHALER INHALATION SCH (07:21)
[2022-01-14] MEDS: IPRATROPIUM 0.5 MG/2.5 ML NEBU INHALATION SCH ×3 (07:21→15:54)
[2022-01-14] MEDS: FORMOTEROL FUMARATE 20 MCG/2 ML NEBU INHALATION SCH (07:21)
[2022-01-14] MEDS: FAMOTIDINE 20 MG TAB PO SCH (08:00)
[2022-01-14] MEDS: MELOXICAM 7.5 MG TAB PO SCH (08:09)
[2022-01-14] MEDS: LORazepam 1 MG TAB PO SCH (08:09)
[2022-01-14] MEDS: OXYBUTYNIN CHLORIDE 5 MG TAB PO SCH ×2 (08:10→14:16)
[2022-01-14] MEDS: MEMANTINE 10 MG TAB PO SCH (08:10)
[2022-01-14] MEDS: CYANOCOBALAMIN 500 MCG TAB PO SCH (08:10)
[2022-01-14] MEDS: amLODIPine 10 MG TAB PO SCH (08:10)
[2022-01-14] MEDS: busPIRone HCl 10 MG TAB PO SCH (08:10)
[2022-01-14] MEDS: PANTOPRAZOLE 40 MG TABLET PO SCH (08:10)
[2022-01-14 08:35] VITALS: BP 144/58; TEMP 97.5
--- NOTE | 2022-01-14 08:35 | PN ---
PROGRESS NOTE SUBJECTIVE: This 76-year-old gentleman was admitted with diarrhea and change in mental status, is being closely monitored. Diarrhea seem to be improving. No chest pain. No palpitation. OBJECTIVE: VITAL SIGNS: Pulse is 52, blood pressure , respirations 18. CHEST: Clear to auscultation. CARDIOVASCULAR: S1, S2. ABDOMEN: Soft. NERVOUS SYSTEM: No focal deficits. LABORATORY DATA: Reviewed. ASSESSMENT: 1. Change in mental status and confusion. 2. Diarrhea, possible acute diarrheal disease. 3. Rectal fecal impaction. 4. Dementia. 5. Multiple medical problems. RECOMMENDATIONS: I recommend to continue with current medications and symptomatic treatment. Otherwise, PT/OT evaluation, possible ECF rehab. Closely follow with Surgery. Guarded prognosis. Further recommendations to follow. MMSANJEEVL / NIRANJANN: [id number] /
[2022-01-14] MEDS: CARBIDOPA-LEVODOPA 25-100 MG 1 EACH TAB PO SCH (08:54)
[2022-01-14 10:30] VITALS: PULSE 52
--- NOTE | 2022-01-14 14:09 | P.PN ---
Subjective Progress Note Date: 01/14/22 CHIEF COMPLAINT: Fecal impaction HISTORY OF PRESENT ILLNESS: Surgical service following in regards to patient's fecal impaction. Patient sitting at bedside chair. Tolerating diet. He has been having bowel movements. Denies any nausea or vomiting. Afebrile. Patient scheduled to be discharged to [facility] today. PHYSICAL EXAM: VITAL SIGNS: Reviewed. GENERAL: Well-developed in no acute distress. HEENT: No sclera icterus. Extraocular movements grossly intact. Moist buccal mucosa. Head is atraumatic, normocephalic. ABDOMEN: Soft. Nondistended. Nontender. NEUROLOGIC: Alert and oriented. Cranial nerves II through XII grossly intact. ASSESSMENT: 1. Fecal impaction status post disimpaction PLAN: -Continue a good bowel regimen at discharge -Patient is stable for discharge from surgical standpoint -Continue regular diet Physician Water Resource Manager note has been reviewed by physician. Signing provider agrees with the documented findings, assessment, and plan of care. Objective - Vital Signs Vital signs: Vital Signs Temp 97.5 F L 01/14/22 07:00 Pulse 52 L 01/14/22 10:40 Resp 16 01/14/22 07:00 BP 144/58 01/14/22 07:00 Pulse Ox 99 01/14/22 07:00 FiO2 Intake & Output 01/13/22 01/14/22 01/14/22 18:59 06:59 18:59 Intake Total 240 50 Balance 240 50 Intake: Oral 240 50 Other: # Voids 2 # Bowel Movements 1 - Labs CBC & Chem 7: 01/09/22 05:21 01/09/22 05:21 Labs: Microbiology - Last 24 Hours (Table) 01/10/22 11:00 Stool Culture - Final Stool 01/10/22 12:11 Blood Culture - Preliminary Blood No Growth after 72 hours
--- NOTE | 2022-01-14 14:55 | P.DS ---
Providers Date of admission: 01/10/22 12:47 Expected date of discharge: 01/14/22 Attending physician: Skylar Davila Consults: 01/08/22 16:56 Consult Physician Routine Consulting Provider: Essie Thapa Consult Reason/Comments: parkinsons Do you want consulting provider notified?: Yes 01/11/22 07:05 Consult Physician Urgent Consulting Provider: Marcin Topete Consult Reason/Comments: fecal impaction with diarrhea Do you want consulting provider notified?: Yes Primary care physician: Alec Craig Hospital Course: Final diagnosis Change in mental status and confusion Diarrhea, possible acute diarrheal disease, C. diff ruled out Rectal fecal impaction with perirectal edema is noted on CT, improved Gait dysfunction, possible Parkinson's Dementia Abdominal pain with diarrhea and distention History of asthma not an exacerbation Gastroesophageal reflux disease Hypertension Decreased functionality in ADLs Sleep apnea Hypothyroidism History of anxiety/depression GI prophylaxis DVT prophylaxis Discharge disposition Patient is being discharged in a stable condition with guarded prognosis to [facility] . Patient will follow-up with Dr. Prajapati in the outpatient setting upon discharge. Patient to follow-up with his neurologist outpatient area Total time taken is greater than 35 minutes. Hospital course This is a 76year-old male who was recently admitted with weakness and dehydration with multiple episodes of diarrhea and being closely monitored. Patient also with some changes in mental status and was evaluated by neurology. Patient with a history of dementia and possible Parkinson's being started on Sinemet recommend to continue with outpatient follow-up with his neurologist. Patient did have continued diarrhea although CT abdomen showed some fecal impaction which was disimpacted and patient was given a series of enemas with no further abdominal pain noted. No signs of obstruction noted per surgery. Currently no reports of chest pain, shortness of breath, or palpitations. Patient is afebrile. No reports of nausea or vomiting and patient is tolerating diet. Patient will be going to [facility] today. Guarded prognosis Physical exam: Gen: This is a 76-year-old male awake, alert and oriented 2-3, well-developed, well-nourished HEENT: Head is atraumatic, normocephalic. Pupils equal, round. Sclerae is anicteric. NECK: Supple. No JVD. No lymphadenopathy. No thyromegaly. LUNGS: Clear to auscultation. No wheezes or rhonchi. No intercostal retractions. HEART: Regular rate and rhythm. No murmur. ABDOMEN: Soft. Bowel sounds are present. No masses. No tenderness. EXTREMITIES: No pedal edema. No calf tenderness. NEUROLOGICAL: Patient is awake, alert and oriented x3. Cranial nerves 2 through 12 are grossly intact. Diffusely weak Please refer to medication reconciliation sheet for a list of medications. The impression and plan of care has been dictated by Silvia Krause, Nurse Practitioner as directed. Dr. Benja MD I have performed a history and examination and MDM of this patient, discussed the same with the dictator, and agree with the dictator's assessment and plan as written ,documented as a scribe. Based on total visit time, I have performed more than 50% of the visit. Patient Condition at Discharge: Fair Plan - Discharge Summary Discharge Rx Participant: No New Discharge Prescriptions: New Pantoprazole [Protonix] 40 mg PO AC-BRKFST tab Carbidopa-Levodopa 25-100 mg [Sinemet 25-100 mg] 1 each PO BID tab Continue Tiotropium Br/Olodaterol HCl [Stiolto Respimat Inhal [place]] 2 puff INHALATION RT-DAILY Melatonin 3 mg PO HS Donepezil [Aricept] 10 mg PO HS Cyanocobalamin (Vitamin B-12) [Vitamin B-12] 1,000 mcg PO DAILY Albuterol Sulfate [Albuterol Sulfate Hfa] 2 puff PO RT-BID Famotidine [Pepcid] 40 mg PO DAILY Meloxicam [Mobic] 15 mg PO DIRECTED Cholecalciferol [Vitamin D3 (25 Mcg = 1000 Iu)] 50 mcg PO HS Memantine [Namenda] 10 mg PO BID Venlafaxine HCl [Effexor XR] 75 mg PO HS Mometasone Furoate [Asmanex Inhaler] 1 puff INHALATION RT-DAILY amLODIPine [Norvasc] 10 mg PO DAILY 30 Days #30 tab busPIRone HCl [Buspar] 10 mg PO BID Sennosides [Senokot] 8.6 mg PO HS Oxybutynin Chloride [Ditropan] 5 mg PO DIRECTED LORazepam [Ativan] 1 mg PO BID #4 tab Discharge Medication List Cholecalciferol [Vitamin D3 (25 Mcg = 1000 Iu)] 50 mcg PO HS 10/27/20 [History] Cyanocobalamin (Vitamin B-12) [Vitamin B-12] 1,000 mcg PO DAILY 10/27/20 [History] Donepezil [Aricept] 10 mg PO HS 10/27/20 [History] Melatonin 3 mg PO HS 10/27/20 [History] Memantine [Namenda] 10 mg PO BID 10/27/20 [History] Tiotropium Br/Olodaterol HCl [Stiolto Respimat Inhal [place]] 2 puff INHALATION RT-DAILY 10/27/20 [History] Albuterol Sulfate [Albuterol Sulfate Hfa] 2 puff PO RT-BID 03/13/21 [History] Mometasone Furoate [Asmanex Inhaler] 1 puff INHALATION RT-DAILY 03/13/21 [History] Venlafaxine HCl [Effexor XR] 75 mg PO HS 03/13/21 [History] amLODIPine [Norvasc] 10 mg PO DAILY 30 Days #30 tab 03/15/21 [Rx] Sennosides [Senokot] 8.6 mg PO HS 06/05/21 [History] busPIRone HCl [Buspar] 10 mg PO BID 06/05/21 [History] Famotidine [Pepcid] 40 mg PO DAILY 01/08/22 [History] Meloxicam [Mobic] 15 mg PO DIRECTED 01/08/22 [History] Oxybutynin Chloride [Ditropan] 5 mg PO DIRECTED 01/08/22 [History] Carbidopa-Levodopa 25-100 mg [Sinemet 25-100 mg] 1 each PO BID tab 01/14/22 [Rx] LORazepam [Ativan] 1 mg PO BID #4 tab 01/14/22 [Rx] Pantoprazole [Protonix] 40 mg PO AC-BRKFST tab 01/14/22 [Rx] Follow up Appointment(s)/Referral(s): Alec Craig MD [Primary Care Provider] - 1-2 days Activity/Diet/Wound Care/Special Instructions: Activity as tolerated Patient is going to [facility] on the [place] Continue current medications Continue with regular diet and continue with yogurts 3 times a day with meals Discharge Disposition: TRANSFER TO SNF/ECF
== END 2022-01-14 16:25 | DRG 392 ==
LOC: EC 12:20 → 6NMEDSUR 15:27 → OBSVTOIN 01-10 12:47
PROVIDERS: ADMIT Hospitalist; ATTEND Hospitalist
DX: R19.7 Diarrhea, unspecified (principal); G20 Parkinson's disease; F02.80 Dementia in other diseases classified elsewhere, unspecified severity, without behavioral disturbance, psychotic disturbance, mood disturbance, and anxiety; I10 Essential (primary) hypertension; Z20.822 Contact with and (suspected) exposure to COVID-19; R26.9 Unspecified abnormalities of gait and mobility; D64.9 Anemia, unspecified; J45.909 Unspecified asthma, uncomplicated; G47.33 Obstructive sleep apnea (adult) (pediatric); K21.9 Gastro-esophageal reflux disease without esophagitis; N40.0 Benign prostatic hyperplasia without lower urinary tract symptoms; K44.9 Diaphragmatic hernia without obstruction or gangrene; E03.9 Hypothyroidism, unspecified; Z79.890 Hormone replacement therapy; H91.90 Unspecified hearing loss, unspecified ear; R41.89 Other symptoms and signs involving cognitive functions and awareness; N48.6 Induration penis plastica; F32.A Depression, unspecified; F41.9 Anxiety disorder, unspecified; F90.9 Attention-deficit hyperactivity disorder, unspecified type; Z91.013 Allergy to seafood; Z79.899 Other long term (current) drug therapy; Z87.11 Personal history of peptic ulcer disease; Z87.19 Personal history of other diseases of the digestive system; Z87.440 Personal history of urinary (tract) infections; K56.41 Fecal impaction; Z87.891 Personal history of nicotine dependence; G47.30 Sleep apnea, unspecified
CPT/HCPCS: 36415; 70450; 74176; 80048; 80053; 81001; 82150; 82607; 82746; 83630; 83690; 85025; 87040; 87045; 87046; 87324; 94640; 96360; 96361; 99285

== ENCOUNTER 2022-01-28 21:41 | Emergency (ER) | payer MEDICARE, OTHER ==
[2022-01-28 21:55] VITALS: RESP 15; TEMP 97.5
[2022-01-28] MEDS ORDERED: SODIUM CHLORIDE 0.9% 1,000 ML IV STA (22:02)
--- NOTE | 2022-01-28 22:05 | ED ---
General Adult HPI - General Chief complaint: Recheck/Abnormal Lab/Rx Stated complaint: Abnormal labs Time Seen by Provider: 01/28/22 21:45 Source: EMS, RN notes reviewed Mode of arrival: EMS Limitations: altered mental status - History of Present Illness Initial comments: This is a pleasant 76-year-old male with a history dementia, [facility] a local [facility] after being diagnosed with COVID-19 for 5 days ago and having baseline laboratory work done this morning. Patient had a d-dimer elevated at 1.28. For this reason he was sent here for evaluation. Patient himself is not complaining of any respiratory distress or chest pain. States he feels a bit fatigued. POSITIVE fatigue. No headache, no fever or chills, no changes in vision or heari ng, no sore throat or difficulty with speech, no neck pain, no chest pain or shortness of breath, no abdominal pain, no nausea or vomiting, no changes in urination or bowel movements, no numbness or tingling, no extremity pain, no skin rashes or lesions. Past medical, surgical, social, and family history reviewed. - Related Data Home Medications Medication Instructions Recorded Confirmed Cholecalciferol [Vitamin D3 (25 50 mcg PO HS 10/27/20 01/08/22 Mcg = 1000 Iu)] Cyanocobalamin (Vitamin B-12) 1,000 mcg PO DAILY 10/27/20 01/08/22 [Vitamin B-12] Donepezil [Aricept] 10 mg PO HS 10/27/20 01/08/22 Melatonin 3 mg PO HS 10/27/20 01/08/22 Memantine [Namenda] 10 mg PO BID 10/27/20 01/08/22 Tiotropium Br/Olodaterol HCl 2 puff INHALATION RT-DAILY 10/27/20 01/08/22 [Stiolto Respimat Inhal [place]] Albuterol Sulfate [Albuterol 2 puff PO RT-BID 03/13/21 01/08/22 Sulfate Hfa] Mometasone Furoate [Asmanex 1 puff INHALATION RT-DAILY 03/13/21 01/08/22 Inhaler] Venlafaxine HCl [Effexor XR] 75 mg PO HS 03/13/21 01/08/22 Sennosides [Senokot] 8.6 mg PO HS 06/05/21 01/08/22 busPIRone HCl [Buspar] 10 mg PO BID 06/05/21 01/08/22 Famotidine [Pepcid] 40 mg PO DAILY 01/08/22 01/08/22 Meloxicam [Mobic] 15 mg PO DIRECTED 01/08/22 01/08/22 Oxybutynin Chloride [Ditropan] 5 mg PO DIRECTED 01/08/22 01/08/22 Previous Rx's Medication Instructions Recorded amLODIPine [Norvasc] 10 mg PO DAILY 30 Days #30 tab 03/15/21 Carbidopa-Levodopa 25-100 mg 1 each PO BID tab 01/14/22 [Sinemet 25-100 mg] LORazepam [Ativan] 1 mg PO BID #4 tab 01/14/22 Pantoprazole [Protonix] 40 mg PO AC-BRKFST tab 01/14/22 Allergies Allergy/AdvReac Type Severity Reaction Status Date / Time shellfish derived Allergy Swelling Verified 01/28/22 21:48 Review of Systems ROS Statement: Those systems with pertinent positive or pertinent negative responses have been documented in the HPI. ROS Other: All systems not noted in ROS Statement are negative. Past Medical History Past Medical History: Asthma, Dementia, GERD/Reflux, Hypertension, Memory Impairment, Prostate Disorder, Skin Disorder, Sleep Apnea/CPAP/BIPAP, Thyroid Disorder Additional Past Medical History / Comment(s): Pt states he has had a recent UTI treated with antibiotic, PUD, hiatal hernia, benign colon polyps, constipation, BPH, vertigo, peyronies disorder, iron anemia, GILBERTO without device, hypothyroid, acute kidney injury, psoriaisis. History of Any Multi-Drug Resistant Organisms: None Reported Past Surgical History: Orthopedic Surgery Additional Past Surgical History / Comment(s): Penile implant, EGD, colonoscopy, L hand surgery d/t injury, R hand trigger finger release. Past Anesthesia/Blood Transfusion Reactions: No Reported Reaction Past Psychological History: ADD/ADHD, Anxiety, Depression Smoking Status: Former smoker Past Alcohol Use History: None Reported Past Drug Use History: None Reported - Past Family History Mother Family Medical History: No Reported History Additional Family Medical History / Comment(s): Mother lived to be 94 yrs old. Father Family Medical History: No Reported History Additional Family Medical History / Comment(s): Father lived to be 97 yrs old. General Exam - General Exam Comments Initial Comments: Deconditioned appearing 76-year-old male in no acute distress. Vital signs reviewed. Patient does not appear to be ill or toxic. No increased work of breathing. Mentation baseline. Limitations: altered mental status General appearance: alert, in no apparent distress Head exam: Present: atraumatic, normocephalic, normal inspection Eye exam: Present: normal appearance, PERRL, EOMI. Absent: scleral icterus, con junctival injection, periorbital swelling ENT exam: Present: normal exam, normal oropharynx, mucous membranes moist, normal external ear exam. Absent: mucous membranes dry Neck exam: Present: normal inspection, full ROM. Absent: tenderness, meningi smus, lymphadenopathy Respiratory exam: Present: normal lung sounds bilaterally. Absent: respiratory distress, wheezes, rales, rhonchi, stridor, chest wall tenderness, accessory muscle use, decreased breath sounds, prolonged expiratory Cardiovascular Exam: Present: regular rate, normal rhythm, normal heart sounds. Absent: systolic murmur, diastolic murmur, rubs, gallop, clicks GI/Abdominal exam: Present: soft, normal bowel sounds. Absent: distended, tenderness, guarding, rebound, rigid Extremities exam: Present: normal inspection, full ROM, normal capillary refill. Absent: tenderness, pedal edema, joint swelling, calf tenderness Back exam: Present: normal inspection Neurological exam: Present: alert, oriented X3, CN II-XII intact Psychiatric exam: Present: normal affect, normal mood Skin exam: Present: warm, dry, intact, normal color. Absent: rash Course Vital Signs 01/28/22 21:48 Temperature 97.5 F L Pulse Rate 54 L Respiratory 15 Rate Blood Pressure 150/66 O2 Sat by Pulse 97 Oximetry - Reevaluation(s) Reevaluation #1: 01/28/22 23:36 Patient's d-dimer here was normal. Patient was reevaluated and is in no acute distress. Portable x-ray ordered for completeness state. We'll plan to [facility] the patient [facility]. EKG Findings - EKG Comments: EKG Findings:: [place] [address] reveals sinus bradycardia with first degree AV block. Right bundle branch block. VT interval of 226 ms. QRS duration 161 ms. QTC also prolongated at 467 ms. Left axis deviation. When compared to the previous study from 2020 no significant change. No evidence of acute ST elevation or ST depression. Medical Decision Making - Medical Decision Making Patient in no distress, has known COVID-19, sent to the ER for a d-dimer 1.28. Noted the patient is DO NOT RESUSCITATE. Patient really had no acute changes on workup here today. D-dimer was negative. Chest x-ray did not show any adverse events. Patient was in no distress. The case was discussed in detail with ED attending physician. Presentation, findings, treatment plan discussed in detail. Sr. Director Product Management Dr. Oliver - Lab Data Result diagrams: 01/28/22 22:32 01/28/22 22:32 Lab Results 01/28/22 01/28/22 01/28/22 Range/Units 22:32 22:32 22:32 WBC 5.1 (3.8-10.6) k/uL RBC 4.79 (4.30-5.90) m/uL Hgb 14.2 (13.0-17.5) gm/dL Hct 42.5 (39.0-53.0) % MCV 88.7 (80.0-100.0) fL MCH 29.6 (25.0-35.0) pg MCHC 33.4 (31.0-37.0) g/dL RDW 13.0 (11.5-15.5) % Plt Count 179 (150-450) k/uL MPV 7.7 Neutrophils % 74 % Lymphocytes % 15 % Monocytes % 7 % Eosinophils % 2 % Basophils % 0 % Neutrophils # 3.8 (1.3-7.7) k/uL Lymphocytes # 0.8 L (1.0-4.8) k/uL Monocytes # 0.4 (0-1.0) k/uL Eosinophils # 0.1 (0-0.7) k/uL Basophils # 0.0 (0-0.2) k/uL PT 9.9 (9.0-12.0) sec INR 0.9 (<1.2) D-Dimer 0.24 (<0.60) mg/L FEU Sodium 138 (137-145) mmol/L Potassium 4.5 (3.5-5.1) mmol/L Chloride 101 (98-107) mmol/L Carbon Dioxide 30 (22-30) mmol/L Anion Gap 7 mmol/L BUN 34 H (9-20) mg/dL Creatinine 0.93 (0.66-1.25) mg/dL Est GFR (CKD-EPI)AfAm >90 (>60 ml/min/1.73 sqM) Est GFR (CKD-EPI)NonAf 79 (>60 ml/min/1.73 sqM) Glucose 91 (74-99) mg/dL Calcium 8.3 L (8.4-10.2) mg/dL Magnesium 2.0 (1.6-2.3) mg/dL Total Bilirubin 0.6 (0.2-1.3) mg/dL AST 20 (17-59) U/L ALT 8 (4-49) U/L Alkaline Phosphatase 76 (38-126) U/L Troponin I (0.000-0.034) ng/mL Total Protein 5.6 L (6.3-8.2) g/dL Albumin 3.4 L (3.5-5.0) g/dL 01/28/22 Range/Units 22:32 WBC (3.8-10.6) k/uL RBC (4.30-5.90) m/uL Hgb (13.0-17.5) gm/dL Hct (39.0-53.0) % MCV (80.0-100.0) fL MCH (25.0-35.0) pg MCHC (31.0-37.0) g/dL RDW (11.5-15.5) % Plt Count (150-450) k/uL MPV Neutrophils % % Lymphocytes % % Monocytes % % Eosinophils % % Basophils % % Neutrophils # (1.3-7.7) k/uL Lymphocytes # (1.0-4.8) k/uL Monocytes # (0-1.0) k/uL Eosinophils # (0-0.7) k/uL Basophils # (0-0.2) k/uL PT (9.0-12.0) sec INR (<1.2) D-Dimer (<0.60) mg/L FEU Sodium (137-145) mmol/L Potassium (3.5-5.1) mmol/L Chloride (98-107) mmol/L Carbon Dioxide (22-30) mmol/L Anion Gap mmol/L BUN (9-20) mg/dL Creatinine (0.66-1.25) mg/dL Est GFR (CKD-EPI)AfAm (>60 ml/min/1.73 sqM) Est GFR (CKD-EPI)NonAf (>60 ml/min/1.73 sqM) Glucose (74-99) mg/dL Calcium (8.4-10.2) mg/dL Magnesium (1.6-2.3) mg/dL Total Bilirubin (0.2-1.3) mg/dL AST (17-59) U/L ALT (4-49) U/L Alkaline Phosphatase (38-126) U/L Troponin I <0.012 (0.000-0.034) ng/mL Total Protein (6.3-8.2) g/dL Albumin (3.5-5.0) g/dL - Radiology Data Radiology results: pending (No acute findings as read by me. Patient does have what appears be kyphoscoliosis with some chronic appearing changes. Compared to last x-ray was no significant change. Awaiting radiology interpretation), im age reviewed Disposition Clinical Impression: COVID-19 Disposition: HOME SELF-CARE Condition: Good Additional Instructions: SELF QUARANTINE DISCHARGE: As you are at risk for symptoms due to coronavirus, please stay home and stay away from others as much as possible. Please maintain social distance of 6 feet if possible. You should not return to work until at least 3 days (72 hours) have passed since recovery of symptoms. This defined as resolution of fever without the use of fever reducing medicines and improvement in respiratory symptoms (e.g,, cough, shortness of breath) Isolation can end at least 5 days after symptom onset and after fever ends for 24 hours (without the use of fever-reducing medication) and symptoms are improving, if these people can continue to properly wear a well-fitted mask around others for 5 more days after the 5-day isolation period. If you're still having symptoms at the end of 5 day period, isolate for an additional 5 days. More information about what to do if you are sick can be found on the CDC website at https://www.cdc.gov/ coronavirus/2019-ncov/hq-prk-yvj-sick/povxk-ifxy-xsib.html Expect the symptoms to last for 7-14 days from onset. Use acetaminophen (Tylenol) as needed for discomfort. You can take a maximum of 1 gram every 6 hours for discomfort, with your total dose in 24 hours not exceeding 4 grams. Be sure to maintain hydration. Drink continuous water and/or items high in vitamin C, such as orange juice and/or lemonade. For a cough you may take Mucinex or Robitussin. Also consider the use of Vicks Vapor Rub or your chest when you sleep. Use a humidifier that is cleaned frequently, in the bedroom at night. For Nausea /Vomiting/Diarrhea associated with your Illness: o Small frequent sips of room temperature liquids. o Diet: [employer] Foods - If you are still experiencing discomfort and/or nausea please slowly advancing your diet using the BRAT Diet = bananas, rice, apples/apple sauce, toast. o With diarrhea avoid any dairy for 48 hours after symptoms resolved. o Continue with activity as tolerated. If your symptoms do get worse and you believe that the upper respiratory infection has developed into something else, such as pneumonia or severe dehydration, please return to the emergency department or follow-up with your primary care. But expect to be symptomatic for the days as indicated above Follow-up with the [facility] attending physician without fail within the next 24 hours. Is patient prescribed a controlled substance at d/c from ED?: No Referrals: Amadou Prajapati MD [Primary Care Provider] - As Soon As Possible Leticia Contreras MD [STAFF PHYSICIAN] - As Soon As Possible Time of Disposition: 23:55
[2022-01-28 22:42] LABS: Basophils % (A) 0 %; Eosinophils # (A) 0.1 k/uL (0-0.7); Eosinophils % (A) 2 %; HCT 42.5 % (39.0-53.0); HGB 14.2 gm/dL (13.0-17.5); Lymphocytes # (A) 0.8 k/uL (1.0-4.8); Lymphocytes % (A) 15 %; MCH 29.6 pg (25.0-35.0); MCHC 33.4 g/dL (31.0-37.0); MCV 88.7 fL (80.0-100.0); Mean Platelet Volume 7.7; Monocytes # (A) 0.4 k/uL (0-1.0); Monocytes % (A) 7 %; Neutrophils # (A) 3.8 k/uL (1.3-7.7); Neutrophils % (A) 74 %; Platelet Count 179 k/uL (150-450); RBC 4.79 m/uL (4.30-5.90); WBC 5.1 k/uL (3.8-10.6)
[2022-01-28 22:55] LABS: INR 0.9 (<1.2); Prothrombin Time 9.9 sec (9.0-12.0)
[2022-01-28 22:58] LABS: ALT 8 U/L (4-49); AST 20 U/L (17-59); African American GFR (CKD) >90 (>60 ml/min/1.73 sqM); Albumin 3.4 g/dL (3.5-5.0); Alkaline Phosphatase 76 U/L (38-126); Anion Gap 7 mmol/L; Blood Urea Nitrogen 34 mg/dL (9-20); Calcium 8.3 mg/dL (8.4-10.2); Carbon Dioxide 30 mmol/L (22-30); Chloride 101 mmol/L (98-107); Glucose 91 mg/dL (74-99); Non-African American GFR(CKD) 79 (>60 ml/min/1.73 sqM); Potassium 4.5 mmol/L (3.5-5.1); Sodium 138 mmol/L (137-145); Total Bilirubin 0.6 mg/dL (0.2-1.3); Total Protein 5.6 g/dL (6.3-8.2)
--- NOTE | 2022-01-28 23:54 | XR ---
EXAMINATION TYPE: XR chest 1V portable DATE OF EXAM: 01/28/2022 COMPARISON: 03/15/2021 HISTORY: Pneumonia. Pain TECHNIQUE: Single view FINDINGS: Heart is normal. Lungs are clear of consolidation. There are no hilar masses. There is a mi nimal infiltrate lateral left lung base. No heart failure. There are chest leads. Bony thorax is inta ct. IMPRESSION: Small infiltrate or atelectasis lateral left lung base. Normal heart. No adverse change o verall compared to old exam.
[2022-01-29 03:06] VITALS: BP 144/68; PULSE 71
== END 2022-01-29 03:07 | disposition home or self-care (01) ==
LOC: EC 21:41
DX: U07.1 COVID-19 (principal); I10 Essential (primary) hypertension; J45.909 Unspecified asthma, uncomplicated; K21.9 Gastro-esophageal reflux disease without esophagitis; G47.30 Sleep apnea, unspecified; E03.9 Hypothyroidism, unspecified; F90.9 Attention-deficit hyperactivity disorder, unspecified type; F41.9 Anxiety disorder, unspecified; F32.A Depression, unspecified; Z87.891 Personal history of nicotine dependence; Z79.51 Long term (current) use of inhaled steroids; Z79.899 Other long term (current) drug therapy; Z79.83 Long term (current) use of bisphosphonates; Z91.013 Allergy to seafood
CPT/HCPCS: 36415; 71045; 80053; 83735; 84484; 85025; 85379; 85610; 93005; 99284

== ENCOUNTER 2022-04-27 18:42 | Emergency (ER) | payer MEDICARE, OTHER ==
[2022-04-27 18:52] VITALS: TEMP 97.7
[2022-04-27] MEDS ORDERED: SODIUM CHLORIDE 0.9% 1,000 ML IV STA (19:05)
--- NOTE | 2022-04-27 19:07 | ED ---
General Adult HPI - General Chief complaint: Syncope Stated complaint: syncope Time Seen by Provider: 04/27/22 18:50 Source: patient, EMS Mode of arrival: EMS Limitations: altered mental status - History of Present Illness Initial comments: 76-year-old male with past medical history of dementia, hypertension who presents emergency department after questionable syncopal episode. Patient states that he was in the hallway with his walker when he passed out and fell to the ground. He denies hitting his head. Only brief loss of consciousness. He denies any neck or back pain. He was able to get up on his own and begin ambulating once again. Staff states that they saw him shaking and were questioning whether he had a seizure. They believe that he did hit his head. Does not take any blood thinners. He arrives and is back to his normal baseline status. Denies any weakness. No headaches or visual changes. No chest or back pain. No shortness of breath. No other alleviating, precipitating or modifying factors - Related Data Home Medications Medication Instructions Recorded Confirmed Cholecalciferol [Vitamin D3 (25 50 mcg PO HS 10/27/20 01/08/22 Mcg = 1000 Iu)] Cyanocobalamin (Vitamin B-12) 1,000 mcg PO DAILY 10/27/20 01/08/22 [Vitamin B-12] Donepezil [Aricept] 10 mg PO HS 10/27/20 01/08/22 Melatonin 3 mg PO HS 10/27/20 01/08/22 Memantine [Namenda] 10 mg PO BID 10/27/20 01/08/22 Tiotropium Br/Olodaterol HCl 2 puff INHALATION RT-DAILY 10/27/20 01/08/22 [Stiolto Respimat Inhal Aline] Albuterol Sulfate [Albuterol 2 puff PO RT-BID 03/13/21 01/08/22 Sulfate Hfa] Mometasone Furoate [Asmanex 1 puff INHALATION RT-DAILY 03/13/21 01/08/22 Inhaler] Venlafaxine HCl [Effexor XR] 75 mg PO HS 03/13/21 01/08/22 Sennosides [Senokot] 8.6 mg PO HS 06/05/21 01/08/22 busPIRone HCl [Buspar] 10 mg PO BID 06/05/21 01/08/22 Famotidine [Pepcid] 40 mg PO DAILY 01/08/22 01/08/22 Meloxicam [Mobic] 15 mg PO DIRECTED 01/08/22 01/08/22 Oxybutynin Chloride [Ditropan] 5 mg PO DIRECTED 01/08/22 01/08/22 Previous Rx's Medication Instructions Recorded amLODIPine [Norvasc] 10 mg PO DAILY 30 Days #30 tab 03/15/21 Carbidopa-Levodopa 25-100 mg 1 each PO BID tab 01/14/22 [Sinemet 25-100 mg] LORazepam [Ativan] 1 mg PO BID #4 tab 01/14/22 Pantoprazole [Protonix] 40 mg PO AC-BRKFST tab 01/14/22 Allergies Allergy/AdvReac Type Severity Reaction Status Date / Time shellfish derived Allergy Swelling Verified 04/27/22 18:52 Review of Systems ROS Statement: Those systems with pertinent positive or pertinent negative responses have been documented in the HPI. ROS Other: All systems not noted in ROS Statement are negative. Past Medical History Past Medical History: Asthma, Dementia, GERD/Reflux, Hypertension, Memory Impairment, Prostate Disorder, Skin Disorder, Sleep Apnea/CPAP/BIPAP, Thyroid Disorder Additional Past Medical History / Comment(s): Pt states he has had a recent UTI treated with antibiotic, PUD, hiatal hernia, benign colon polyps, constipation, BPH, vertigo, peyronies disorder, iron anemia, GILBERTO without device, hypothyroid, acute kidney injury, psoriaisis. History of Any Multi-Drug Resistant Organisms: None Reported Past Surgical History: Orthopedic Surgery Additional Past Surgical History / Comment(s): Penile implant, EGD, colonoscopy, L hand surgery d/t injury, R hand trigger finger release. Past Anesthesia/Blood Transfusion Reactions: No Reported Reaction Past Psychological History: ADD/ADHD, Anxiety, Depression Smoking Status: Former smoker Past Alcohol Use History: None Reported Past Drug Use History: None Reported - Past Family History Mother Family Medical History: No Reported History Additional Family Medical History / Comment(s): Mother lived to be 94 yrs old. Father Family Medical History: No Reported History Additional Family Medical History / Comment(s): Father lived to be 97 yrs old. General Exam Limitations: no limitations General appearance: alert, in no apparent distress Head exam: Present: atraumatic, normocephalic, normal inspection Eye exam: Present: normal appearance, PERRL, EOMI. Absent: scleral icterus, conjunctival injection, periorbital swelling ENT exam: Present: normal exam, mucous membranes moist Neck exam: Present: normal inspection. Absent: tenderness, meningismus, lymphadenopathy Respiratory exam: Present: normal lung sounds bilaterally. Absent: respiratory distress, wheezes, rales, rhonchi, stridor Cardiovascular Exam: Present: regular rate, normal rhythm, normal heart sounds. Absent: systolic murmur, diastolic murmur, rubs, gallop, clicks GI/Abdominal exam: Present: soft, normal bowel sounds. Absent: distended, tenderness, guarding, rebound, rigid Extremities exam: Present: normal inspection, full ROM, normal capillary refill. Absent: tenderness, pedal edema, joint swelling, calf tenderness Back exam: Present: normal inspection Neurological exam: Present: alert, oriented X3, CN II-XII intact Psychiatric exam: Present: normal affect, normal mood Skin exam: Present: warm, dry, intact, normal color. Absent: rash Course Vital Signs 04/27/22 04/27/22 18:46 20:24 Temperature 97.7 F Pulse Rate 55 L 78 Respiratory 16 15 Rate Blood Pressure 133/66 131/74 O2 Sat by Pulse 99 100 Oximetry EKG Findings - EKG Comments: EKG Findings:: EKG demonstrates a sinus rhythm with a rate of 56. QRS 149. QTC of 466. Widened QRS. No acute ST segment elevations or depressions Medical Decision Making - Medical Decision Making Was pt. sent in by a medical professional or institution? correction Did you speak to anyone other than the patient for history? ems Did you review nursing and triage notes? yes and I agree Were old charts reviewed? correction records Differential Diagnosis? MDM Differential Syncope: Valvular disease, hypertrophic cardiomyopathy, pulmonary embolism, tamponade, tachycardia, bradycardia, [place], hypovolemia, hemorrhage, dissection, anemia, intracranial hemorrhage, seizure, hypoglycemia, carbon monoxide poisoning; this is not meant to be an all-inclusive list. EKG interpreted by me (3pts min.)? yes X-rays interpreted by me (1pt min.)? yes CT interpreted by me (1pt min.)? yes U/S interpreted by me (1pt. min.)? not done What testing was considered but not performed? (CT, X-rays, U/S, labs)? Why? none What meds were considered but not given? Why? none Did you discuss the management of the patient with other professionals? no Did you reconcile home meds? no Was smoking cessation discussed for >3mins.? no Was critical care preformed (if so, how long)? no Were there social determinants of health that impacted care today? How? (Homelessness, low income, unemployed, alcoholism, drug addiction, transportation, low edu. Level, literacy, decrease access to med. care, usp, rehab)? none Was there de-escalation of care discussed even if they declined? (Discuss DNR or withdrawal of care, Hospice)? no What co-morbidities impacted this encounter? (DM, HTN, Smoking, COPD, CAD, Cancer, CVA, Hep., AIDS, mental health diagnosis, sleep apnea, morbid obesity)? dementia Was patient admitted / discharged? Upon arrival patient is placed on continuous pulse ox and cardiac monitoring. 12-lead EKG is obtained. IV is established laboratory studies were conducted and reviewed. Patient is sent for chest x-ray and CT of his brain and cervical spine. CT brain demonstrates cerebral mild atrophy with no acute intracranial process. No change. Chest x-ray demonstrates no active cardio pulmonary disease. Patient has remained on engine monitor without signs of arrhythmia. At this time patient is stable for discharge back to his facility. Instructed to follow up with the physician in 2-4 days and return for any new or worsening symptoms. Patient agreeable discharged in stable condition Undiagnosed new problem with uncertain prognosis? yes Drug Therapy requiring intensive monitoring for toxicity (Heparin, Nitro, Insulin, Cardizem)? no Were any procedures done? no Diagnosis/symptom? acute syncope Acute, or Chronic, or Acute on Chronic? acute Uncomplicated (without systemic symptoms) or Complicated (systemic symptoms)? complicated Side effects of treatment? none Exacerbation, Progression, or Severe Exacerbation] no Poses a threat to life or bodily function? no - Lab Data Result diagrams: 04/27/22 19:10 04/27/22 19:10 Lab Results 04/27/22 04/27/22 04/27/22 Range/Units 19:10 19:10 19:10 WBC 5.8 (3.8-10.6) k/uL RBC 4.39 (4.30-5.90) m/uL Hgb 12.7 L (13.0-17.5) gm/dL Hct 38.1 L (39.0-53.0) % MCV 86.7 (80.0-100.0) fL MCH 28.9 (25.0-35.0) pg MCHC 33.3 (31.0-37.0) g/dL RDW 14.6 (11.5-15.5) % Plt Count 165 (150-450) k/uL MPV 7.1 Neutrophils % 78 % Lymphocytes % 13 % Monocytes % 5 % Eosinophils % 2 % Basophils % 1 % Neutrophils # 4.5 (1.3-7.7) k/uL Lymphocytes # 0.7 L (1.0-4.8) k/uL Monocytes # 0.3 (0-1.0) k/uL Eosinophils # 0.1 (0-0.7) k/uL Basophils # 0.0 (0-0.2) k/uL PT 10.5 (9.0-12.0) sec INR 1.0 (<1.2) APTT 24.4 (22.0-30.0) sec Sodium 140 (137-145) mmol/L Potassium 4.6 (3.5-5.1) mmol/L Chloride 111 H (98-107) mmol/L Carbon Dioxide 25 (22-30) mmol/L Anion Gap 4 mmol/L BUN 31 H (9-20) mg/dL Creatinine 1.16 (0.66-1.25) mg/dL Est GFR (CKD-EPI)AfAm 70 (>60 ml/min/1.73 sqM) Est GFR (CKD-EPI)NonAf 61 (>60 ml/min/1.73 sqM) Glucose 149 H (74-99) mg/dL Calcium 8.2 L (8.4-10.2) mg/dL Magnesium 1.9 (1.6-2.3) mg/dL Total Bilirubin 0.6 (0.2-1.3) mg/dL AST 24 (17-59) U/L ALT 20 (4-49) U/L Alkaline Phosphatase 68 (38-126) U/L Troponin I (0.000-0.034) ng/mL Total Protein 5.6 L (6.3-8.2) g/dL Albumin 3.1 L (3.5-5.0) g/dL 04/27/22 Range/Units 19:10 WBC (3.8-10.6) k/uL RBC (4.30-5.90) m/uL Hgb (13.0-17.5) gm/dL Hct (39.0-53.0) % MCV (80.0-100.0) fL MCH (25.0-35.0) pg MCHC (31.0-37.0) g/dL RDW (11.5-15.5) % Plt Count (150-450) k/uL MPV Neutrophils % % Lymphocytes % % Monocytes % % Eosinophils % % Basophils % % Neutrophils # (1.3-7.7) k/uL Lymphocytes # (1.0-4.8) k/uL Monocytes # (0-1.0) k/uL Eosinophils # (0-0.7) k/uL Basophils # (0-0.2) k/uL PT (9.0-12.0) sec INR (<1.2) APTT (22.0-30.0) sec Sodium (137-145) mmol/L Potassium (3.5-5.1) mmol/L Chloride (98-107) mmol/L Carbon Dioxide (22-30) mmol/L Anion Gap mmol/L BUN (9-20) mg/dL Creatinine (0.66-1.25) mg/dL Est GFR (CKD-EPI)AfAm (>60 ml/min/1.73 sqM) Est GFR (CKD-EPI)NonAf (>60 ml/min/1.73 sqM) Glucose (74-99) mg/dL Calcium (8.4-10.2) mg/dL Magnesium (1.6-2.3) mg/dL Total Bilirubin (0.2-1.3) mg/dL AST (17-59) U/L ALT (4-49) U/L Alkaline Phosphatase (38-126) U/L Troponin I <0.012 (0.000-0.034) ng/mL Total Protein (6.3-8.2) g/dL Albumin (3.5-5.0) g/dL Disposition Clinical Impression: Syncope, Concussion Disposition: HOME SELF-CARE Condition: Stable Instructions (If sedation given, give patient instructions): Syncope (DC) Additional Instructions: Your lab testing and imaging of your head was negative. Please follow-up with your doctor in 2-4 days and return for any new or worsening symptoms Is patient prescribed a controlled substance at d/c from ED?: No Referrals: Amadou Prajapati MD [Primary Care Provider] - 1-2 days Time of Disposition: 20:21
[2022-04-27 19:22] LABS: Basophils % (A) 1 %; Eosinophils # (A) 0.1 k/uL (0-0.7); Eosinophils % (A) 2 %; HCT 38.1 % (39.0-53.0); HGB 12.7 gm/dL (13.0-17.5); Lymphocytes # (A) 0.7 k/uL (1.0-4.8); Lymphocytes % (A) 13 %; MCH 28.9 pg (25.0-35.0); MCHC 33.3 g/dL (31.0-37.0); MCV 86.7 fL (80.0-100.0); Mean Platelet Volume 7.1; Monocytes # (A) 0.3 k/uL (0-1.0); Monocytes % (A) 5 %; Neutrophils # (A) 4.5 k/uL (1.3-7.7); Neutrophils % (A) 78 %; Platelet Count 165 k/uL (150-450); RBC 4.39 m/uL (4.30-5.90); RDW 14.6 % (11.5-15.5); WBC 5.8 k/uL (3.8-10.6)
[2022-04-27 19:35] LABS: Albumin 3.1 g/dL (3.5-5.0); Calcium 8.2 mg/dL (8.4-10.2); Magnesium 1.9 mg/dL (1.6-2.3); Potassium 4.6 mmol/L (3.5-5.1); Total Bilirubin 0.6 mg/dL (0.2-1.3); Total Protein 5.6 g/dL (6.3-8.2)
[2022-04-27 19:46] LABS: Partial Thromboplastin Time 24.4 sec (22.0-30.0); Prothrombin Time 10.5 sec (9.0-12.0)
--- NOTE | 2022-04-27 20:04 | XR ---
EXAMINATION TYPE: XR chest 2V DATE OF EXAM: 04/27/2022 COMPARISON: 01/28/2022 HISTORY: Cough TECHNIQUE: Single view FINDINGS: There is no heart failure nor confluent pneumonic infiltrate. Costophrenic angles are clear . There are chest leads. There is no evidence of pleural effusion. Bony thorax is intact. IMPRESSION: No active cardiopulmonary disease. There is clearing of the subsegmental atelectasis left lung base compared to the old exam.
--- NOTE | 2022-04-27 20:09 | CT ---
EXAMINATION TYPE: CT brain oma wo con DATE OF EXAM: 04/27/2022 COMPARISON: 01/08/2022 CT brain HISTORY: Altered mental status. CT DLP: 1446.2 mGycm Automated exposure control for dose reduction was used. There is cerebral cortical atrophy. There is no mass effect or midline shift. No sign of intracranial hemorrhage. Calvarium is intact Cervical vertebra have fairly normal alignment. There is mild narrowing at C5-6 and C6-7 disc spaces. Facet joints are intact. No compression fracture. Skull base is intact. There is normal aeration of the mastoid sinuses. IMPRESSION: Cerebral mild atrophy. No acute intracranial abnormality. No change compared to the old exam. Minor degenerative changes in the cervical spine. No fracture.
[2022-04-27 20:26] VITALS: BP 131/74; PULSE 78; RESP 15
== END 2022-04-27 21:25 | disposition home or self-care (01) ==
LOC: EC 18:42
DX: S06.0XAA Concussion with loss of consciousness status unknown, initial encounter (principal); J45.909 Unspecified asthma, uncomplicated; K21.9 Gastro-esophageal reflux disease without esophagitis; I10 Essential (primary) hypertension; F41.9 Anxiety disorder, unspecified; F32.A Depression, unspecified; Z87.891 Personal history of nicotine dependence; Z91.013 Allergy to seafood; Z79.899 Other long term (current) drug therapy; X58.XXXA Exposure to other specified factors, initial encounter
CPT/HCPCS: 36415; 70450; 71046; 72125; 80053; 83735; 84484; 85025; 85610; 85730; 93005; 96360; 99285